=== PATIENT | male | born 1935 | race Caucasian/White ===

== ENCOUNTER 2017-03-14 16:11 | Inpatient (IN) | payer OTHER ==
[2017-03-14 16:30] VITALS: BMI 28.1
[2017-03-14] MEDS ORDERED: SODIUM CHLORIDE 500 ML IV STA (17:51)
[2017-03-14] MEDS ORDERED: PIPERACILLIN/TAZOB 4.5 GM/100 ML PRE-DOCKED IVPB ONE (17:57)
[2017-03-14] MEDS ORDERED: VANCOMYCIN 1,250 MG in DEXTROSE 5%-WATER - 250 ML IVPB ONE (17:57)
--- NOTE | 2017-03-14 18:05 | PDOC ---
History of Present Illness - General Chief Complaint: Redness To Affected Area Stated Complaint: INFECTION Time Seen by Provider: 03/14/17 16:52 History Source: Patient Exam Limitations: No Limitations - History of Present Illness Initial Comments: 03/14/17 18:08 Patient is a 81M with history of IDDM, HTN, Prostate Ca (last treated about 5 years ago, stable now), and prior hospitalization for cellulitis (2 years ago) here today complaining of right foot swelling and erythema, sent by his PCP. He says that he thought that he had the flu, including fevers and chills, last , then noticed that his leg was swollen and erythematous Sunday. He denies having a prior blood clot, recent travel, chest pain and shortness of breath. He also denies nausea and vomiting. Past History - Past Medical History Allergies/Adverse Reactions: Allergies Allergy/AdvReac Type Severity Reaction Status Date / Time No Known Allergies Allergy Verified 04/15/15 18:00 Home Medications: Ambulatory Orders Amlodipine Besylate [Norvasc -] 2.5 mg PO DAILY 04/15/15 Calcium Carb/Vitamin D3/Vit K1 [Calcium + D Soft Chewable Tab] 1 each PO DAILY 04/15/15 Fexofenadine HCl [Mariel] 180 mg PO DAILY PRN 04/15/15 Fluticasone Propionate [Flovent Diskus] 110 mcg IH DAILY 04/15/15 Glimepiride [Amaryl] 2 mg PO BID 04/15/15 Hydrochlorothiazide 50 mg PO DAILY 04/15/15 Insulin (Levemir) [Levemir Flexpen -] 26 units SQ DAILY 04/15/15 Insulin (Novolog) [Novolog Flexpen -] 6 units SQ HS 04/15/15 Irbesartan [Avapro] 300 mg PO DAILY 04/15/15 Metformin HCl 500 mg PO BID 04/15/15 [place]-3 Fatty Acids [[place]-3] 1,000 mg PO DAILY 04/15/15 Red Yeast Rice 120 mg PO DAILY 04/15/15 Tamsulosin HCl [Flomax -] 0.4 mg PO DAILY 04/15/15 Cephalexin Monohydrate [Keflex -] 500 mg PO TID #20 capsule 04/22/15 Asthma: Yes Cancer: Yes (Prostate Cancer) Cardiac Disorders: Yes Diabetes: Yes HTN: Yes - Surgical History Abdominal Surgery: Yes (HERNIA) Orthopedic Surgery: Yes (rotator cuff x 2) - Suicide/Smoking/Psychosocial Hx Smoking History: Never smoked Have you smoked in the past 12 months: No Hx Alcohol Use: No Drug/Substance Use Hx: No Substance Use Type: None Review of Systems - Review of Systems Comments:: 03/14/17 18:13 GENERAL/CONSTITUTIONAL: positive for fevers and chills. No weakness. HEAD, EYES, EARS, NOSE AND THROAT: No change in vision. No sore throat. CARDIOVASCULAR: No chest pain or shortness of breath RESPIRATORY: No cough, wheezing, or hemoptysis. GASTROINTESTINAL: No nausea, vomiting, diarrhea or constipation. GENITOURINARY: No dysuria, frequency, or change in urination. MUSCULOSKELETAL: Positive for right leg pain. No neck or back pain. SKIN: Positive for right leg erythema. NEUROLOGIC: No headache, vertigo, loss of consciousness, or change in strength/ sensation. HEMATOLOGIC/LYMPHATIC: No anemia, easy bleeding, or history of blood clots. ALLERGIC/IMMUNOLOGIC: No hives or skin allergy. *Physical Exam - Vital Signs Last Vital Signs Temp Pulse Resp BP Pulse Ox 98.7 F 117 H 20 156/82 95 03/14/17 16:26 03/14/17 16:26 03/14/17 16:26 03/14/17 16:26 03/14/17 16:26 - Physical Exam Comments: 03/14/17 18:15 GENERAL: Awake, alert, and fully oriented, in no acute distress HEAD: No signs of trauma, normocephalic, atraumatic EYES: PERRLA, EOMI, sclera anicteric, conjunctiva clear ENT: Auricles normal inspection, hearing grossly normal, nares patent, oropharynx clear without exudates. Moist mucosa NECK: Normal ROM, supple, no lymphadenopathy, JVD, or masses LUNGS: No distress, speaks full sentences, clear to auscultation bilaterally HEART: Regular rate and rhythm (HR 90), normal S1 and S2, no murmurs, rubs or gallops, peripheral pulses normal and equal bilaterally. ABDOMEN: Soft, nontender, normoactive bowel sounds. No guarding, no rebound. No masses EXTREMITIES: Normal range of motion. 2+ pitting edema in right leg. Right leg is erythematous and warm to just below albright. No crepitus. No clubbing or cyanosis. NEUROLOGICAL: Cranial nerves II through XII grossly intact. Normal speech, no focal sensorimotor deficits ED Treatment Course - LABORATORY CBC & Chemistry Diagram: 03/14/17 18:57 03/14/17 18:57 - RADIOLOGY Radiology Studies Ordered: Category Date Time Status DUPLEX VASCUL US-1 LEG [US] Stat Ultrasound 03/14/17 17:54 Ordered Medical Decision Making - Medical Decision Making 03/14/17 18:19 Patient is an 81M with history of IDDM, HTN, prostate ca and prior admission for cellulitis here today with right leg swelling and erythema. Tachycardic at triage. HR of 90 at examination. Vital signs otherwise stable and normal. Will evaluate with cbc, cmp, lactate blood cultures and x-ray. Will treat with fluids , vanc and zosyn. 03/14/17 19:41 Laboratory Tests 03/14/17 03/14/17 03/14/17 18:57 18:57 18:57 WBC 9.2 Hgb 14.6 D Hct 42.4 Plt Count 181 D INR 1.11 Anion Gap 7 L CBC normal, no gap, cmp reassuring, INR normal 03/14/17 19:[address] Fisher. Ultrasound still pending. 03/14/17 21:40 No DVT on ultrasound. 03/14/17 21:47 X-ray shows no subcutaneous air. *DC/Admit/Observation/Transfer Diagnosis at time of Disposition: Cellulitis of right anterior lower leg - Discharge Dispostion Condition at time of disposition: Stable Admit: Yes
[2017-03-14] MEDS ORDERED: PIPERACILLIN/TAZOB 4.5 GM 100 ML IVPB ONE (18:18)
[2017-03-14 19:05] LABS: BASOPHIL 0.8 % (0-2.0); EOSINOPHIL 1.2 % (0-4.5); MCH 31.2 pg (25.7-33.7); MCHC 34.4 g/dl (32.0-35.9); MEAN CELL VOLUME 90.5 fl (80-96); MEAN PLT VOLUME 9.4 fl (7.5-11.1); NEUTROPHILS 76.2 % (42.8-82.8); PLATELET COUNT 181 K/MM3 (134-434); WHITE BLOOD COUNT 9.2 K/mm3 (4.0-10.0)
[2017-03-14 19:18] LABS: INR 1.11 (0.82-1.09); PROTHROMBIN TIME (PATIENT) 12.2 SEC (9.98-11.88)
[2017-03-14 19:29] LABS: ALBUMIN 3.5 g/dl (3.4-5.0); ALK PHOS 90 U/L (45-117); ANION GAP 7 (8-16); BILIRUBIN,TOTAL 0.8 mg/dL (0.2-1.0); CALCIUM 9.2 mg/dL (8.5-10.1); CO2 28 mmol/L (21-32); CREATININE 0.8 mg/dL (0.7-1.3); GLUCOSE,RANDOM 176 mg/dL (74-106); SGPT/ALT 25 U/L (12-78); TOT PROT 6.9 g/dl (6.4-8.2)
[2017-03-14 19:35] LABS: SGOT/AST 24 U/L (15-37)
--- NOTE | 2017-03-14 19:42 | PDOC ---
Attending Attestation - Resident Resident Name: ParthAnup - ED Attending Attestation I have performed the following: I have examined & evaluated the patient, The case was reviewed & discussed with the resident, I agree w/resident's findings & plan, Exceptions are as noted - HPI HPI: 03/14/17 19:39 81-year-old male with history of insulin-dependent diabetes, prostate CVA, hypertension presents to the ER with pain, erythema and swelling of the right lower extremity for the past 3 days. - Physicial Exam PE: 03/14/17 19:40 Patient is awake and alert, nontoxic-appearing. Initial evaluation patient is noted to be afebrile and mildly tachycardic. cta rrr sft, nd, nt rle: + Well demarcated erythema extending from the right great toe to mid tibia , warm to touch, mildly tender to palpation consistent with cellulitis. No crepitus is appreciated. There is no proximal lymphadenopathy. - Medical Decision Making 03/14/17 19:41 Patient is 81-year-old male with insulin-dependent diabetes, hypertension, presents to the ER with right lower extremity cellulitis. Will administer IV vancomycin and Zosyn for polymicrobial infection; will rule out DVT with Doppler ultrasound. Will admit. <Sy Salvador - Last Filed: 03/14/17 19:39> - Medical Decision Making 03/14/17 19:42 Dr. Jonas paged via phone answering service. 03/14/17 19:45 Dr. Fuentes returned the page and patients case was discussed. Documentation prepared by Tatiana Blanco, acting as medical billing coordinator for Sy Salvador MD <Tatiana Blanco - Last Filed: 03/14/17 19:46>
[2017-03-14] MEDS ORDERED: LORATADINE 10 MG TABLET PO PRN (20:22)
[2017-03-14] MEDS ORDERED: ACETAMINOPHEN 325 MG TABLET (FP) PO PRN (20:26)
[2017-03-15] MEDS ORDERED: PIPERACILLIN/TAZOB 3.375 GM 3.375 GM in DEXTROSE 5%-WATER - 50 ML IVPB ONE ×2 (02:00→11:30)
[2017-03-15] MEDS ORDERED: PIPERACILLIN/TAZOBACTAM 3.375 GM VIAL IVPB ONE ×3 (02:11→17:11)
[2017-03-15] MEDS ORDERED: DEXTROSE 5%-WATER - 50 ML IVPB ONE ×3 (02:11→17:12)
[2017-03-15] MEDS: HEPARIN NA (PORCINE) 5,000 UNITS/ML 1ML VIAL SQ SCH ×3 (02:32→22:27)
[2017-03-15] MEDS: metFORMIN HCL 500 MG TABLET (FP) PO SCH ×2 (06:24→16:45)
[2017-03-15] MEDS: GLIMEPIRIDE 2 MG TABLET (FP) PO SCH ×2 (06:24→18:51)
[2017-03-15] MEDS: INSULIN SLIDING SCALE (NOVOLOG) 1 VIAL SQ SCH ×5 (06:25→22:32)
[2017-03-15 08:31] LABS: BASOPHIL 0.4 % (0-2.0); EOSINOPHIL 2.6 % (0-4.5); MCHC 34.4 g/dl (32.0-35.9); MEAN CELL VOLUME 90.1 fl (80-96); NEUTROPHILS 71.6 % (42.8-82.8); PLATELET COUNT 172 K/MM3 (134-434); RDW 13.7 % (11.9-15.9); WHITE BLOOD COUNT 7.8 K/mm3 (4.0-10.0)
--- NOTE | 2017-03-15 08:59 | HP ---
Admitting History and Physical - Primary Care Physician PCP: Anup Jonas - Admission Chief Complaint: patient came to my office on the day of admission complaining of feeling weak for 2 days with 101 fevers at home. On the morning of admission he awoke with a red warm rash on his right lateral calf and right foot and great toe. With a history of diabetes he mentioned his glucose recently was quite elevated often over 200. History of Present Illness: Patient is a known diabetic type II on insulin and recently had an improved glucose profile and hemoglobin A1c. However in the last few days he's noticed his glucose to be quite elevated over 200 and low grade fevers up to 101F for 2 nights. On the morning of admission he awoke with an erythematous pruritic rash on his right lateral calf, ankle, foot and swelling of his great toe and foot. Blood sugars remained elevated. He came to the office and a diagnosis acute cellulitis was made. He was sent to the emergency room. Blood cultures were done antibiotics were started and the patient was admitted with the diagnosis of acute cellulitis History Source: Patient Limitations to Obtaining History: No Limitations - Past Medical History Cardiovascular: Yes: HTN, Hyperlipdemia (prostate with radiation and seeds. Bladder cancer followed by Dr. Carranza at [facility]) Pulmonary: Yes: Pneumonia (???) Gastrointestinal: Yes: Other (?? diverticulosis) Renal/: Yes: Cancer (bladder and prostate) Infectious Disease: Yes: Other (pneumonia ) Psych: Yes: Anxiety Musculoskeletal: Yes: Osteoarthritis Endocrine: Yes: Diabetes Mellitus - Smoking History Smoking history: Never smoked Have you smoked in the past 12 months: No - Alcohol/Substance Use Hx Alcohol Use: No History of Substance Use: reports: None - Social History Usual Living Arrangement: Yes: With Spouse ADL: Independent Occupation: retired History of Recent Travel: No Home Medications - Allergies Allergies/Adverse Reactions: Allergies Allergy/AdvReac Type Severity Reaction Status Date / Time No Known Allergies Allergy Verified 03/14/17 22:07 - Home Medications Home Medications: Ambulatory Orders Amlodipine Besylate [Norvasc -] 2.5 mg PO DAILY 04/15/15 Calcium Carb/Vitamin D3/Vit K1 [Calcium + D Soft Chewable Tab] 1 each PO DAILY 04/15/15 Glimepiride [Amaryl] 2 mg PO BID 04/15/15 Hydrochlorothiazide 50 mg PO DAILY 04/15/15 Insulin (Levemir) [Levemir Flexpen -] 26 units SQ AM 04/15/15 Insulin (Novolog) [Novolog Flexpen -] 6 units SQ HS 04/15/15 Irbesartan [Avapro] 300 mg PO DAILY 04/15/15 Metformin HCl 500 mg PO BID 04/15/15 [place]-3 Fatty Acids [[place]-3] 1,000 mg PO DAILY 04/15/15 Tamsulosin HCl [Flomax -] 0.4 mg PO DAILY 04/15/15 Lovastatin 10 mg PO ASDIR 03/14/17 Potassium Chloride [Klor-Con 10] 20 meq PO DAILY 03/14/17 Family Disease History - Family Disease History Family Disease History: Heart Disease: Father, CA: Brother (colon), Respiratory : Father, Other: Mother (pneumonia) Review of Systems - Review of Systems Constitutional: reports: Fever, Lethargy. denies: Chills Eyes: denies: Blurred Vision Cardiovascular: denies: Chest Pain Respiratory: reports: No Symptoms Gastrointestinal: reports: No Symptoms Genitourinary: reports: Frequency. denies: Dysuria Musculoskeletal: reports: Muscle Weakness Integumentary: reports: Change in Color, Erythema, Pruritis, Rash Neurological: reports: Weakness Endocrine: denies: Excessive Sweating Physical Examination Vital Signs: Vital Signs Temperature 98.6 F 03/15/17 05:58 Pulse Rate 63 03/15/17 05:58 Respiratory Rate 18 03/15/17 05:58 Blood Pressure 118/58 03/15/17 05:58 O2 Sat by Pulse Oximetry (%) 96 03/15/17 01:44 Constitutional: Yes: Calm Eyes: Yes: Conjunctiva Clear Cardiovascular: Yes: Regular Rate and Rhythm Respiratory: Yes: Regular. No: Cough Gastrointestinal: Yes: Soft Renal/: No: Jaime Present Extremities: Yes: Erythema (and warmth right lower extremity especially right calf pruriticerythematous rash and erythema and swelling of the great toe and foot right side) Edema: Yes Edema: RLE: 1+ Peripheral Pulses WNL: Yes Integumentary: Yes: Erythema (right lower extremity as described above), Rash Neurological: Yes: Alert, Oriented Labs: CBC, BMP 03/15/17 06:45 Imaging - Results Chest X-ray: Report Reviewed Ultrasound: Report Reviewed EKG: Report Reviewed Problem List - Problems (1) Cellulitis of right anterior lower leg Assessment/Plan: on Zosyn IV. Seen by infectious disease DrMolly Initial white count 9200 Code(s): L03.115 - CELLULITIS OF RIGHT LOWER LIMB (2) Diabetes type 2, uncontrolled Assessment/Plan: BGM's have been ordered. Before this current acute illness blood glucose had been stable with a stable hemoglobin A1c. Code(s): E11.65 - TYPE 2 DIABETES MELLITUS WITH HYPERGLYCEMIA (3) Bladder cancer Assessment/Plan: Has a cystoscopy every [address] Bravo urology . Code(s): C67.9 - MALIGNANT NEOPLASM OF BLADDER, UNSPECIFIED (4) Prostate cancer Assessment/Plan: treated with radiation seeds. Recent lab, PSA nearly undetectable Code(s): C61 - MALIGNANT NEOPLASM OF PROSTATE
[2017-03-15 09:01] LABS: ALK PHOS 73 U/L (45-117); ANION GAP 11 (8-16); BILIRUBIN,TOTAL 0.9 mg/dL (0.2-1.0); CALCIUM 8.6 mg/dL (8.5-10.1); CO2 27 mmol/L (21-32); CREATININE 0.9 mg/dL (0.7-1.3); GLUCOSE,RANDOM 179 mg/dL (74-106); SGOT/AST 11 U/L (15-37); SGPT/ALT 20 U/L (12-78); TOT PROT 5.9 g/dl (6.4-8.2)
[2017-03-15] MEDS: TAMSULOSIN HCL 0.4 MG CAP.ER.24H (FP) PO SCH (09:30)
[2017-03-15] MEDS ORDERED: PIPERACILLIN/TAZOB 3.375 GM/50 ML PRE-DOCKED IVPB SCH (10:00)
[2017-03-15] MEDS ORDERED: INSULIN DETEMIR 100 UNITS/ML MDV SQ SCH (10:00)
[2017-03-15] MEDS ORDERED: RED YEAST RICE PO SCH (10:00)
[2017-03-15] MEDS: LOSARTAN POTASSIUM 50 MG TABLET (FP) PO SCH (10:38)
[2017-03-15] MEDS: HYDROCHLOROTHIAZIDE 25 MG TABLET (FP) PO SCH (10:38)
[2017-03-15] MEDS: amLODIPine BESYLATE 2.5 MG TABLET (FP) PO SCH (10:38)
--- NOTE | 2017-03-15 10:40 | EKG ---
Test Reason : Blood Pressure : / mmHG Vent. Rate : 063 BPM Atrial Rate : 063 BPM P-R Int : 172 ms QRS Dur : 116 ms QT Int : 388 ms P-R-T Axes : -20 -41 011 degrees QTc Int : 397 ms NORMAL SINUS RHYTHM LEFT AXIS DEVIATION ABNORMAL ECG WHEN COMPARED WITH ECG OF 15-APR-2015 18:11, FUSION COMPLEXES ARE NO LONGER PRESENT VENT. RATE HAS DECREASED BY 61 BPM RIGHT BUNDLE BRANCH BLOCK IS NO LONGER PRESENT CRITERIA FOR INFERIOR INFARCT ARE NO LONGER PRESENT Confirmed by MAGAN SEYMOUR MD ([id number]) on 03/15/2017 10:40:06 AM Referred By: JOSEPH HERNANDEZ Confirmed By:MAGAN SEYMOUR MD
[2017-03-15] MEDS: OMEGA-3 ACID ETHYL ESTERS (FATTY-ACIDS) 1 GM CAPSULE (FP) PO SCH (12:03)
[2017-03-15] MEDS ORDERED: FLU VACCINE QUAD 60 MCG/0.5 ML (MDV 17-18) IM ONE (14:45)
--- NOTE | 2017-03-15 16:37 | CON.ID ---
Consult Consult Specialty:: infectious diseases Referred by:: Reason for Consultation:: cellulitis of the rt leg - History of Present Illness Chief Complaint: swelling of the leg and redness History of Present Illness: 81M with history of IDDM, HTN, Prostate Ca ), and prior hospitalization for cellulitis (2 years ago) here today complaining of right foot swelling and erythema, sent by his PCP. He says that he thought that he had the flu, including fevers and chills, last , then noticed that his leg was swollen and erythematous Sunday. H according to his story the patient mentions it came on suddenly on his foot and then extended to the leg also the leg became warm and swollen currently he has cellulitis on the foot and the leg with interval normal skin the cellulitis is extending till the knee but not above that patient denies any fever and currently feels much better no other complaints - History Source History Provided By: Patient Limitations to Obtaining History: No Limitations - Past Medical History Cardio/Vascular: Yes: HTN Pulmonary: Yes: Pneumonia (???) Gastrointestinal: Yes: Other (?? diverticulosis) Renal/: Yes: Cancer (bladder and prostate) Infectious Disease: Yes: Other (pneumonia ) Psych: Yes: Addictions, Anxiety Endocrine: Yes: Diabetes Mellitus Additional Medical History: rotator cuff surgery - Alcohol/Substance Use Hx Alcohol Use: No History of Substance Use: reports: None - Smoking History Smoking history: Never smoked Have you smoked in the past 12 months: No - Social History Usual Living Arrangement: With Spouse ADL: Independent Occupation: retired History of Recent Travel: No Home Medications - Allergies Allergies/Adverse Reactions: Allergies Allergy/AdvReac Type Severity Reaction Status Date / Time No Known Allergies Allergy Verified 03/14/17 22:07 - Home Medications Home Medications: Ambulatory Orders Amlodipine Besylate [Norvasc -] 2.5 mg PO DAILY 04/15/15 Calcium Carb/Vitamin D3/Vit K1 [Calcium + D Soft Chewable Tab] 1 each PO DAILY 04/15/15 Glimepiride [Amaryl] 2 mg PO BID 04/15/15 Hydrochlorothiazide 50 mg PO DAILY 04/15/15 Insulin (Levemir) [Levemir Flexpen -] 26 units SQ AM 04/15/15 Insulin (Novolog) [Novolog Flexpen -] 6 units SQ HS 04/15/15 Irbesartan [Avapro] 300 mg PO DAILY 04/15/15 Metformin HCl 500 mg PO BID 04/15/15 [place]-3 Fatty Acids [[place]-3] 1,000 mg PO DAILY 04/15/15 Tamsulosin HCl [Flomax -] 0.4 mg PO DAILY 04/15/15 Lovastatin 10 mg PO ASDIR 03/14/17 Potassium Chloride [Klor-Con 10] 20 meq PO DAILY 03/14/17 Family Disease History - Family Disease History Family Disease History: Heart Disease: Father, CA: Brother (colon), Respiratory : Father, Other: Mother (pneumonia) Review of Systems - Review of Systems Constitutional: reports: Weakness Eyes: reports: No Symptoms HENT: reports: No Symptoms Neck: reports: No Symptoms Cardiovascular: reports: No Symptoms Respiratory: reports: No Symptoms Gastrointestinal: reports: No Symptoms Genitourinary: reports: No Symptoms Integumentary: reports: Change in Color, Erythema, Other Neurological: reports: No Symptoms Endocrine: reports: No Symptoms Hematology/Lymphatic: reports: No Symptoms Psychiatric: reports: No Symptoms Physical Exam Vital Signs: Vital Signs Temperature 98.5 F 03/15/17 14:19 Pulse Rate 77 03/15/17 14:19 Respiratory Rate 18 03/15/17 10:00 Blood Pressure 116/66 03/15/17 14:19 O2 Sat by Pulse Oximetry (%) 93 L 03/15/17 09:00 Constitutional: Yes: Well Nourished, No Distress, Calm Eyes: Yes: Conjunctiva Clear Cardiovascular: Yes: Regular Rate and Rhythm, S1, S2 Respiratory: Yes: Regular, CTA Bilaterally Gastrointestinal: Yes: Normal Bowel Sounds, Soft Musculoskeletal: Yes: Other Extremities: Yes: Erythema Edema: RLE: 1+ Integumentary: Yes: Erythema, Onychomycosis Neurological: Yes: Alert, Oriented Psychiatric: Yes: Alert, Oriented Labs: CBC, BMP 03/15/17 06:45 03/15/17 06:45 Imaging - Results Chest X-ray: Report Reviewed, Image Reviewed X-ray: Report Reviewed, Image Reviewed Assessment/Plan patient has multiple mediucal problems and developed sudden cellulitis of the leg which is improving also i have noticed that the patient does have fungal infection of the toes which could have lead to this patient is diabetic and he mentions that his sugars were very high cellulitits of the rt leg prostate ca swelling of the leg dm plan abx will add antifungal cream known history f prostate ca,once discharged should be evaluated again
[2017-03-15] MEDS: PIPERACILLIN/TAZOB 3.375 GM 3.375 GM in DEXTROSE 5%-WATER - 50 ML IVPB SCH (17:24)
[2017-03-15] MEDS: VANCOMYCIN 1,000 MG in SODIUM CHLORIDE 250 ML IVPB SCH (18:51)
[2017-03-15] MEDS: MOMETASONE FUROATE 220 MCG/IH INHALER IH SCH (22:27)
[2017-03-15] MEDS: NYSTATIN 100,000 UNIT/GM TOPICAL CREAM 15 GM TUBE TP SCH (22:32)
[2017-03-16] MEDS ORDERED: DEXTROSE 5%-WATER - 50 ML IVPB ONE ×3 (02:47→16:56)
[2017-03-16] MEDS ORDERED: PIPERACILLIN/TAZOBACTAM 3.375 GM VIAL IVPB ONE ×3 (02:47→16:56)
[2017-03-16] MEDS: PIPERACILLIN/TAZOB 3.375 GM 3.375 GM in DEXTROSE 5%-WATER - 50 ML IVPB SCH ×3 (03:04→17:04)
[2017-03-16] MEDS: INSULIN SLIDING SCALE (NOVOLOG) 1 VIAL SQ SCH ×4 (06:33→21:47)
[2017-03-16] MEDS: GLIMEPIRIDE 2 MG TABLET (FP) PO SCH ×2 (06:34→17:03)
[2017-03-16] MEDS: metFORMIN HCL 500 MG TABLET (FP) PO SCH ×2 (06:34→17:03)
[2017-03-16 08:13] LABS: BASOPHIL 0.6 % (0-2.0); EOSINOPHIL 4.6 % (0-4.5); MCH 31.2 pg (25.7-33.7); MCHC 34.3 g/dl (32.0-35.9); MEAN CELL VOLUME 90.9 fl (80-96); MEAN PLT VOLUME 8.7 fl (7.5-11.1); NEUTROPHILS 70.2 % (42.8-82.8); PLATELET COUNT 196 K/MM3 (134-434); WHITE BLOOD COUNT 7.1 K/mm3 (4.0-10.0)
[2017-03-16] MEDS: INSULIN DETEMIR 100 UNITS/ML MDV SQ SCH (08:45)
[2017-03-16] MEDS: TAMSULOSIN HCL 0.4 MG CAP.ER.24H (FP) PO SCH (08:48)
[2017-03-16 09:08] LABS: ANION GAP 5 (8-16); CALCIUM 8.7 mg/dL (8.5-10.1); CO2 31 mmol/L (21-32); CREATININE 0.9 mg/dL (0.7-1.3); GLUCOSE,RANDOM 97 mg/dL (74-106)
[2017-03-16] MEDS: HYDROCHLOROTHIAZIDE 25 MG TABLET (FP) PO SCH (09:51)
[2017-03-16] MEDS: amLODIPine BESYLATE 2.5 MG TABLET (FP) PO SCH (09:51)
[2017-03-16] MEDS: HEPARIN NA (PORCINE) 5,000 UNITS/ML 1ML VIAL SQ SCH ×2 (09:51→21:49)
[2017-03-16] MEDS: OMEGA-3 ACID ETHYL ESTERS (FATTY-ACIDS) 1 GM CAPSULE (FP) PO SCH (09:52)
[2017-03-16] MEDS: NYSTATIN 100,000 UNIT/GM TOPICAL CREAM 15 GM TUBE TP SCH ×2 (09:54→21:50)
--- NOTE | 2017-03-16 09:59 | PN ---
Progress Note (short form) - Note Progress Note: patient seen and examined. Rash right calf fading somewhat but area still warm and swelling great toe right foot improved but still swollen and erythematous. No chills or attempts noted in the last 24 hours. On IV Zosyn antibiotic as per infectious disease physician. BGM satisfactory. We'll start physical therapy. On exam: Vital Signs Temp 98.3 F 03/16/17 06:00 Pulse 77 03/16/17 06:00 Resp 18 03/16/17 06:00 BP 125/67 03/16/17 06:00 Pulse Ox 96 03/15/17 21:00 Intake & Output 03/15/17 03/15/17 03/16/17 11:59 23:59 11:59 Intake Total 450 1245 50 Output Total 270 Balance 450 975 50 Intake: IVPB 200 50 Oral 450 1045 Output: Urine 270 Void 270 Other: Voiding Method Toilet Urinal # Unmeasured Voids Void 1 2 1 Bowel Movement No No No he is alert and in no acute distress Chest clear auscultation Heart regular Abdomen soft Right lower extremity still warmth and erythema and swelling lateral right calf and great toe right foot. 1+ pedal edema right leg and foot Possible tinea pedis Abnormal Lab Results 03/16/17 03/16/17 07:25 07:25 Eosinophils % 4.6 H ESR 32 H Anion Gap 5 L between toes right foot Impression: Slowly resolving acute cellulitis right lower extremity right great toe and foot. Diabetes mellitus currently controlled with BGM monitoring. History of prostate cancer. History of bladder cancer followed by urology. Anxiety regarding who is ill at home. Tinea pedis. Plan: Continue IV antibiotics as per infectious disease. Continue monitoring BGM's Antifungal cream Problem List - Problems (1) Cellulitis of right anterior lower leg Code(s): L03.115 - CELLULITIS OF RIGHT LOWER LIMB (2) Diabetes type 2, uncontrolled Code(s): E11.65 - TYPE 2 DIABETES MELLITUS WITH HYPERGLYCEMIA (3) Bladder cancer Code(s): C67.9 - MALIGNANT NEOPLASM OF BLADDER, UNSPECIFIED (4) Prostate cancer Code(s): C61 - MALIGNANT NEOPLASM OF PROSTATE
[2017-03-16] MEDS: LOSARTAN POTASSIUM 50 MG TABLET (FP) PO SCH (10:08)
[2017-03-16 10:29] LABS: ERYTHROCYTE SEDIMENTATION RATE 32 mm/hr (0-20)
[2017-03-16] MEDS: VANCOMYCIN 1,000 MG in SODIUM CHLORIDE 250 ML IVPB SCH (10:52)
[2017-03-16] MEDS ORDERED: INSULIN (NOVOLOG) ASPART 100 UNITS/ML 10ML VIAL ONE ×2 (11:54→20:06)
[2017-03-16] MEDS ORDERED: INSULIN DETEMIR 100 UNITS/ML MDV SQ ONE (12:28)
--- NOTE | 2017-03-16 14:49 | PN ---
Progress Note, Physician History of Present Illness: cellulitis has improved remarkably still present - Current Medication List Current Medications: Active Medications Acetaminophen (Tylenol -) 650 mg PO Q6H PRN PRN Reason: FEVER OR PAIN Amlodipine Besylate (Norvasc -) 2.5 mg PO DAILY [facility] Last Admin: 03/16/17 09:51 Dose: 2.5 mg Glimepiride (Amaryl -) 2 mg PO BIDAC [facility] Last Admin: 03/16/17 06:34 Dose: 2 mg Heparin Sodium (Porcine) (Heparin -) 5,000 unit SQ BID [facility] Last Admin: 03/16/17 09:51 Dose: 5,000 unit Hydrochlorothiazide (Hctz -) 25 mg PO DAILY [facility] Last Admin: 03/16/17 09:51 Dose: 25 mg Vancomycin HCl 1,000 mg/ (Sodium Chloride) 250 mls @ 250 mls/hr IVPB DAILY [facility]ATHALIE PRN Reason: Protocol Last Admin: 03/16/17 10:52 Dose: 250 mls/hr Piperacillin Sod/Tazobactam (Sod 3.375 gm/ Dextrose) 50 mls @ 100 mls/hr IVPB Q8H-IV NATHALIE PRN Reason: Protocol Last Admin: 03/16/17 09:54 Dose: 100 mls/hr Insulin Aspart (Novolog Vial Sliding Scale -) 1 vial SQ ACHS [facility] PRN Reason: Protocol Last Admin: 03/16/17 12:23 Dose: 2 units Insulin Detemir (Levemir Vial) 26 units SQ DAILY@0800 [facility] Last Admin: 03/16/17 08:45 Dose: 26 units Loratadine (Claritin -) 10 mg PO DAILY PRN PRN Reason: ALLERGY Losartan Potassium (Cozaar -) 100 mg PO DAILY [facility] Last Admin: 03/16/17 10:08 Dose: 100 mg Metformin HCl (Glucophage -) 500 mg PO BIDAC [facility] Last Admin: 03/16/17 06:34 Dose: 500 mg Mometasone Furoate (Asmanex 220mcg -) 1 puff IH HS [facility] Last Admin: 03/15/17 22:27 Dose: 1 puff Nystatin (Mycostatin Cream -) 1 applic TP BID [facility] Last Admin: 03/16/17 09:54 Dose: 1 applic [id number] Ethyl Esters (Lovaza -) 1 gm PO DAILY [facility] Last Admin: 03/16/17 09:52 Dose: 1 gm Tamsulosin HCl (Flomax -) 0.4 mg PO DAILY@0830 [facility] Last Admin: 03/16/17 08:48 Dose: 0.4 mg - Objective Vital Signs: Vital Signs Temperature 97.8 F 03/16/17 09:02 Pulse Rate 84 03/16/17 09:02 Respiratory Rate 18 03/16/17 09:02 Blood Pressure 131/80 03/16/17 09:02 O2 Sat by Pulse Oximetry (%) 99 03/16/17 09:00 Constitutional: Yes: No Distress, Calm Cardiovascular: Yes: Regular Rate and Rhythm Respiratory: Yes: Regular, CTA Bilaterally Gastrointestinal: Yes: Normal Bowel Sounds, Soft Musculoskeletal: Yes: Other Extremities: Yes: Erythema Neurological: Yes: Alert, Oriented Psychiatric: Yes: Alert Labs: CBC, BMP 03/16/17 07:25 03/16/17 07:25 INR, PTT INR 1.11 (0.82-1.09) 03/14/17 18:57 Assessment/Plan cellulitits of the rt leg prostate ca swelling of the leg dm plan continue abx continue antifungal elevation of leg rest as per primary team
[2017-03-16] MEDS ORDERED: PT OWN MED DRAWER 7, Y5N ONE (20:07)
[2017-03-16] MEDS: MOMETASONE FUROATE 220 MCG/IH INHALER IH SCH (21:48)
[2017-03-17] MEDS ORDERED: PIPERACILLIN/TAZOBACTAM 3.375 GM VIAL IVPB ONE ×3 (02:35→18:06)
[2017-03-17] MEDS ORDERED: DEXTROSE 5%-WATER - 50 ML IVPB ONE ×3 (02:35→18:07)
[2017-03-17] MEDS: PIPERACILLIN/TAZOB 3.375 GM 3.375 GM in DEXTROSE 5%-WATER - 50 ML IVPB SCH ×3 (03:00→18:08)
[2017-03-17] MEDS ORDERED: PT OWN MED DRAWER 7, Y5N ONE ×2 (06:31→08:36)
[2017-03-17] MEDS: GLIMEPIRIDE 2 MG TABLET (FP) PO SCH ×2 (06:37→18:02)
[2017-03-17] MEDS: metFORMIN HCL 500 MG TABLET (FP) PO SCH ×2 (06:37→18:06)
[2017-03-17] MEDS: INSULIN SLIDING SCALE (NOVOLOG) 1 VIAL SQ SCH ×4 (06:38→22:09)
[2017-03-17] MEDS: INSULIN DETEMIR 100 UNITS/ML MDV SQ SCH (08:38)
[2017-03-17] MEDS: TAMSULOSIN HCL 0.4 MG CAP.ER.24H (FP) PO SCH (08:39)
[2017-03-17] MEDS: HEPARIN NA (PORCINE) 5,000 UNITS/ML 1ML VIAL SQ SCH ×2 (10:49→22:08)
[2017-03-17] MEDS: HYDROCHLOROTHIAZIDE 25 MG TABLET (FP) PO SCH (10:49)
[2017-03-17] MEDS: LOSARTAN POTASSIUM 50 MG TABLET (FP) PO SCH (10:49)
[2017-03-17] MEDS: amLODIPine BESYLATE 2.5 MG TABLET (FP) PO SCH (10:49)
[2017-03-17] MEDS: NYSTATIN 100,000 UNIT/GM TOPICAL CREAM 15 GM TUBE TP SCH ×2 (10:50→22:08)
[2017-03-17] MEDS: OMEGA-3 ACID ETHYL ESTERS (FATTY-ACIDS) 1 GM CAPSULE (FP) PO SCH (10:50)
[2017-03-17] MEDS: VANCOMYCIN 1,000 MG in SODIUM CHLORIDE 250 ML IVPB SCH (11:31)
--- NOTE | 2017-03-17 12:34 | PN ---
Progress Note, Physician History of Present Illness: Pt seen and examined. Records in EMR, labs reviewed. Events noted. Pt states he is feeling better. - Current Medication List Current Medications: Active Medications Acetaminophen (Tylenol -) 650 mg PO Q6H PRN PRN Reason: FEVER OR PAIN Amlodipine Besylate (Norvasc -) 2.5 mg PO DAILY [facility] Last Admin: 03/17/17 10:49 Dose: 2.5 mg Glimepiride (Amaryl -) 2 mg PO BIDAC [facility] Last Admin: 03/17/17 06:37 Dose: 2 mg Heparin Sodium (Porcine) (Heparin -) 5,000 unit SQ BID [facility] Last Admin: 03/17/17 10:49 Dose: 5,000 unit Hydrochlorothiazide (Hctz -) 25 mg PO DAILY [facility] Last Admin: 03/17/17 10:49 Dose: 25 mg Vancomycin HCl 1,000 mg/ (Sodium Chloride) 250 mls @ 250 mls/hr IVPB DAILY [facility] PRN Reason: Protocol Last Admin: 03/17/17 11:31 Dose: 250 mls/hr Piperacillin Sod/Tazobactam (Sod 3.375 gm/ Dextrose) 50 mls @ 100 mls/hr IVPB Q8H-IV [facility] PRN Reason: Protocol Last Admin: 03/17/17 10:28 Dose: 100 mls/hr Insulin Aspart (Novolog Vial Sliding Scale -) 1 vial SQ ACHS [facility] PRN Reason: Protocol Last Admin: 03/17/17 12:21 Dose: 4 units Insulin Detemir (Levemir Vial) 26 units SQ DAILY@0800 [facility] Last Admin: 03/17/17 08:38 Dose: 26 units Loratadine (Claritin -) 10 mg PO DAILY PRN PRN Reason: ALLERGY Losartan Potassium (Cozaar -) 100 mg PO DAILY [facility] Last Admin: 03/17/17 10:49 Dose: 100 mg Metformin HCl (Glucophage -) 500 mg PO BIDAC [facility] Last Admin: 03/17/17 06:37 Dose: 500 mg Mometasone Furoate (Asmanex 220mcg -) 1 puff IH HS [facility] Last Admin: 03/16/17 21:48 Dose: 1 puff Nystatin (Mycostatin Cream -) 1 applic TP BID [facility] Last Admin: 03/17/17 10:50 Dose: 1 applic Ssgxa-7-Awpi Ethyl Esters (Lovaza -) 1 gm PO DAILY [facility] Last Admin: 03/17/17 10:50 Dose: 1 gm Tamsulosin HCl (Flomax -) 0.4 mg PO DAILY@0830 [facility] Last Admin: 03/17/17 08:39 Dose: 0.4 mg - Objective Vital Signs: Vital Signs Temperature 98.8 F 03/17/17 06:00 Pulse Rate 69 03/17/17 06:00 Respiratory Rate 18 03/17/17 06:00 Blood Pressure 121/68 03/17/17 06:00 O2 Sat by Pulse Oximetry (%) 97 03/16/17 21:00 Constitutional: Yes: No Distress, Calm Eyes: Yes: WNL HENT: Yes: WNL Neck: Yes: WNL Cardiovascular: Yes: Regular Rate and Rhythm Respiratory: Yes: CTA Bilaterally Gastrointestinal: Yes: Normal Bowel Sounds, Soft Genitourinary: Yes: WNL Musculoskeletal: Yes: WNL Extremities: Yes: Erythema (RT leg with mod erythema, less warmth/tenderness) Neurological: Yes: Alert, Oriented Labs: CBC, BMP 03/16/17 07:25 03/16/17 07:25 INR, PTT INR 1.11 (0.82-1.09) 03/14/17 18:57 ESR - 32 Problem List - Problems (1) Cellulitis of right anterior lower leg Code(s): L03.115 - CELLULITIS OF RIGHT LOWER LIMB (2) Prostate cancer Code(s): C61 - MALIGNANT NEOPLASM OF PROSTATE (3) Onychomycosis Code(s): B35.1 - TINEA UNGUIUM Assessment/Plan RT LE cellulitis - clinically improving - continue antibiotics, will switch to po if continues to improve
[2017-03-17] MEDS ORDERED: INSULIN DETEMIR 100 UNITS/ML MDV SQ ONE (13:06)
--- NOTE | 2017-03-17 16:51 | PN ---
Progress Note, Physician History of Present Illness: no complaints - Current Medication List Current Medications: Active Medications Acetaminophen (Tylenol -) 650 mg PO Q6H PRN PRN Reason: FEVER OR PAIN Amlodipine Besylate (Norvasc -) 2.5 mg PO DAILY [facility] Last Admin: 03/17/17 10:49 Dose: 2.5 mg Glimepiride (Amaryl -) 2 mg PO BIDAC [facility] Last Admin: 03/17/17 06:37 Dose: 2 mg Heparin Sodium (Porcine) (Heparin -) 5,000 unit SQ BID [facility] Last Admin: 03/17/17 10:49 Dose: 5,000 unit Hydrochlorothiazide (Hctz -) 25 mg PO DAILY [facility] Last Admin: 03/17/17 10:49 Dose: 25 mg Vancomycin HCl 1,000 mg/ (Sodium Chloride) 250 mls @ 250 mls/hr IVPB DAILY [facility] PRN Reason: Protocol Last Admin: 03/17/17 11:31 Dose: 250 mls/hr Piperacillin Sod/Tazobactam (Sod 3.375 gm/ Dextrose) 50 mls @ 100 mls/hr IVPB Q8H-IV [facility] PRN Reason: Protocol Last Admin: 03/17/17 10:28 Dose: 100 mls/hr Insulin Aspart (Novolog Vial Sliding Scale -) 1 vial SQ ACHS [facility] PRN Reason: Protocol Last Admin: 03/17/17 12:21 Dose: 4 units Insulin Detemir (Levemir Vial) 26 units SQ DAILY@0800 [facility] Last Admin: 03/17/17 08:38 Dose: 26 units Loratadine (Claritin -) 10 mg PO DAILY PRN PRN Reason: ALLERGY Losartan Potassium (Cozaar -) 100 mg PO DAILY [facility] Last Admin: 03/17/17 10:49 Dose: 100 mg Metformin HCl (Glucophage -) 500 mg PO BIDAC [facility] Last Admin: 03/17/17 06:37 Dose: 500 mg Mometasone Furoate (Asmanex 220mcg -) 1 puff IH HS [facility] Last Admin: 03/16/17 21:48 Dose: 1 puff Nystatin (Mycostatin Cream -) 1 applic TP BID [facility] Last Admin: 03/17/17 10:50 Dose: 1 applic Eutjz-6-Yqhb Ethyl Esters (Lovaza -) 1 gm PO DAILY [facility] Last Admin: 03/17/17 10:50 Dose: 1 gm Tamsulosin HCl (Flomax -) 0.4 mg PO DAILY@0830 [facility] Last Admin: 03/17/17 08:39 Dose: 0.4 mg - Objective Vital Signs: Vital Signs Temperature 98.2 F 03/17/17 13:58 Pulse Rate 66 03/17/17 13:58 Respiratory Rate 18 03/17/17 10:00 Blood Pressure 127/56 03/17/17 13:58 O2 Sat by Pulse Oximetry (%) 99 03/17/17 09:00 Constitutional: Yes: No Distress HENT: Yes: Atraumatic Neck: Yes: Supple Cardiovascular: Yes: Regular Rate and Rhythm Respiratory: Yes: CTA Bilaterally Gastrointestinal: Yes: Normal Bowel Sounds Extremities: Yes: Other (rlex cellulitis much improved) Neurological: Yes: Alert, Oriented Labs: CBC, BMP 03/16/17 07:25 03/16/17 07:25 INR, PTT INR 1.11 (0.82-1.09) 03/14/17 18:57 Problem List - Problems (1) Cellulitis of right anterior lower leg Assessment/Plan: iv abx id on board Code(s): L03.115 - CELLULITIS OF RIGHT LOWER LIMB (2) Diabetes type 2, uncontrolled Assessment/Plan: on insulin bgms Code(s): E11.65 - TYPE 2 DIABETES MELLITUS WITH HYPERGLYCEMIA (3) HTN (hypertension) Assessment/Plan: on meds stable Code(s): I10 - ESSENTIAL (PRIMARY) HYPERTENSION Assessment/Plan covering for dr higginbotham/valerie
[2017-03-17] MEDS: MOMETASONE FUROATE 220 MCG/IH INHALER IH SCH (22:08)
[2017-03-18] MEDS ORDERED: PIPERACILLIN/TAZOBACTAM 3.375 GM VIAL IVPB ONE ×3 (01:27→17:21)
[2017-03-18] MEDS ORDERED: DEXTROSE 5%-WATER - 50 ML IVPB ONE ×3 (01:28→17:21)
[2017-03-18] MEDS: PIPERACILLIN/TAZOB 3.375 GM 3.375 GM in DEXTROSE 5%-WATER - 50 ML IVPB SCH ×3 (02:34→17:48)
[2017-03-18] MEDS: INSULIN SLIDING SCALE (NOVOLOG) 1 VIAL SQ SCH ×4 (06:17→21:27)
[2017-03-18] MEDS: metFORMIN HCL 500 MG TABLET (FP) PO SCH ×2 (06:17→17:55)
[2017-03-18] MEDS: GLIMEPIRIDE 2 MG TABLET (FP) PO SCH ×2 (06:17→17:55)
[2017-03-18] MEDS: INSULIN DETEMIR 100 UNITS/ML MDV SQ SCH (08:07)
[2017-03-18] MEDS: TAMSULOSIN HCL 0.4 MG CAP.ER.24H (FP) PO SCH (08:08)
[2017-03-18] MEDS ORDERED: PT OWN MED DRAWER 7, Y5N ONE ×3 (08:56→19:25)
[2017-03-18] MEDS: amLODIPine BESYLATE 2.5 MG TABLET (FP) PO SCH (09:01)
[2017-03-18] MEDS: HYDROCHLOROTHIAZIDE 25 MG TABLET (FP) PO SCH (09:01)
[2017-03-18] MEDS: OMEGA-3 ACID ETHYL ESTERS (FATTY-ACIDS) 1 GM CAPSULE (FP) PO SCH (09:02)
[2017-03-18] MEDS: LOSARTAN POTASSIUM 50 MG TABLET (FP) PO SCH (09:03)
[2017-03-18] MEDS: HEPARIN NA (PORCINE) 5,000 UNITS/ML 1ML VIAL SQ SCH ×2 (09:03→21:21)
[2017-03-18] MEDS: NYSTATIN 100,000 UNIT/GM TOPICAL CREAM 15 GM TUBE TP SCH ×2 (09:04→21:21)
[2017-03-18] MEDS: VANCOMYCIN 1,000 MG in SODIUM CHLORIDE 250 ML IVPB SCH (10:14)
[2017-03-18] MEDS ORDERED: INSULIN (NOVOLOG) ASPART 100 UNITS/ML 10ML VIAL ONE (11:57)
--- NOTE | 2017-03-18 13:34 | PN ---
Progress Note, Physician History of Present Illness: no complaints - Current Medication List Current Medications: Active Medications Acetaminophen (Tylenol -) 650 mg PO Q6H PRN PRN Reason: FEVER OR PAIN Amlodipine Besylate (Norvasc -) 2.5 mg PO DAILY [facility] Last Admin: 03/18/17 09:01 Dose: 2.5 mg Glimepiride (Amaryl -) 2 mg PO BIDAC [facility] Last Admin: 03/18/17 06:17 Dose: 2 mg Heparin Sodium (Porcine) (Heparin -) 5,000 unit SQ BID [facility] Last Admin: 03/18/17 09:03 Dose: 5,000 unit Hydrochlorothiazide (Hctz -) 25 mg PO DAILY [facility] Last Admin: 03/18/17 09:01 Dose: 25 mg Vancomycin HCl 1,000 mg/ (Sodium Chloride) 250 mls @ 250 mls/hr IVPB DAILY [facility] PRN Reason: Protocol Last Admin: 03/18/17 10:14 Dose: 250 mls/hr Piperacillin Sod/Tazobactam (Sod 3.375 gm/ Dextrose) 50 mls @ 100 mls/hr IVPB Q8H-IV [facility] PRN Reason: Protocol Last Admin: 03/18/17 09:03 Dose: 100 mls/hr Insulin Aspart (Novolog Vial Sliding Scale -) 1 vial SQ ACHS [facility] PRN Reason: Protocol Last Admin: 03/18/17 11:59 Dose: 2 units Insulin Detemir (Levemir Vial) 26 units SQ DAILY@0800 [facility] Last Admin: 03/18/17 08:07 Dose: 26 units Loratadine (Claritin -) 10 mg PO DAILY PRN PRN Reason: ALLERGY Losartan Potassium (Cozaar -) 100 mg PO DAILY [facility] Last Admin: 03/18/17 09:03 Dose: 100 mg Metformin HCl (Glucophage -) 500 mg PO BIDAC [facility] Last Admin: 03/18/17 06:17 Dose: 500 mg Mometasone Furoate (Asmanex 220mcg -) 1 puff IH HS [facility] Last Admin: 03/17/17 22:08 Dose: 1 puff Nystatin (Mycostatin Cream -) 1 applic TP BID [facility] Last Admin: 03/18/17 09:04 Dose: 1 applic Adeon-6-Gell Ethyl Esters (Lovaza -) 1 gm PO DAILY [facility] Last Admin: 03/18/17 09:02 Dose: 1 gm Tamsulosin HCl (Flomax -) 0.4 mg PO DAILY@0830 [facility] Last Admin: 03/18/17 08:08 Dose: 0.4 mg - Objective Vital Signs: Vital Signs Temperature 97.0 F L 03/18/17 10:00 Pulse Rate 75 03/18/17 10:00 Respiratory Rate 20 03/18/17 10:00 Blood Pressure 151/73 03/18/17 10:00 O2 Sat by Pulse Oximetry (%) 97 03/18/17 09:00 Constitutional: Yes: No Distress HENT: Yes: Atraumatic Neck: Yes: Supple Cardiovascular: Yes: Regular Rate and Rhythm Respiratory: Yes: CTA Bilaterally Gastrointestinal: Yes: Normal Bowel Sounds Extremities: Yes: Other (R yo cellulitis) Neurological: Yes: Alert, Oriented Labs: CBC, BMP 03/16/17 07:25 03/16/17 07:25 INR, PTT INR 1.11 (0.82-1.09) 03/14/17 18:57 Problem List - Problems (1) Cellulitis of right anterior lower leg Assessment/Plan: iv abx id on board Code(s): L03.115 - CELLULITIS OF RIGHT LOWER LIMB (2) Diabetes type 2, uncontrolled Assessment/Plan: on insulin bgms Code(s): E11.65 - TYPE 2 DIABETES MELLITUS WITH HYPERGLYCEMIA (3) HTN (hypertension) Assessment/Plan: on meds stable Code(s): I10 - ESSENTIAL (PRIMARY) HYPERTENSION Assessment/Plan covering for dr higginbotham/valerie
--- NOTE | 2017-03-18 14:36 | PN ---
Progress Note, Physician History of Present Illness: Pt feels well. No tenderness in RLE but still with less swelling. No new complaints. - Current Medication List Current Medications: Active Medications Acetaminophen (Tylenol -) 650 mg PO Q6H PRN PRN Reason: FEVER OR PAIN Amlodipine Besylate (Norvasc -) 2.5 mg PO DAILY [facility] Last Admin: 03/18/17 09:01 Dose: 2.5 mg Glimepiride (Amaryl -) 2 mg PO BIDAC [facility] Last Admin: 03/18/17 06:17 Dose: 2 mg Heparin Sodium (Porcine) (Heparin -) 5,000 unit SQ BID [facility] Last Admin: 03/18/17 09:03 Dose: 5,000 unit Hydrochlorothiazide (Hctz -) 25 mg PO DAILY [facility] Last Admin: 03/18/17 09:01 Dose: 25 mg Vancomycin HCl 1,000 mg/ (Sodium Chloride) 250 mls @ 250 mls/hr IVPB DAILY [facility] PRN Reason: Protocol Last Admin: 03/18/17 10:14 Dose: 250 mls/hr Piperacillin Sod/Tazobactam (Sod 3.375 gm/ Dextrose) 50 mls @ 100 mls/hr IVPB Q8H-IV [facility] PRN Reason: Protocol Last Admin: 03/18/17 09:03 Dose: 100 mls/hr Insulin Aspart (Novolog Vial Sliding Scale -) 1 vial SQ ACHS [facility] PRN Reason: Protocol Last Admin: 03/18/17 11:59 Dose: 2 units Insulin Detemir (Levemir Vial) 26 units SQ DAILY@0800 [facility] Last Admin: 03/18/17 08:07 Dose: 26 units Loratadine (Claritin -) 10 mg PO DAILY PRN PRN Reason: ALLERGY Losartan Potassium (Cozaar -) 100 mg PO DAILY [facility] Last Admin: 03/18/17 09:03 Dose: 100 mg Metformin HCl (Glucophage -) 500 mg PO BIDAC [facility] Last Admin: 03/18/17 06:17 Dose: 500 mg Mometasone Furoate (Asmanex 220mcg -) 1 puff IH HS [facility] Last Admin: 03/17/17 22:08 Dose: 1 puff Nystatin (Mycostatin Cream -) 1 applic TP BID [facility] Last Admin: 03/18/17 09:04 Dose: 1 applic Abuqv-4-Yvmw Ethyl Esters (Lovaza -) 1 gm PO DAILY [facility] Last Admin: 03/18/17 09:02 Dose: 1 gm Tamsulosin HCl (Flomax -) 0.4 mg PO DAILY@0830 [facility] Last Admin: 03/18/17 08:08 Dose: 0.4 mg - Objective Vital Signs: Vital Signs Temperature 97.0 F L 03/18/17 10:00 Pulse Rate 75 03/18/17 10:00 Respiratory Rate 20 03/18/17 10:00 Blood Pressure 151/73 03/18/17 10:00 O2 Sat by Pulse Oximetry (%) 97 03/18/17 09:00 Constitutional: Yes: No Distress, Calm HENT: Yes: WNL Neck: Yes: WNL Cardiovascular: Yes: Regular Rate and Rhythm Respiratory: Yes: Regular Gastrointestinal: Yes: Normal Bowel Sounds, Soft Genitourinary: Yes: WNL Extremities: Yes: Erythema (Rt ant. tibial erythema improved, Rt forefoot erythema persists, no tenderness) Neurological: Yes: Alert Psychiatric: Yes: WNL Labs: CBC, BMP 03/16/17 07:25 03/16/17 07:25 INR, PTT INR 1.11 (0.82-1.09) 03/14/17 18:57 Problem List - Problems (1) Cellulitis of right anterior lower leg Code(s): L03.115 - CELLULITIS OF RIGHT LOWER LIMB (2) Prostate cancer Code(s): C61 - MALIGNANT NEOPLASM OF PROSTATE (3) Onychomycosis Code(s): B35.1 - TINEA UNGUIUM Assessment/Plan - clinically improving but still with erythema of Rt forefoot - cont. zosyn for now plan switch to po antibiotics with continued improvement
[2017-03-18] MEDS: MOMETASONE FUROATE 220 MCG/IH INHALER IH SCH (21:20)
[2017-03-19] MEDS ORDERED: PIPERACILLIN/TAZOBACTAM 3.375 GM VIAL IVPB ONE ×3 (00:25→17:06)
[2017-03-19] MEDS ORDERED: DEXTROSE 5%-WATER - 50 ML IVPB ONE ×3 (00:26→17:07)
[2017-03-19] MEDS: PIPERACILLIN/TAZOB 3.375 GM 3.375 GM in DEXTROSE 5%-WATER - 50 ML IVPB SCH ×3 (01:41→17:20)
[2017-03-19] MEDS: INSULIN SLIDING SCALE (NOVOLOG) 1 VIAL SQ SCH ×4 (06:41→22:23)
[2017-03-19] MEDS: GLIMEPIRIDE 2 MG TABLET (FP) PO SCH ×2 (06:42→17:20)
[2017-03-19] MEDS: metFORMIN HCL 500 MG TABLET (FP) PO SCH ×2 (06:42→17:20)
[2017-03-19] MEDS ORDERED: PT OWN MED DRAWER 7, Y5N ONE ×5 (06:49→19:56)
[2017-03-19] MEDS ORDERED: INSULIN (NOVOLOG) ASPART 100 UNITS/ML 10ML VIAL ONE ×3 (06:50→11:23)
[2017-03-19] MEDS: TAMSULOSIN HCL 0.4 MG CAP.ER.24H (FP) PO SCH (08:24)
[2017-03-19] MEDS: INSULIN DETEMIR 100 UNITS/ML MDV SQ SCH (08:50)
[2017-03-19] MEDS: amLODIPine BESYLATE 2.5 MG TABLET (FP) PO SCH (09:18)
[2017-03-19] MEDS: HYDROCHLOROTHIAZIDE 25 MG TABLET (FP) PO SCH (09:18)
[2017-03-19] MEDS: LOSARTAN POTASSIUM 50 MG TABLET (FP) PO SCH (09:18)
[2017-03-19] MEDS: HEPARIN NA (PORCINE) 5,000 UNITS/ML 1ML VIAL SQ SCH ×2 (09:19→22:20)
[2017-03-19] MEDS: NYSTATIN 100,000 UNIT/GM TOPICAL CREAM 15 GM TUBE TP SCH ×2 (09:23→22:23)
[2017-03-19] MEDS: OMEGA-3 ACID ETHYL ESTERS (FATTY-ACIDS) 1 GM CAPSULE (FP) PO SCH (09:23)
--- NOTE | 2017-03-19 10:14 | PN ---
Progress Note (short form) - Note Progress Note: Patient seen and examined. Await F/U ID Re: PO antibiotics. Patient still has some swelling great toe area right foot but admits that a lot of the heat and redness his disappearing from his right calf and foot. Continues on IV antibiotics. BGM is being monitored Vital Signs Temp 98.5 F 03/19/17 19:12 Pulse 67 03/19/17 19:12 Resp 18 03/19/17 19:12 BP 135/75 03/19/17 19:12 Pulse Ox 98 03/19/17 08:17 Intake & Output 03/18/17 03/19/17 03/19/17 23:59 11:59 23:59 Intake Total 1100 550 600 Balance 1100 550 600 Intake: IVPB 50 100 200 Oral 900 300 400 Oral Supplement 150 150 Other: Voiding Method Toilet Toilet Toilet # Unmeasured Voids Void 1 1 4 Bowel Movement Yes No No # Bowel Movements 1 on exam: Alert Right foot mild edema laterally right calf but erythema has nearly disappeared. Slight swelling great toe right foot. Tinea pedis still noted between toes right foot. Breathing is regular Patient had a bed to bathroom. impression: Acute cellulitis, right lower extremity calf foot and great toe improved. Diabetes mellitus, uncontrolled due to current infection. History of bladder cancer. History of prostate cancer treated with radiation seeds. Plan: Hopefully can switch to oral medications and be discharged by tomorrow. Followup BGM. out of bed when necessary Problem List - Problems (1) Cellulitis of right anterior lower leg Code(s): L03.115 - CELLULITIS OF RIGHT LOWER LIMB (2) Diabetes type 2, uncontrolled Code(s): E11.65 - TYPE 2 DIABETES MELLITUS WITH HYPERGLYCEMIA (3) Bladder cancer Code(s): C67.9 - MALIGNANT NEOPLASM OF BLADDER, UNSPECIFIED (4) Prostate cancer Code(s): C61 - MALIGNANT NEOPLASM OF PROSTATE
--- NOTE | 2017-03-19 13:45 | PN ---
Progress Note, Physician History of Present Illness: cellulitis has improved remarkably still present - Current Medication List Current Medications: Active Medications Acetaminophen (Tylenol -) 650 mg PO Q6H PRN PRN Reason: FEVER OR PAIN Amlodipine Besylate (Norvasc -) 2.5 mg PO DAILY [facility] Last Admin: 03/19/17 09:18 Dose: 2.5 mg Glimepiride (Amaryl -) 2 mg PO BIDAC [facility] Last Admin: 03/19/17 06:42 Dose: 2 mg Heparin Sodium (Porcine) (Heparin -) 5,000 unit SQ BID [facility] Last Admin: 03/19/17 09:19 Dose: 5,000 unit Hydrochlorothiazide (Hctz -) 25 mg PO DAILY [facility] Last Admin: 03/19/17 09:18 Dose: 25 mg Piperacillin Sod/Tazobactam (Sod 3.375 gm/ Dextrose) 50 mls @ 100 mls/hr IVPB Q8H-IV [facility] PRN Reason: Protocol Last Admin: 03/19/17 09:19 Dose: 100 mls/hr Insulin Aspart (Novolog Vial Sliding Scale -) 1 vial SQ ACHS [facility] PRN Reason: Protocol Last Admin: 03/19/17 11:18 Dose: 4 units Insulin Detemir (Levemir Vial) 26 units SQ DAILY@0800 [facility] Last Admin: 03/19/17 08:50 Dose: 26 units Loratadine (Claritin -) 10 mg PO DAILY PRN PRN Reason: ALLERGY Losartan Potassium (Cozaar -) 100 mg PO DAILY [facility] Last Admin: 03/19/17 09:18 Dose: 100 mg Metformin HCl (Glucophage -) 500 mg PO BIDAC [facility] Last Admin: 03/19/17 06:42 Dose: 500 mg Mometasone Furoate (Asmanex 220mcg -) 1 puff IH HS [facility] Last Admin: 03/18/17 21:20 Dose: 1 puff Nystatin (Mycostatin Cream -) 1 applic TP BID [facility] Last Admin: 03/19/17 09:23 Dose: 1 applic Iwuir-7-Sqne Ethyl Esters (Lovaza -) 1 gm PO DAILY [facility] Last Admin: 03/19/17 09:23 Dose: 1 gm Tamsulosin HCl (Flomax -) 0.4 mg PO DAILY@0830 [facility] Last Admin: 03/19/17 08:24 Dose: 0.4 mg - Objective Vital Signs: Vital Signs Temperature 97.9 F 03/19/17 11:00 Pulse Rate 94 H 03/19/17 11:00 Respiratory Rate 20 03/19/17 11:00 Blood Pressure 139/71 03/19/17 11:00 O2 Sat by Pulse Oximetry (%) 98 03/19/17 08:17 Constitutional: Yes: No Distress, Calm Eyes: Yes: Conjunctiva Clear HENT: Yes: Atraumatic Neck: Yes: Supple, Trachea Midline Cardiovascular: Yes: Regular Rate and Rhythm Respiratory: Yes: Regular, CTA Bilaterally Gastrointestinal: Yes: Normal Bowel Sounds, Soft Musculoskeletal: Yes: Other Extremities: Yes: Other Neurological: Yes: Alert, Oriented Psychiatric: Yes: Alert, Oriented Labs: CBC, BMP 03/16/17 07:25 03/16/17 07:25 INR, PTT INR 1.11 (0.82-1.09) 03/14/17 18:57 Assessment/Plan cellulitits of the rt leg prostate ca swelling of the leg dm plan continue abx continue antifungal today last day of iv elevation of leg rest as per primary team
[2017-03-19] MEDS: MOMETASONE FUROATE 220 MCG/IH INHALER IH SCH (22:20)
[2017-03-20] MEDS ORDERED: PIPERACILLIN/TAZOBACTAM 3.375 GM VIAL IVPB ONE ×2 (02:54→10:54)
[2017-03-20] MEDS ORDERED: DEXTROSE 5%-WATER - 50 ML IVPB ONE ×2 (02:54→10:54)
[2017-03-20] MEDS: PIPERACILLIN/TAZOB 3.375 GM 3.375 GM in DEXTROSE 5%-WATER - 50 ML IVPB SCH ×2 (03:00→10:57)
[2017-03-20] MEDS ORDERED: PT OWN MED DRAWER 7, Y5N ONE ×6 (06:24→15:24)
[2017-03-20] MEDS: metFORMIN HCL 500 MG TABLET (FP) PO SCH (06:41)
[2017-03-20] MEDS: GLIMEPIRIDE 2 MG TABLET (FP) PO SCH (06:42)
[2017-03-20] MEDS: INSULIN SLIDING SCALE (NOVOLOG) 1 VIAL SQ SCH ×2 (06:45→11:43)
[2017-03-20] MEDS ORDERED: INSULIN DETEMIR 100 UNITS/ML MDV SQ ONE ×2 (08:11→09:32)
[2017-03-20] MEDS ORDERED: INSULIN (NOVOLOG) ASPART 100 UNITS/ML 10ML VIAL ONE ×3 (08:12→12:25)
[2017-03-20] MEDS: TAMSULOSIN HCL 0.4 MG CAP.ER.24H (FP) PO SCH (08:42)
[2017-03-20] MEDS: INSULIN DETEMIR 100 UNITS/ML MDV SQ SCH (08:45)
[2017-03-20] MEDS: HYDROCHLOROTHIAZIDE 25 MG TABLET (FP) PO SCH (10:56)
[2017-03-20] MEDS: amLODIPine BESYLATE 2.5 MG TABLET (FP) PO SCH (10:56)
[2017-03-20] MEDS: HEPARIN NA (PORCINE) 5,000 UNITS/ML 1ML VIAL SQ SCH (10:56)
[2017-03-20] MEDS: LOSARTAN POTASSIUM 50 MG TABLET (FP) PO SCH (10:56)
[2017-03-20] MEDS: OMEGA-3 ACID ETHYL ESTERS (FATTY-ACIDS) 1 GM CAPSULE (FP) PO SCH (10:57)
[2017-03-20] MEDS: NYSTATIN 100,000 UNIT/GM TOPICAL CREAM 15 GM TUBE TP SCH (11:44)
--- NOTE | 2017-03-20 13:19 | DS ---
Physical Examination Vital Signs: Vital Signs Temperature 98.2 F 03/20/17 06:00 Pulse Rate 82 03/20/17 10:55 Respiratory Rate 20 03/20/17 10:55 Blood Pressure 147/72 03/20/17 10:55 O2 Sat by Pulse Oximetry (%) 98 03/20/17 11:00 Constitutional: Yes: Calm Eyes: Yes: Conjunctiva Clear Cardiovascular: Yes: Regular Rate and Rhythm Respiratory: Yes: Regular Gastrointestinal: Yes: Soft Extremities: No: Erythema Edema: RLE: Trace Integumentary: Yes: Other (tinea pedis between toes being treated; still some edema at site of cellulitis.) Neurological: Yes: Alert, Oriented Labs: CBC, BMP 03/16/17 07:25 03/16/17 07:25 Discharge Summary Reason For Visit: CELLULITIS OF RIGHT ANTERIOR LOWER LEG Current Active Problems Bladder cancer (Acute) Cellulitis of right anterior lower leg (Acute) HTN (hypertension) (Acute) Onychomycosis (Acute) Prostate cancer (Acute) Diabetes Mellitus(Acute) Procedures: Principal: IV antibiotics. BGM Monitoring. Blood C/S Other Procedures: F/U lad and ID MD consultation. Hospital Course: Slow to improve and remained on IV antibiotics until the day of discharge. Condition: Stable - Instructions Diet, Activity, Other Instructions: No added salt or sugar in diet. Continue blood glucose testing like before. Dr. Jonas visit within 2 weeks. Antibiotics: 3 times a day for 5 more days at home Fungus cream between toes for at least 2 more weeks. Referrals: Anup Jonas MD [Primary Care Provider] - Disposition: HOME - Home Medications Comprehensive Discharge Medication List: Ambulatory Orders Amlodipine Besylate [Norvasc -] 2.5 mg PO DAILY 04/15/15 Calcium Carb/Vitamin D3/Vit K1 [Calcium + D Soft Chewable Tab] 1 each PO DAILY 04/15/15 Glimepiride [Amaryl] 2 mg PO BID 04/15/15 Hydrochlorothiazide 50 mg PO DAILY 04/15/15 Insulin (Levemir) [Levemir Flexpen -] 26 units SQ AM 04/15/15 Insulin (Novolog) [Novolog Flexpen -] 6 units SQ HS 04/15/15 Irbesartan [Avapro] 300 mg PO DAILY 10/29/15 Metformin HCl 500 mg PO BID 04/15/15 [place]-3 Fatty Acids [[place]-3] 1,000 mg PO DAILY 04/15/15 Tamsulosin HCl [Flomax -] 0.4 mg PO DAILY 04/15/15 Lovastatin 10 mg PO ASDIR 03/14/17 Potassium Chloride [Klor-Con 10] 20 meq PO DAILY 03/14/17 Acetaminophen [Tylenol .Regular Strength -] 650 mg PO Q6H PRN #0 tablet Amox-Tr/K Cl [Augmentin 500-125mg Tablet -] 1 tab PO TIDCM #15 cap 03/20/17 Loratadine [Claritin -] 10 mg PO DAILY PRN #0 tablet 03/20/17 Mometasone Furoate [Asmanex 220Mcg -] 1 puff IH HS inhaler 03/20/17 Nystatin Cream [Mycostatin Cream -] 1 applic TP BID #45 grams 03/20/17
--- NOTE | 2017-03-20 14:26 | PN ---
Progress Note, Physician History of Present Illness: doing well no issues leg looks much better - Current Medication List Current Medications: Active Medications Acetaminophen (Tylenol -) 650 mg PO Q6H PRN PRN Reason: FEVER OR PAIN Amlodipine Besylate (Norvasc -) 2.5 mg PO DAILY [facility] Last Admin: 03/20/17 10:56 Dose: 2.5 mg Amoxicillin/Clavulanate Potassium (Augmentin - 500mg Tablet) 1 tab PO TIDCM [facility] Glimepiride (Amaryl -) 2 mg PO BIDAC [facility] Last Admin: 03/20/17 06:42 Dose: 2 mg Hydrochlorothiazide (Hctz -) 25 mg PO DAILY [facility] Last Admin: 03/20/17 10:56 Dose: 25 mg Insulin Detemir (Levemir Vial) 26 units SQ DAILY@0800 [facility] Last Admin: 03/20/17 08:45 Dose: 26 units Loratadine (Claritin -) 10 mg PO DAILY PRN PRN Reason: ALLERGY Losartan Potassium (Cozaar -) 100 mg PO DAILY [facility] Last Admin: 03/20/17 10:56 Dose: 100 mg Metformin HCl (Glucophage -) 500 mg PO BIDAC [facility] Last Admin: 03/20/17 06:41 Dose: 500 mg Mometasone Furoate (Asmanex 220mcg -) 1 puff IH HS [facility] Last Admin: 03/19/17 22:20 Dose: 1 puff Nystatin (Mycostatin Cream -) 1 applic TP BID [facility] Last Admin: 03/20/17 11:44 Dose: 1 applic Ttdmx-6-[id number] Ethyl Esters (Lovaza -) 1 gm PO DAILY [facility] Last Admin: 03/20/17 10:57 Dose: 1 gm Tamsulosin HCl (Flomax -) 0.4 mg PO DAILY@0830 [facility] Last Admin: 03/20/17 08:42 Dose: 0.4 mg - Objective Vital Signs: Vital Signs Temperature 98.2 F 03/20/17 06:00 Pulse Rate 82 03/20/17 10:55 Respiratory Rate 20 03/20/17 10:55 Blood Pressure 147/72 03/20/17 10:55 O2 Sat by Pulse Oximetry (%) 98 03/20/17 11:00 Constitutional: Yes: No Distress, Calm Cardiovascular: Yes: Regular Rate and Rhythm Respiratory: Yes: Regular, CTA Bilaterally Gastrointestinal: Yes: Normal Bowel Sounds, Soft Musculoskeletal: Yes: WNL Extremities: Yes: Other Neurological: Yes: Alert, Oriented Psychiatric: Yes: Alert Labs: CBC, BMP 03/16/17 07:25 03/16/17 07:25 INR, PTT INR 1.11 (0.82-1.09) 03/14/17 18:57 Assessment/Plan cellulitits of the rt leg prostate ca swelling of the leg dm plan continue antifungal continue abx augmentin orally
[2017-03-20 14:27] VITALS: BP 132/73; PULSE 79; TEMP 98.9
[2017-03-20] MEDS ORDERED: AMOX TR/POT CLAV 500MG/125MG TABLETS (FP) PO SCH (17:30)
== END 2017-03-20 15:38 | disposition home or self-care (01) | DRG 603 ==
LOC: JER 16:11 → JERBED 19:53 → J5S 03-15 01:57
PROVIDERS: ADMIT Internal Medicine; ATTEND Internal Medicine
DX: L03.115 Cellulitis of right lower limb (principal); E11.65 Type 2 diabetes mellitus with hyperglycemia; I10 Essential (primary) hypertension; J45.909 Unspecified asthma, uncomplicated; E78.5 Hyperlipidemia, unspecified; F41.8 Other specified anxiety disorders; M19.90 Unspecified osteoarthritis, unspecified site; B35.1 Tinea unguium; B35.3 Tinea pedis; Z85.46 Personal history of malignant neoplasm of prostate; Z85.51 Personal history of malignant neoplasm of bladder; Z79.4 Long term (current) use of insulin
CPT/HCPCS: 36415; 71010-TC; 73590-TC-RT; 80048; 80053; 83036; 83605; 85025; 85610; 85651; 87040; 90688; 93005; 93010; 93971-TC; 97116-GP; 97161-GP; 99282-25; G0008; J1644

== ENCOUNTER 2019-07-05 07:47 | Observation (INO) | payer OTHER ==
--- NOTE | 2019-07-05 09:30 | PDOC ---
History of Present Illness - General Chief Complaint: Shortness of Breath Stated Complaint: SOB,FLU LIKE SYMPTOMS Time Seen by Provider: 07/05/19 08:41 - History of Present Illness Initial Comments: 07/05/19 09:18 Mr. Cutler is an 83y/o male with HTN, HLD, DM, and asthma who arrived by EMS and presents with progressive dyspnea and weakness x1 week. He reports dry cough and rhinorrhea began about 1 week ago, was given z-pack by Dr. Jonas , and finished it yesterday. He still has occasional cough as well as wheezing, decreased PO intake. He normally is able to do ADLs independently at home and does not need walker. Over the last week he is unable to much without getting tired and having to go to sleep. He denies headache, dizziness, chest pain, and dysuria. Pt has hx of PNA. He is a never smoker. He reports a family member became ill 2 days prior to him. Pt saw cards recently and had stress test. He does not know of any problems but knows his f/u is in 6 months. Past History - Past Medical History Allergies/Adverse Reactions: Allergies Allergy/AdvReac Type Severity Reaction Status Date / Time No Known Allergies Allergy Verified 07/05/19 08:23 Home Medications: Ambulatory Orders Amlodipine Besylate [Norvasc -] 2.5 mg PO DAILY 04/15/15 Calcium Carb/Vitamin D3/Vit K1 [Calcium + D Soft Chewable Tab] 1 each PO DAILY 04/15/15 Glimepiride [Amaryl] 2 mg PO BID 04/15/15 Hydrochlorothiazide 50 mg PO DAILY 04/15/15 Insulin (Levemir) [Levemir Flexpen -] 26 units SQ AM 04/15/15 Insulin (Novolog) [Novolog Flexpen -] 7 units SQ HS 04/15/15 Irbesartan [Avapro] 300 mg PO DAILY 04/15/15 [place]-3 Fatty Acids [[place]-3] 1,000 mg PO DAILY 04/15/15 Tamsulosin HCl [Flomax -] 0.4 mg PO DAILY 04/15/15 metFORMIN HCL [Metformin HCl] 500 mg PO BID 04/15/15 Potassium Chloride [Klor-Con 10] 20 meq PO DAILY 03/14/17 Acetaminophen [Tylenol .Regular Strength -] 650 mg PO Q6H PRN #0 tablet Aspirin 81 mg PO DAILY 07/05/19 Fexofenadine HCl 180 mg PO PRN PRN 07/05/19 Asthma: Yes Cancer: Yes (Prostate Cancer) Cardiac Disorders: Yes COPD: No Diabetes: Yes HTN: Yes Hypercholesterolemia: Yes - Surgical History Abdominal Surgery: Yes (HERNIA) Orthopedic Surgery: Yes (rotator cuff x 2) - Immunization History Immunization Up to Date: Yes - Psycho Social/Smoking Cessation Hx Smoking History: Never smoked Have you smoked in the past 12 months: No Information on smoking cessation initiated: No Hx Alcohol Use: No Drug/Substance Use Hx: No Substance Use Type: None Review of Systems - Review of Systems Constitutional: No: Chills, Fever Respiratory: Yes: Cough, Shortness of Breath Cardiac (ROS): No: Chest Pain ABD/GI: No: Nausea, Vomiting Neurological: No: Headache, Dizziness *Physical Exam - Vital Signs Last Vital Signs Temp Pulse Resp BP Pulse Ox 97.4 F L 69 18 139/79 99 07/05/19 08:18 07/05/19 08:18 07/05/19 08:18 07/05/19 08:18 07/05/19 08:18 - Physical Exam General Appearance: Yes: Nourished, Appropriately Dressed. No: Apparent Distress HEENT: positive: EOMI, DON Neck: positive: Trachea midline Respiratory/Chest: positive: Lungs Clear. negative: Rapid RR, Crackles, Wheezing Cardiovascular: positive: Regular Rate, Irregular. negative: Murmur Gastrointestinal/Abdominal: positive: Normal Bowel Sounds. negative: Tender Extremity: negative: Pedal Edema Integumentary: positive: Dry, Warm Neurologic: positive: chemical etching processor II-XII NML intact, Fully Oriented, Alert, Normal Mood/ Affect ED Treatment Course - LABORATORY CBC & Chemistry Diagram: 07/05/19 08:44 07/05/19 08:44 - RADIOLOGY Radiology Studies Ordered: Category Date Time Status CXRPORT [CHEST X-RAY PORTABLE*] [RAD] Stat Radiology 07/05/19 09:16 Ordered Medical Decision Making - Medical Decision Making 07/05/19 09:56 Mr. Cutler is an 83y/o male with HTN, HLD, DM, and asthma who arrived by EMS and presents with progressive dyspnea and weakness x1 week. He completed a z- pack yesterday. differential: bronchitis, cardiac arrhythmia, viral illness orders: CBC, CMP, INR, PTT, rapid flu, EKG, troponin, IV fluids, CXR 07/05/19 10:08 CXR negative for acute processes. EKG- PACs, PVCs, new RBBB, QTc 494 07/05/19 10:20 K 3.3, BUN slightly elevated, Mg 1.7, flu negative, trop negative, BG 223 replete K and Mg PO 07/05/19 11:16 Admitted to medicine service for telemetry Discharge - Discharge Information Problems reviewed: Yes Clinical Impression/Diagnosis: Dyspnea Qualifiers: Dyspnea type: unspecified Qualified Code(s): R06.00 - Dyspnea, unspecified - Admission Yes - Follow up/Referral Referrals: Anup Jonas MD [Primary Care Provider] - - Patient Discharge Instructions - Post Discharge Activity
[2019-07-05 09:43] LABS: BASO % 0.5 % (0-2.0); EOS % 1.6 % (0-4.5); HEMATOCRIT 44.2 % (35.4-49); HEMOGLOBIN 15.5 GM/dL (11.7-16.9); LYMPH % 15.3 % (8-40); MCH 30.9 pg (25.7-33.7); MCHC 35.1 g/dl (32.0-35.9); MEAN PLT VOLUME 9.4 fl (7.5-11.1); NEUT % 73.6 % (42.8-82.8); PLATELET COUNT 158 K/MM3 (134-434); RBC 5.03 M/mm3 (4.00-5.60); RDW 13.9 % (11.9-15.9); WHITE BLOOD COUNT 5.8 K/mm3 (4.0-10.0)
[2019-07-05] MEDS ORDERED: SODIUM CHLORIDE 1,000 ML IV SCH ×2 (09:45→10:36)
[2019-07-05 10:12] LABS: ALBUMIN 3.7 g/dl (3.4-5.0); BILIRUBIN,TOTAL 0.8 mg/dL (0.2-1); BLOOD UREA NITROGEN 18.1 mg/dL (7-18); CREATININE 0.9 mg/dL (0.55-1.3); POTASSIUM 3.3 mmol/L (3.5-5.1); TOT PROT 6.8 g/dl (6.4-8.2)
[2019-07-05 10:27] LABS: MAGNESIUM 1.7 mg/dL (1.8-2.4)
--- NOTE | 2019-07-05 10:27 | PDOC ---
Documentation entered by Fernanda Cardenas SCRIBE, acting as scribe for Hernan Main MD. Hernan Main MD: This documentation has been prepared by the Theresa nance Adrianna, SCRIBE, under my direction and personally reviewed by me in its entirety. I confirm that the documentation accurately reflects all work, treatment, procedures, and medical decision making performed by me. Attending Attestation - Resident Resident Name: Sarah Harry - ED Attending Attestation I have performed the following: I have examined & evaluated the patient, The case was reviewed & discussed with the resident, I agree w/resident's findings & plan, Exceptions are as noted - HPI HPI: The patient is an 83 year old male, with a significant PMH of IDDM, HTN, HLD, Prostate Ca (last treated about 5 years ago, stable now), asthma, and prior hospitalization for cellulitis (2 years ago), who presents to the ED for evaluation of dyspnea and generalized weakness for one week. Patient reports having a cold one week ago, with a dry cough and nasal congestion. Patient was given a Z-pack by his PCP, which he completed yesterday. Patient reports generalized weakness for the past 4-5 days, noting he can not perform his daily activities as he feels too tired. He endorses an occasional dry cough, wheezing , and decreased PO intake. Patient reports his son has been sick recently. Patient has had pneumonia in the past. Denies fever, chills, chest pain, nausea, vomit, diarrhea, constipation, dysuria , hematuria. Allergies: NKA, NKDA Surgical History: Abdominal hernia repair, rotator cuff repair x2 Social History: Denies EtOH, tobacco, or illicit drug use PCP: Dr. Anup Jonas - Physicial Exam PE: 07/05/19 10:28 See resident exam - Medical Decision Making 07/05/19 10:28 83 M with weakness and SOB. Will evaluate for respiratory infection, flu vs PNA. Also consider ACS. EKG with TWIs in septal leads. Pt without any evidence of volume overload. No s/s DVT. - Labs, trop - CXR - Flu swab ED Treatment Course - LABORATORY CBC & Chemistry Diagram: 07/05/19 08:44 07/05/19 08:44 - ADDITIONAL ORDERS Additional order review: Laboratory Results 07/05/19 07/05/19 08:44 08:44 Sodium 135 L Potassium 3.3 L Chloride 100 Carbon Dioxide 26 Anion Gap 9 BUN 18.1 H Creatinine 0.9 Est GFR (CKD-EPI)AfAm 89.95 Est GFR (CKD-EPI)NonAf 77.61 Random Glucose 223 H Calcium 9.0 Total Bilirubin 0.8 AST 23 ALT 30 Alkaline Phosphatase 103 Creatine Kinase 112 Troponin I < 0.02 Total Protein 6.8 Albumin 3.7 07/05/19 08:44 RBC 5.03 MCV 88.0 MCHC 35.1 RDW 13.9 MPV 9.4 Neutrophils % 73.6 Lymphocytes % 15.3 Monocytes % 9.0 Eosinophils % 1.6 Basophils % 0.5 - RADIOLOGY Radiograph Interpretation: EXAM#: TYPE/EXAM: RESULT: [id number] RAD/CHEST X-RAY PORTABLE* Portable chest: Progressive dyspnea Impression: No acute chest pathology. No significant change since 03/14/2017. Reported By: Arnol Edmonds MD 07/05/19 10:03
[2019-07-05] MEDS ORDERED: MAGNESIUM OXIDE 400 MG TABLET (FP) PO ONE (10:43)
[2019-07-05] MEDS ORDERED: POTASSIUM CHLORIDE TABS 20 MEQ TABLET.ER (FP) PO ONE ×2 (10:43→11:01)
[2019-07-05] MEDS ORDERED: MAGNESIUM OXIDE 400 MG TABLET (FP) ONE (11:02)
[2019-07-05] MEDS ORDERED: ALBUTEROL SO4 0.083% IH SOL 2.5 MG/3 ML VIAL.NEB. NEB PRN (11:42)
[2019-07-05] MEDS ORDERED: HYDROCHLOROTHIAZIDE 25 MG TABLET (FP) PO SCH (12:00)
[2019-07-05] MEDS ORDERED: RED YEAST RICE PO SCH (12:00)
[2019-07-05] MEDS: SODIUM CHLORIDE 1,000 ML IV SCH (12:00)
--- NOTE | 2019-07-05 12:28 | HP ---
CHIEF COMPLAINT: dyspnea, weakness PCP: Sumi HISTORY OF PRESENT ILLNESS: Patient is a 83 y/o male with a history of HTN, HLD, DM, and asthma who presented for dyspnea and weakness. Patient reports he has had these feelings since Sunday. His PCP gave him a Zpak a week ago and he took the last dose last night. He reports he is not feeling better. He denies fever, cough, nausea, vomiting, or productive sputum. He reports muscle ache in his shoulder but says it is not new. His son has been feeling the same recently. He has seen his mental health therapist Dr. Zendejas within the past year without any change. Patient is compliant with his medications, he is able to walk without any aid. Shortness of breath is not worth with exertion or lying down ER course was notable for: (1) IV NS (2) (3) Recent Travel: denies PAST MEDICAL HISTORY: HTN, HLD, DM, and asthma PAST SURGICAL HISTORY: hernia Social History: Smoking: never Alcohol: denies Drugs: denies Allergies No Known Allergies Allergy (Verified 07/05/19 08:23) HOME MEDICATIONS: Home Medications Medication Instructions Recorded Amlodipine Besylate [Norvasc -] 2.5 mg PO DAILY 04/15/15 Calcium Carb/Vitamin D3/Vit K1 1 each PO DAILY 04/15/15 [Calcium + D Soft Chewable Tab] Glimepiride [Amaryl] 2 mg PO BID 04/15/15 Hydrochlorothiazide 50 mg PO DAILY 04/15/15 Insulin (Levemir) [Levemir Flexpen 26 units SQ AM 04/15/15 -] Irbesartan [Avapro] 300 mg PO DAILY 04/15/15 [place]-3 Fatty Acids [[place]-3] 1,000 mg PO DAILY 04/15/15 Tamsulosin HCl [Flomax -] 0.4 mg PO DAILY 04/15/15 metFORMIN HCL [Metformin HCl] 500 mg PO BID 04/15/15 Potassium Chloride [Klor-Con 10] 20 meq PO DAILY 03/14/17 Aspirin 81 mg PO DAILY 07/05/19 Fexofenadine HCl 180 mg PO PRN PRN 07/05/19 Insulin Lispro [Humalog] 7 unit SQ HS 07/05/19 Red Yeast Rice 240 mg PO DAILY 07/05/19 REVIEW OF SYSTEMS CONSTITUTIONAL: Absent: fever, chills, diaphoresis, generalized weakness, malaise, loss of appetite, weight change HEENT: Absent: rhinorrhea, nasal congestion, throat pain, throat swelling, difficulty swallowing, mouth swelling, ear pain, eye pain, visual changes CARDIOVASCULAR: Absent: chest pain, syncope, palpitations, irregular heart rate, lightheadedness , peripheral edema RESPIRATORY: dyspnea Absent: cough, shortness of breath, , orthopnea, wheezing, stridor, hemoptysis GASTROINTESTINAL: Absent: abdominal pain, abdominal distension, nausea, vomiting, diarrhea, constipation, melena, hematochezia GENITOURINARY: Absent: dysuria, frequency, urgency, hesitancy, hematuria, flank pain, genital pain MUSCULOSKELETAL: Absent: myalgia, arthralgia, joint swelling, back pain, neck pain SKIN: Absent: rash, itching, pallor HEMATOLOGIC/IMMUNOLOGIC: Absent: easy bleeding, easy bruising, lymphadenopathy, frequent infections ENDOCRINE: Absent: unexplained weight gain, unexplained weight loss, heat intolerance, cold intolerance NEUROLOGIC: Absent: headache, focal weakness or paresthesias, dizziness, unsteady gait, seizure, mental status changes, bladder or bowel incontinence PSYCHIATRIC: Absent: anxiety, depression, suicidal or homicidal ideation, hallucinations. PHYSICAL EXAMINATION Vital Signs - 24 hr 07/05/19 07/05/19 07/05/19 07:49 08:18 10:15 Temperature 97.4 F L Pulse Rate 69 Pulse Rate [ 102 H Apical] Respiratory 18 18 Rate Blood Pressure 139/79 Blood Pressure [Right Arm] O2 Sat by Pulse 100 99 96 Oximetry (%) 07/05/19 11:07 Temperature Pulse Rate Pulse Rate [ 96 H Apical] Respiratory 18 Rate Blood Pressure Blood Pressure 178/73 H [Right Arm] O2 Sat by Pulse 98 Oximetry (%) GENERAL: Awake, alert, and fully oriented, in no acute distress. obese HEAD: Normal with no signs of trauma. EYES: Pupils equal, round and reactive to light, extraocular movements intact EARS, NOSE, THROAT: Moist mucous membranes. LUNGS: Breath sounds equal, clear to auscultation bilaterally. No wheezes, and no crackles. No accessory muscle use. HEART: Regular rate and rhythm, normal S1 and S2 ABDOMEN: Soft, nontender, not distended, normoactive bowel sounds, MUSCULOSKELETAL: Normal range of motion at all joints. LOWER EXTREMITIES: 2+ pulses, warm, well-perfused. No calf tenderness. No peripheral edema. SKIN: Warm, dry, normal turgor, no rashes or lesions noted, normal capillary refill. CBC, BMP 07/05/19 08:44 07/05/19 08:44 ASSESSMENT/PLAN: Patient is a 83 y/o male with a history of HTN, HLD, DM, and asthma who is admitted for acute viral syndrome. #Acute viral syndrome with dyspnea - positive sick contact, symptomatic, recently finished zpak - CXR clear for any acute process - flu negative, repeat ordered as it is low sensitivity - f/u ABG - f/u RSV, f/u ESR - albuterol nebs q4h as needed #RBB - EKG RBB, seen on EKG in 2015 - patient without chest pain, follows with Cristiana as an outpatient #HTN -continue amlodipine, irbesartan - hold HCTZ with fluids #DM - continue SS -continue levemir 26 - BGM TID #DVT ppx - heparin TID #FEN - continue to monitor electrolytes, K and Mg repleted - continue klor-con Dispo: continue to monitor as obs OBS, f/u PT Visit type - Emergency Visit Emergency Visit: Yes ED Registration Date: 07/05/19 Care time: The patient presented to the Emergency Department on the above date and was hospitalized for further evaluation of their emergent condition. - New Patient This patient is new to me today: Yes Date on this admission: 07/05/19 - Critical Care Critical Care patient: No ATTENDING PHYSICIAN STATEMENT I saw and evaluated the patient. I reviewed the resident's note and discussed the case with the resident. I agree with the resident's findings and plan as documented. SUBJECTIVE: OBJECTIVE: ASSESSMENT AND PLAN:
[2019-07-05] MEDS ORDERED: LORATADINE 10 MG TABLET PO PRN (12:31)
[2019-07-05 12:56] LABS: ALLENS TEST POSITIVE; ARTERIAL BLD GAS O2 SATURATION 97.7 % (95-98); ARTERIAL BLOOD GAS BASE EXCESS 1.1 meq/l (-2-2); ARTERIAL BLOOD GAS PCO2 28.9 mmHg (35-45); ARTERIAL BLOOD GAS PO2 97.5 mmHg (80-100)
--- NOTE | 2019-07-05 13:14 | EKG ---
Test Reason : Blood Pressure : / mmHG Vent. Rate : 078 BPM Atrial Rate : 078 BPM P-R Int : 192 ms QRS Dur : 140 ms QT Int : 434 ms P-R-T Axes : 047 -80 036 degrees QTc Int : 494 ms SINUS RHYTHM WITH OCCASIONAL PREMATURE VENTRICULAR COMPLEXES AND PREMATURE ATRIAL COMPLEXES LEFT AXIS DEVIATION RIGHT BUNDLE BRANCH BLOCK ABNORMAL ECG WHEN COMPARED WITH ECG OF 15-MAR-2017 10:10, PREMATURE VENTRICULAR COMPLEXES ARE NOW PRESENT PREMATURE ATRIAL COMPLEXES ARE NOW PRESENT RIGHT BUNDLE BRANCH BLOCK IS NOW PRESENT Confirmed by MAGAN SEYMOUR MD ([id number]) on 07/05/2019 1:14:13 PM Referred By: Confirmed By:MAGAN SEYMOUR MD
[2019-07-05] MEDS: LOSARTAN POTASSIUM 50 MG TABLET (FP) PO SCH (13:48)
[2019-07-05] MEDS: ASPIRIN 81 MG CHEWABLE TABLETS PO SCH (13:48)
[2019-07-05] MEDS: TAMSULOSIN HCL 0.4 MG CAP PO SCH (13:49)
[2019-07-05] MEDS: CALCIUM 250MG/VIT-D 125 UNITS 1 COMBO TABLET PO SCH (13:51)
--- NOTE | 2019-07-05 13:57 | PN ---
Teaching Attending Note Name of Resident: Joseline Salinas ATTENDING PHYSICIAN STATEMENT I saw and evaluated the patient. I reviewed the resident's note and discussed the case with the resident. I agree with the resident's findings and plan as documented. SUBJECTIVE: Feeling less SOB. Mild cough,no sputum/. No CP/palpitations/ hemoptysis. No fevers/chills. No nausea/vomiting. OBJECTIVE: Afebrle, hemodynamically Stable. Last Vital Signs Temp Pulse Resp BP Pulse Ox 97.3 F L 85 18 169/85 99 07/05/19 13:13 07/05/19 13:13 07/05/19 13:13 07/05/19 13:13 07/05/19 11:55 HEENT- Atraumatic, Normocephalic. Heart - S1, S2, RRR Lungs - clear to auscultation Abdomen - soft, non-tender. Bowel Sound normal. Extremities - trace edema, no calf tenderness. Neuro - AAO x 3. Tone/Power normal all extremities. Laboratory Results - last 24 hr 07/05/19 07/05/19 07/05/19 08:44 08:44 08:44 WBC 5.8 RBC 5.03 Hgb 15.5 Hct 44.2 MCV 88.0 MCH 30.9 MCHC 35.1 RDW 13.9 Plt Count 158 MPV 9.4 Absolute Neuts (auto) 4.2 Neutrophils % 73.6 Lymphocytes % 15.3 Monocytes % 9.0 Eosinophils % 1.6 Basophils % 0.5 Nucleated RBC % 0 ESR Anticoagulation Therapy Puncture Site ABG pH ABG pCO2 at Pt Temp ABG pO2 at Pt Temp ABG HCO3 ABG O2 Sat (Measured) ABG O2 Content ABG Base Excess Eddie Test O2 Delivery Device Oxygen Flow Rate Vent Mode Vent Rate Mechanical Rate Pressure Support Vent Sodium 135 L Potassium 3.3 L Chloride 100 Carbon Dioxide 26 Anion Gap 9 BUN 18.1 H Creatinine 0.9 Est GFR (CKD-EPI)AfAm 89.95 Est GFR (CKD-EPI)NonAf 77.61 Random Glucose 223 H Calcium 9.0 Magnesium 1.7 L Total Bilirubin 0.8 AST 23 ALT 30 Alkaline Phosphatase 103 Creatine Kinase 112 Troponin I < 0.02 Total Protein 6.8 Albumin 3.7 Influenza A (Rapid) Influenza B (Rapid) 07/05/19 07/05/19 07/05/19 08:44 09:51 12:29 WBC RBC Hgb Hct MCV MCH MCHC RDW Plt Count MPV Absolute Neuts (auto) Neutrophils % Lymphocytes % Monocytes % Eosinophils % Basophils % Nucleated RBC % ESR 12 Anticoagulation Therapy No Result Required. Puncture Site Right radial ABG pH 7.50 H ABG pCO2 at Pt Temp 28.9 L ABG pO2 at Pt Temp 97.5 ABG HCO3 22.5 ABG O2 Sat (Measured) 97.7 ABG O2 Content 22.2 ABG Base Excess 1.1 Eddie Test Positive O2 Delivery Device No Result Required. Oxygen Flow Rate Room air Vent Mode No Result Required. Vent Rate No Result Required. Mechanical Rate No Result Required. Pressure Support Vent No Result Required. Sodium Potassium Chloride Carbon Dioxide Anion Gap BUN Creatinine Est GFR (CKD-EPI)AfAm Est GFR (CKD-EPI)NonAf Random Glucose Calcium Magnesium Total Bilirubin AST ALT Alkaline Phosphatase Creatine Kinase Troponin I Total Protein Albumin Influenza A (Rapid) Negative Influenza B (Rapid) Negative Current Medications Generic Name Dose Route Start Last Admin Trade Name Freq PRN Reason Stop Dose Admin Albuterol Sulfate 1 amp 07/05/19 11:42 Ventolin 0.083% Nebulizer Soln - NEB Q4H PRN SHORT OF BREATH/WHEEZING Amlodipine Besylate 2.5 mg 07/05/19 12:00 Norvasc - PO DAILY [facility] Aspirin 81 mg 07/05/19 12:00 Asa - PO DAILY [facility] Calcium/Vitamin D 1 tab 07/05/19 12:00 Oscal 250 Mg+D - PO DAILY [facility] Heparin Sodium (Porcine) 5,000 unit 07/05/19 14:00 Heparin - SQ TID NATHALIE Sodium Chloride 1,000 mls @ 42 mls/hr 07/05/19 11:45 07/05/19 12:00 Normal Saline - IV 42 mls/hr ASDIR NATHALIE Administration Insulin Aspart 1 vial 07/05/19 16:30 Novolog Vial Sliding Scale - SQ ACHS [facility] Protocol Insulin Detemir 26 units 07/06/19 07:00 Levemir Vial SQ AM NATHALIE Loratadine 10 mg 07/05/19 12:31 Claritin - PO DAILY PRN ALLERGIES Losartan Potassium 100 mg 07/05/19 12:00 Cozaar - PO DAILY [facility] Wootg-9-Gbol Ethyl Esters 1,000 gm 07/05/19 12:00 Lovaza - PO DAILY NATHALIE Potassium Chloride 20 meq 07/06/19 10:00 K-Dur - PO DAILY [facility] Tamsulosin HCl 0.4 mg 07/05/19 12:00 Flomax - PO DAILY@0830 [facility] Home Medications Medication Instructions Recorded Amlodipine Besylate [Norvasc -] 2.5 mg PO DAILY 04/15/15 Calcium Carb/Vitamin D3/Vit K1 1 each PO DAILY 04/15/15 [Calcium + D Soft Chewable Tab] Glimepiride [Amaryl] 2 mg PO BID 04/15/15 Hydrochlorothiazide 50 mg PO DAILY 04/15/15 Insulin (Levemir) [Levemir Flexpen 26 units SQ AM 04/15/15 -] Irbesartan [Avapro] 300 mg PO DAILY 04/15/15 [place]-3 Fatty Acids [[place]-3] 1,000 mg PO DAILY 04/15/15 Tamsulosin HCl [Flomax -] 0.4 mg PO DAILY 04/15/15 metFORMIN HCL [Metformin HCl] 500 mg PO BID 04/15/15 Potassium Chloride [Klor-Con 10] 20 meq PO DAILY 03/14/17 Aspirin 81 mg PO DAILY 07/05/19 Fexofenadine HCl 180 mg PO PRN PRN 07/05/19 Insulin Lispro [Humalog] 7 unit SQ HS 07/05/19 Red Yeast Rice 240 mg PO DAILY 07/05/19 ASSESSMENT AND PLAN: 83 year old male with HTN, HLD, DM 2, BPH, Asthma presets with generalized weakness and dyspnea, recently completed course of Azithromycin given by his PCP. No fever/chills. 1. Acute Viral Syndrome with Myalgia/Lethargy Flu negative. CXR - no infiltrate. ABG - no hypercapnea/hypoxia Completed Zpak as out-patient. Albuterol PRN Gentle hydration PT 2. HTN - continue Norvasc, Irbesartan. HCTZ held in favor of gentle IV hydration. 3. DM 2 - Maintain on Levemir, Novolog sliding scale. Glimepiride, Metformin held. 4. Hypokalemia/Hypomagnesemia - repleted. 5. BPH - continue Flomax. DVT Px - Heparin SQ.
[2019-07-05 14:00] LABS: INR 1.08 (0.83-1.09); PROTHROMBIN TIME (PATIENT) 12.8 SEC (9.7-13.0)
[2019-07-05] MEDS: OMEGA-3 ACID ETHYL ESTERS (FATTY-ACIDS) 1 GM CAPSULE (FP) PO SCH (14:01)
[2019-07-05] MEDS ORDERED: MAGNESIUM SULF 50% (8.12 MEQ/2 ML-1 GM VIAL) IVPB ONE (14:45)
[2019-07-05] MEDS: HEPARIN NA (PORCINE) 5,000 UNITS/ML 1ML VIAL SQ SCH ×2 (16:51→22:31)
[2019-07-05] MEDS: amLODIPine BESYLATE 2.5 MG TABLET (FP) PO SCH (16:52)
[2019-07-05] MEDS: INSULIN SLIDING SCALE (NOVOLOG) 1 VIAL SQ SCH ×2 (16:53→22:31)
[2019-07-05 18:21] VITALS: BMI 29.0
[2019-07-06] MEDS: HEPARIN NA (PORCINE) 5,000 UNITS/ML 1ML VIAL SQ SCH ×2 (06:16→14:00)
[2019-07-06] MEDS: INSULIN SLIDING SCALE (NOVOLOG) 1 VIAL SQ SCH ×2 (06:16→11:07)
[2019-07-06] MEDS ORDERED: INSULIN (LEVEMIR) 100 UNITS/ML UNITS SQ SCH (07:00)
[2019-07-06] MEDS: SODIUM CHLORIDE 1,000 ML IV SCH ×2 (09:40→16:31)
[2019-07-06] MEDS: amLODIPine BESYLATE 2.5 MG TABLET (FP) PO SCH (09:41)
[2019-07-06] MEDS: ASPIRIN 81 MG CHEWABLE TABLETS PO SCH (09:41)
[2019-07-06] MEDS: CALCIUM 250MG/VIT-D 125 UNITS 1 COMBO TABLET PO SCH (09:42)
[2019-07-06] MEDS: TAMSULOSIN HCL 0.4 MG CAP PO SCH (09:42)
[2019-07-06] MEDS: LOSARTAN POTASSIUM 50 MG TABLET (FP) PO SCH (09:42)
[2019-07-06 09:47] LABS: HEMATOCRIT 42.4 % (35.4-49); HEMOGLOBIN 14.7 GM/dL (11.7-16.9); MCH 30.8 pg (25.7-33.7); MCHC 34.6 g/dl (32.0-35.9); MEAN CELL VOLUME 89.1 fl (80-96); PLATELET COUNT 163 K/MM3 (134-434); RBC 4.76 M/mm3 (4.00-5.60); RDW 13.6 % (11.9-15.9); WHITE BLOOD COUNT 4.9 K/mm3 (4.0-10.0)
[2019-07-06] MEDS ORDERED: POTASSIUM CHLORIDE TABS 20 MEQ TABLET.ER (FP) PO SCH (10:00)
[2019-07-06 10:19] LABS: CALCIUM 8.7 mg/dL (8.5-10.1); CREATININE 0.8 mg/dL (0.55-1.3); MAGNESIUM 2.1 mg/dL (1.8-2.4); PHOSPHOROUS 2.8 mg/dL (2.5-4.9); POTASSIUM 3.6 mmol/L (3.5-5.1)
[2019-07-06] MEDS: OMEGA-3 ACID ETHYL ESTERS (FATTY-ACIDS) 1 GM CAPSULE (FP) PO SCH ×2 (13:00→17:25)
[2019-07-06] MEDS ORDERED: PT OWN MED DRAWER 7, Y5N ONE (15:24)
--- NOTE | 2019-07-06 16:18 | DS ---
Physical Exam: SUBJECTIVE: Feeling much better - no SOB/cough/sputum. No CP/palpitations/ hemoptysis. No fevers/chills. No nausea/vomiting. OBJECTIVE: Afebrle, hemodynamically Stable. Last Vital Signs Temp Pulse Resp BP Pulse Ox 98 F 85 20 134/69 98 07/06/19 10:10 07/06/19 10:10 07/06/19 10:10 07/06/19 10:10 07/06/19 10:07 HEENT- Atraumatic, Normocephalic. Heart - S1, S2, RRR Lungs - clear to auscultation Abdomen - soft, non-tender. Bowel Sound normal. Extremities - trace edema, no calf tenderness. Neuro - AAO x 3. Tone/Power normal all extremities. Laboratory Results - last 24 hr 07/05/19 07/05/19 07/05/19 16:52 18:30 18:30 WBC RBC Hgb Hct MCV MCH MCHC RDW Plt Count MPV Sodium Potassium Chloride Carbon Dioxide Anion Gap BUN Creatinine Est GFR (CKD-EPI)AfAm Est GFR (CKD-EPI)NonAf POC Glucometer 142 Random Glucose Calcium Phosphorus Magnesium Influenza A (Rapid) Negative Influenza B (Rapid) Negative RSV Rapid Negative 07/05/19 07/06/19 07/06/19 22:26 06:12 08:50 WBC 4.9 RBC 4.76 Hgb 14.7 Hct 42.4 MCV 89.1 MCH 30.8 MCHC 34.6 RDW 13.6 Plt Count 163 MPV 9.0 Sodium Potassium Chloride Carbon Dioxide Anion Gap BUN Creatinine Est GFR (CKD-EPI)AfAm Est GFR (CKD-EPI)NonAf POC Glucometer 201 126 Random Glucose Calcium Phosphorus Magnesium Influenza A (Rapid) Influenza B (Rapid) RSV Rapid 07/06/19 07/06/19 08:50 11:06 WBC RBC Hgb Hct MCV MCH MCHC RDW Plt Count MPV Sodium 138 Potassium 3.6 Chloride 104 Carbon Dioxide 28 Anion Gap 6 L BUN 15.0 Creatinine 0.8 Est GFR (CKD-EPI)AfAm 94.41 Est GFR (CKD-EPI)NonAf 81.46 POC Glucometer 242 Random Glucose 140 H Calcium 8.7 Phosphorus 2.8 Magnesium 2.1 Influenza A (Rapid) Influenza B (Rapid) RSV Rapid Discharge Medications Medication Instructions Recorded Amlodipine Besylate [Norvasc -] 2.5 mg PO DAILY 04/15/15 Calcium Carb/Vitamin D3/Vit K1 1 each PO DAILY 04/15/15 [Calcium + D Soft Chewable Tab] Glimepiride [Amaryl] 2 mg PO BID 04/15/15 Hydrochlorothiazide 50 mg PO DAILY 04/15/15 Insulin (Levemir) [Levemir Flexpen 26 units SQ AM 04/15/15 -] Irbesartan [Avapro] 300 mg PO DAILY 04/15/15 Gloucester-3 Fatty Acids [Gloucester-3] 1,000 mg PO DAILY 04/15/15 Tamsulosin HCl [Flomax -] 0.4 mg PO DAILY 04/15/15 metFORMIN HCL [Metformin HCl] 500 mg PO BID 04/15/15 Potassium Chloride [Klor-Con 10] 20 meq PO DAILY 03/14/17 Aspirin 81 mg PO DAILY 07/05/19 Fexofenadine HCl 180 mg PO PRN PRN 07/05/19 Insulin Lispro [Humalog] 7 unit SQ HS 07/05/19 Red Yeast Rice 240 mg PO DAILY 07/05/19 Date of Admission:07/05/19 Date of Discharge: 07/06/19 Minutes to complete discharge: 45 Discharge Summary Problems reviewed: Yes Reason For Visit: DYSPNEA Hospital Course: 83 year old male with HTN, HLD, DM 2, BPH, Asthma presets with generalized weakness and dyspnea, recently completed course of Azithromycin given by his PCP. No fever/chills. 1. Acute Viral Syndrome with Myalgia/Lethargy - much improved. Flu negative. CXR - no infiltrate. ABG - no hypercapnea/hypoxia Completed Zpak as out-patient. Albuterol PRN Responded well to gentle hydration. Afebrile, Hemodynamically stable, tolerating oral intake, mobilizing well. Medically stable for discharge home with PCP follow up. 2. HTN - esume HCTZ, Norvasc, Irbesartan. 3. DM 2 - resume Glimepiride, Metformin, Levemir on discharge. 4. Hypokalemia/Hypomagnesemia - repleted. 5. BPH - continue Flomax. Medically optimized for discharge with PCP follow up. Condition: Good - Instructions Diet, Activity, Other Instructions: You presented with generalized weakness, some shortness of breath, cough, recently completed course of Azithromycin given by your PCP. You were found to be slightly dehydrated, likely secondary to acute viral syndrome with lethargy and myalgias, now resolved. You were found to be negative for flu. No need for further antibiotic therapy. [facility] for further management of your chronic medical issues including Hypertension and Diabetes. Referrals: Anup Jonas MD [Primary Care Provider] - Disposition: HOME - Home Medications Comprehensive Discharge Medication List: Ambulatory Orders Amlodipine Besylate [Norvasc -] 2.5 mg PO DAILY 04/15/15 Calcium Carb/Vitamin D3/Vit K1 [Calcium + D Soft Chewable Tab] 1 each PO DAILY 04/15/15 Glimepiride [Amaryl] 2 mg PO BID 04/15/15 Hydrochlorothiazide 50 mg PO DAILY 04/15/15 Insulin (Levemir) [Levemir Flexpen -] 26 units SQ AM 04/15/15 Irbesartan [Avapro] 300 mg PO DAILY 04/15/15 Gloucester-3 Fatty Acids [Gloucester-3] 1,000 mg PO DAILY 04/15/15 Tamsulosin HCl [Flomax -] 0.4 mg PO DAILY 04/15/15 metFORMIN HCL [Metformin HCl] 500 mg PO BID 04/15/15 Potassium Chloride [Klor-Con 10] 20 meq PO DAILY 03/14/17 Aspirin 81 mg PO DAILY 07/05/19 Fexofenadine HCl 180 mg PO PRN PRN 07/05/19 Insulin Lispro [Humalog] 7 unit SQ HS 07/05/19 Red Yeast Rice 240 mg PO DAILY 07/05/19 This patient is new to me today: No Emergency Visit: Yes ED Registration Date: 07/05/19 Care time: The patient presented to the Emergency Department on the above date and was hospitalized for further evaluation of their emergent condition. Critical Care patient: No - Discharge Referral Referred to [facility] No
[2019-07-06 17:47] VITALS: BP 153/77; PULSE 68; TEMP 98
== END 2019-07-06 17:47 | disposition home or self-care (01) ==
LOC: JER 07:47 → UNDOADMOB 11:14 → INTOOBSV 11:14 → JERBED 11:14 → J8W 13:03
PROC: 3E033GC Introduction of Other Therapeutic Substance into Peripheral Vein, Percutaneous Approach (ICD-10-PCS; principal; 2019-07-05)
PROC: 3E0337Z Introduction of Electrolytic and Water Balance Substance into Peripheral Vein, Percutaneous Approach (ICD-10-PCS; 2019-07-05)
PROC: 3E013VG Introduction of Insulin into Subcutaneous Tissue, Percutaneous Approach (ICD-10-PCS; 2019-07-05)
PROC: 3E013GC Introduction of Other Therapeutic Substance into Subcutaneous Tissue, Percutaneous Approach (ICD-10-PCS; 2019-07-05)
DX: B34.9 Viral infection, unspecified (principal); R06.00 Dyspnea, unspecified; M79.10 Myalgia, unspecified site; R53.83 Other fatigue; I45.10 Unspecified right bundle-branch block; I10 Essential (primary) hypertension; E78.5 Hyperlipidemia, unspecified; E11.9 Type 2 diabetes mellitus without complications; N40.0 Benign prostatic hyperplasia without lower urinary tract symptoms; J45.909 Unspecified asthma, uncomplicated; E87.6 Hypokalemia; Z85.46 Personal history of malignant neoplasm of prostate; Z79.82 Long term (current) use of aspirin; Z79.84 Long term (current) use of oral hypoglycemic drugs; Z79.4 Long term (current) use of insulin
CPT/HCPCS: 36415; 36600; 71045-TC-FY; 80048; 80053; 82550; 82803; 82962; 83735; 84100; 84484; 85025; 85027; 85610; 85651; 85730; 87804; 87807; 93005; 93010; 96372; 96374; 97116-GP; 97161-GP; 99285-25; G0378; J1644; J7030

== ENCOUNTER 2019-07-26 06:24 | Emergency (ER) | payer OTHER ==
[2019-07-26 06:41] VITALS: BMI 31.0
--- NOTE | 2019-07-26 07:11 | PDOC ---
History of Present Illness - General Chief Complaint: Shortness of Breath Stated Complaint: SOB Time Seen by Provider: 07/26/19 07:09 History Source: Patient, Old Records Exam Limitations: No Limitations - History of Present Illness Initial Comments: 07/26/19 07:10 83y M with PMH of IDDM, HTN, HLD, Prostate Ca (last treated about 5 years ago, stable now), Asthma presenting to ED with complaints of cough x3 weeks. Cough is dry, worse at night when he is laying down. He was in the hospital 3 weeks ago for SOB, was found to have low Mg and low K which was repleted. Pt denies chest pain, fever, chills, SOB, leg swelling, headaches, sore throat, back pain, weight gain, recent travel. Endorses congestion. PMD: Sumi PMH: see hpi PSH: Meds: see med rec Allergies: nkda Past History - Past Medical History Allergies/Adverse Reactions: Allergies Allergy/AdvReac Type Severity Reaction Status Date / Time No Known Allergies Allergy Verified 07/26/19 06:40 Home Medications: Ambulatory Orders Amlodipine Besylate [Norvasc -] 2.5 mg PO DAILY 04/15/15 Calcium Carb/Vitamin D3/Vit K1 [Calcium + D Soft Chewable Tab] 1 each PO DAILY 04/15/15 Glimepiride [Amaryl] 2 mg PO BID 04/15/15 Hydrochlorothiazide 50 mg PO DAILY 04/15/15 Insulin (Levemir) [Levemir Flexpen -] 26 units SQ AM 04/15/15 Irbesartan [Avapro] 300 mg PO DAILY 04/15/15 Crocker-3 Fatty Acids [Crocker-3] 1,000 mg PO DAILY 04/15/15 Tamsulosin HCl [Flomax -] 0.4 mg PO DAILY 04/15/15 metFORMIN HCL [Metformin HCl] 500 mg PO BID 04/15/15 Potassium Chloride [Klor-Con 10] 20 meq PO DAILY 03/14/17 Aspirin 81 mg PO DAILY 07/05/19 Fexofenadine HCl 180 mg PO PRN PRN 07/05/19 Insulin Lispro [Humalog] 7 unit SQ HS 07/05/19 Red Yeast Rice 240 mg PO DAILY 07/05/19 Loratadine [Claritin -] 10 mg PO DAILY #30 tablet 07/26/19 Asthma: Yes Cancer: Yes (Prostate Cancer) Cardiac Disorders: Yes COPD: No Diabetes: Yes HTN: Yes Hypercholesterolemia: Yes - Surgical History Abdominal Surgery: Yes (HERNIA) Orthopedic Surgery: Yes (rotator cuff x 2) - Immunization History Immunization Up to Date: Yes - Psycho Social/Smoking Cessation Hx Smoking History: Never smoked Have you smoked in the past 12 months: No Information on smoking cessation initiated: No Hx Alcohol Use: No Drug/Substance Use Hx: No Substance Use Type: None Hx Substance Use Treatment: No Review of Systems - Review of Systems Able to Perform ROS?: Yes Constitutional: No: Symptoms Reported HEENTM: Yes: Nose Congestion Respiratory: Yes: Cough. No: Shortness of Breath, Wheezing, Productive cough Cardiac (ROS): No: Symptoms Reported ABD/GI: No: Symptoms Reported : No: Symptoms Reported Musculoskeletal: No: Symptoms Reported Integumentary: No: Symptoms Reported Neurological: No: Symptoms reported *Physical Exam - Vital Signs Last Vital Signs Temp Pulse Resp BP Pulse Ox 98.7 F 83 20 144/57 L 99 07/26/19 06:38 07/26/19 06:38 07/26/19 06:38 07/26/19 06:38 07/26/19 06:38 - Physical Exam General Appearance: Yes: Nourished, Appropriately Dressed. No: Apparent Distress HEENT: positive: EOMI, DON, Pharynx Normal, Nasal Congestion. negative: Pharyngeal Erythema Neck: positive: Trachea midline, Supple. negative: Stridor, Lymphadenopathy (R) , Lymphadenopathy (L) Respiratory/Chest: positive: Lungs Clear, Normal Breath Sounds, Rhonchi, Wheezing. negative: Respiratory Distress, Accessory Muscle Use, Labored Respiration, Rapid RR, Decreased Breath Sounds, Crackles, Rales, Stridor Cardiovascular: positive: Regular Rhythm, Regular Rate, S1, S2. negative: Edema , JVD, Murmur Gastrointestinal/Abdominal: positive: Normal Bowel Sounds, Soft. negative: Tender Extremity: positive: Normal Capillary Refill. negative: Pedal Edema, Swelling, Calf Tenderness Integumentary: positive: Normal Color, Dry, Warm Neurologic: positive: cardiology clinical nurse specialist II-XII NML intact, Fully Oriented, Alert, Normal Mood/ Affect, Normal Response, Motor Strength 5/5 ED Treatment Course - LABORATORY CBC & Chemistry Diagram: 07/26/19 07:51 07/26/19 07:51 Medical Decision Making - Medical Decision Making 07/26/19 09:48 83M with PMH of IDDM, HTN, Asthma presenting to ED with complaints of 3 weeks of cough ddx includes post nasal drip, viral uri, chf, asthma, acs, pna, pe vitals wnl, saturating well on RA. no clinical signs of fluid overload, low suspicion for CHF. pt not having active chest pain and has had symptoms for 3 weeks. low suspicion for acs, pe (given normal vitals, no clinical signs of dvt) will order cbc, cmp, trop, ekg, cxr will give flonase, duoneb pt feeling better ekg shows RBBB pattern with occasional pvc, L axis deviation, no signs of acute ischemia. negative trop, low Mg (will replete) wbc 14 however pt is afebrile and has signs of upper uri, likely viral. pt does not require second trop given pt has had symptoms for 3 weeks. will send rx for Claritin, advise pmd f/u. pt agrees to plan, given return precautions. Discharge - Discharge Information Problems reviewed: Yes Clinical Impression/Diagnosis: Cough, Post-nasal drip Condition: Improved Disposition: HOME - Admission No - Additional Discharge Information Prescriptions: Loratadine [Claritin -] 10 mg PO DAILY #30 tablet - Follow up/Referral Referrals: Anup Jonas MD [Primary Care Provider] - - Patient Discharge Instructions Patient Printed Discharge Instructions: DI for Cough -- Adult Additional Instructions: You were seen in the emergency room today for a cough. The xray does not show signs of pneumonia and the blood work is normal. You most likely have a viral infection and the cough is due to post nasal drip. I recommend using Flonase daily and taking Claritin. Please make an appointment with Dr. Jonas next week regarding this ED visit. Please come back to the emergency room if you have worsening cough, feel short of breath, develop fever, have chest pain or if any new or concerning symptom develops. Thank you - Post Discharge Activity
--- NOTE | 2019-07-26 07:25 | PDOC ---
*Physical Exam - Vital Signs Last Vital Signs Temp Pulse Resp BP Pulse Ox 98.7 F 83 20 144/57 L 99 07/26/19 06:38 07/26/19 06:38 07/26/19 06:38 07/26/19 06:38 07/26/19 06:38 Heart Score/ECG Review - ECG Impressions Comment:: 07/26/19 13:04 HR 76, LAD w RBB - no acute ischemic change. ED Treatment Course - LABORATORY CBC & Chemistry Diagram: 07/26/19 07:51 07/26/19 07:51 Medical Decision Making - Medical Decision Making 07/26/19 07:25 Patient as seen pre-attending with Dr. Najera (PGY-2) 83 y/o male with HTN, HLD, NIDDM, Prostate CA (s/p presents w/one month h/o non -productive cough worse with lying supine. Associated rhinorhrea No chest pain , shortness of breath, sore throat. and son with similar symptoms. Clinical suspicion for viral syndrome (w/persistent cough 2/2 to post nasal drip ) 07/26/19 08:22 Troponin (-) x1 EKG with no acute ischemic changes as documented in EKG section of EMR CXR negative for acute pathology. Will d/c home with supportive care. Discharge - Discharge Information Problems reviewed: Yes Clinical Impression/Diagnosis: Cough, Post-nasal drip Condition: Improved Disposition: HOME - Additional Discharge Information Prescriptions: Loratadine [Claritin -] 10 mg PO DAILY #30 tablet - Follow up/Referral Referrals: Anup Jonas MD [Primary Care Provider] - - Patient Discharge Instructions Patient Printed Discharge Instructions: DI for Cough -- Adult Additional Instructions: You were seen in the emergency room today for a cough. The xray does not show signs of pneumonia and the blood work is normal. You most likely have a viral infection and the cough is due to post nasal drip. I recommend using Flonase daily and taking Claritin. Please make an appointment with Dr. Jonas next week regarding this ED visit. Please come back to the emergency room if you have worsening cough, feel short of breath, develop fever, have chest pain or if any new or concerning symptom develops. Thank you - Post Discharge Activity
[2019-07-26] MEDS ORDERED: FLUTICASONE PROP 0.05% 16 GM NASAL SPRAY NS ONE (07:32)
[2019-07-26] MEDS ORDERED: ALBUTEROL SO4 0.083% IH SOL 2.5 MG/3 ML VIAL.NEB. NEB ONE ×2 (07:32→08:00)
--- NOTE | 2019-07-26 08:17 | PDOC ---
Attending Attestation - Resident Resident Name: Sandy Najera - ED Attending Attestation I have performed the following: I have examined & evaluated the patient, The case was reviewed & discussed with the resident, I agree w/resident's findings & plan, Exceptions are as noted - HPI HPI: 07/26/19 09:32 83-year-old male with history of DM, hypertension, hypercholesterolemia presents with 1 month of dry nonproductive cough, dyspnea with exertion and intermittent orthopnea. Patient denies unintentional weight gain, leg edema, chest discomfort, fever or chills. Patient's family members experienced similar symptoms. There is no history of travel. - Physicial Exam PE: 07/26/19 09:33 Patient is awake and alert, well-appearing, in no significant distress Normocephalic and atraumatic PERRLA, EOMI No JVD CTA RRR No lower extremity edema. - Medical Decision Making 07/26/19 09:33 83-year-old male with multiple comorbidities presents with 1 month of dry nonproductive cough. Chest x-ray reveals no evidence of infiltrate or effusion , no evidence of cardiomegaly is noted. EKG is at baseline with underlying RBBB. CBC reveals mild leukocytosis likely related to a viral infection. CMP reveals no significant electrolyte abnormalities, hypomagnesemia is noted. Will administer 1 g of magnesium sulfate IV. Will discharge with antihistamines with outpatient follow-up. I do not suspect ACS or PE at this time.
[2019-07-26 08:33] LABS: BASO % 0.4 % (0-2.0); EOS % 0.7 % (0-4.5); HEMATOCRIT 41.5 % (35.4-49); HEMOGLOBIN 14.3 GM/dL (11.7-16.9); MCH 30.8 pg (25.7-33.7); MCHC 34.4 g/dl (32.0-35.9); MEAN CELL VOLUME 89.5 fl (80-96); MONO % 7.3 % (3.8-10.2); NEUT % 86.6 % (42.8-82.8); PLATELET COUNT 206 K/MM3 (134-434); RBC 4.63 M/mm3 (4.00-5.60); RDW 14.3 % (11.9-15.9); WHITE BLOOD COUNT 14.5 K/mm3 (4.0-10.0)
[2019-07-26 08:55] LABS: ALBUMIN 3.3 g/dl (3.4-5.0); ALK PHOS 107 U/L (45-117); ANION GAP 10 MMOL/L (8-16); BILIRUBIN,TOTAL 1.2 mg/dL (0.2-1); BLOOD UREA NITROGEN 13.6 mg/dL (7-18); CALCIUM 8.9 mg/dL (8.5-10.1); CHLORIDE 100 mmol/L (98-107); CO2 25 mmol/L (21-32); CREATININE 0.9 mg/dL (0.55-1.3); GLUCOSE,RANDOM 192 mg/dL (74-106); MAGNESIUM 1.7 mg/dL (1.8-2.4); POTASSIUM 3.5 mmol/L (3.5-5.1); SGOT/AST 14 U/L (15-37); SGPT/ALT 23 U/L (13-61); SODIUM 135 mmol/L (136-145); TOT PROT 6.4 g/dl (6.4-8.2)
[2019-07-26] MEDS ORDERED: MAGNESIUM SULF 50% (8.12 MEQ/2 ML-1 GM VIAL) IVPB ONE (09:17)
[2019-07-26] MEDS ORDERED: MAGNESIUM 1GM/D5W - 2 GM/200 ML IVPB IVPB ONE (09:55)
[2019-07-26 12:28] VITALS: BP 130/46; PULSE 80; TEMP 98.6
--- NOTE | 2019-07-26 14:39 | EKG ---
Test Reason : Blood Pressure : / mmHG Vent. Rate : 076 BPM Atrial Rate : 076 BPM P-R Int : 196 ms QRS Dur : 102 ms QT Int : 430 ms P-R-T Axes : 005 -47 009 degrees QTc Int : 483 ms POOR DATA QUALITY, INTERPRETATION MAY BE ADVERSELY AFFECTED SINUS RHYTHM WITH OCCASIONAL PREMATURE VENTRICULAR COMPLEXES RIGHT BUNDLE BRANCH BLOCK LEFT AXIS DEVIATION ABNORMAL ECG Confirmed by MD ORLY, ELIZABETH ([id number]) on 07/26/2019 2:39:30 PM Referred By: Confirmed By:ELIZABETH VILLALBA MD
== END 2019-07-26 12:31 | disposition home or self-care (01) ==
LOC: JER 06:24
PROC: 3E033GC Introduction of Other Therapeutic Substance into Peripheral Vein, Percutaneous Approach (ICD-10-PCS; principal; 2019-07-26)
DX: R05 Cough (principal); R09.82 Postnasal drip; I10 Essential (primary) hypertension; E78.00 Pure hypercholesterolemia, unspecified; E11.9 Type 2 diabetes mellitus without complications; Z79.4 Long term (current) use of insulin; E83.42 Hypomagnesemia; J45.909 Unspecified asthma, uncomplicated; Z85.46 Personal history of malignant neoplasm of prostate
CPT/HCPCS: 36415; 71046-TC-FY; 80053; 83735; 84484; 85025; 93005; 93010; 96374; 99282-25

== ENCOUNTER 2020-06-28 18:34 | Inpatient (IN) | payer OTHER ==
[2020-06-28] MEDS ORDERED: ACETAMINOPHEN 325 MG TABLET (FP) PO ONE ×2 (19:05→20:52)
[2020-06-28] MEDS ORDERED: SODIUM CHLORIDE 2,722 ML IV ONE (19:33)
[2020-06-28 20:10] LABS: BASO % 0.5 % (0-2.0); HEMATOCRIT 43.7 % (35.4-49); HEMOGLOBIN 14.6 GM/dL (11.7-16.9); LYMPH % 1.1 % (8-40); MCH 30.7 pg (25.7-33.7); MCHC 33.5 g/dl (32.0-35.9); MEAN CELL VOLUME 91.6 fl (80-96); MEAN PLT VOLUME 9.7 fl (7.5-11.1); MONO % 3.6 % (3.8-10.2); NEUT % 94.8 % (42.8-82.8); PLATELET COUNT 199 K/MM3 (134-434); RBC 4.77 M/mm3 (4.00-5.60); RDW 14.1 % (11.9-15.9); WHITE BLOOD COUNT 22.1 K/mm3 (4.0-10.0)
[2020-06-28 20:15] LABS: INR 1.18 (0.83-1.09); PROTHROMBIN TIME (PATIENT) 14.2 SEC (9.7-13.0)
[2020-06-28 20:18] LABS: ACTIVATED PTT 34.9 SECONDS (25.2-36.5)
[2020-06-28 20:19] LABS: CHLORIDE 98 mmol/L (98-107); POTASSIUM 3.6 mmol/L (3.5-5.1); SODIUM 133 mmol/L (136-145)
[2020-06-28 20:22] LABS: GLUCOSE,RANDOM 290 mg/dL (74-106)
[2020-06-28 20:23] LABS: ALBUMIN 3.4 g/dl (3.4-5.0); ANION GAP 9 MMOL/L (8-16); BLOOD UREA NITROGEN 18.2 mg/dL (7-18); CO2 26 mmol/L (21-32)
[2020-06-28 20:26] LABS: CREATININE 1.2 mg/dL (0.55-1.3); SGOT/AST 15 U/L (15-37); SGPT/ALT 26 U/L (13-61)
[2020-06-28 20:27] LABS: BILIRUBIN,TOTAL 1.3 mg/dL (0.2-1); TOT PROT 6.5 g/dl (6.4-8.2)
[2020-06-28 20:29] LABS: ALK PHOS 98 U/L (45-117)
[2020-06-28] MEDS ORDERED: ACETAMINOPHEN 325 MG TABLET (FP) ONE (21:25)
[2020-06-28 23:04] LABS: ANISOCYTOSIS 0; MACROCYTOSIS 0; OVALOCYTE 1+; PLATELET ESTIMATE NORMAL
[2020-06-29 00:57] LABS: PH,URINE 5.5 (5.0-8.0); URINE APPEARANCE CLEAR; URINE BILIRUBIN NEGATIVE (NEGATIVE); URINE COLOR YELLOW; URINE GLUCOSE (UA) 3+ (NEGATIVE); URINE KETONE 1+ (NEGATIVE); URINE LEUK ESTERASE NEGATIVE (NEGATIVE); URINE NITRITE NEGATIVE (NEGATIVE); URINE PROTEIN TRACE (NEGATIVE); URINE UROBILINOGEN 0.2 mg/dL (0.2-1.0)
[2020-06-29] MEDS ORDERED: PIPERACILLIN/TAZOB 4.5 GM 4.5 GM in DEXTROSE 5%-WATER 100 ML IVPB ONE (01:15)
[2020-06-29] MEDS ORDERED: VANCOMYCIN HCL 1,500 MG in DEXTROSE 5%-WATER - 500 ML IVPB ONE (01:16)
[2020-06-29] MEDS ORDERED: PIPERACILLIN/TAZOB 4.5 GM 4.5 GM/100 ML BAG IVPB ONE (01:39)
[2020-06-29] MEDS ORDERED: DEXAMETHASONE 4 MG TABLET (FP) PO ONE (02:47)
[2020-06-29 04:04] LABS: LDH 199 U/L (87-246)
[2020-06-29] MEDS ORDERED: DEXAMETHASONE 4 MG TABLET (FP) ONE (04:15)
[2020-06-29] MEDS ORDERED: INSULIN (LEVEMIR) 100 UNITS/ML UNITS SQ ONE (05:45)
[2020-06-29] MEDS ORDERED: ALBUTEROL SO4 HFA INHALER IH PRN (06:15)
[2020-06-29] MEDS: SODIUM CHLORIDE 1,000 ML IV SCH (08:10)
[2020-06-29 08:34] LABS: BASO % 0.2 % (0-2.0); HEMOGLOBIN 14.3 GM/dL (11.7-16.9); LYMPH % 1.4 % (8-40); MCH 31.1 pg (25.7-33.7); MEAN CELL VOLUME 91.5 fl (80-96); MEAN PLT VOLUME 9.8 fl (7.5-11.1); MONO % 2.2 % (3.8-10.2); NEUT % 96.2 % (42.8-82.8); PLATELET COUNT 170 K/MM3 (134-434); RBC 4.59 M/mm3 (4.00-5.60); RDW 14.3 % (11.9-15.9); WHITE BLOOD COUNT 16.3 K/mm3 (4.0-10.0)
[2020-06-29 08:35] LABS: POTASSIUM 3.6 mmol/L (3.5-5.1)
[2020-06-29 08:38] LABS: CALCIUM 8.1 mg/dL (8.5-10.1)
[2020-06-29 08:39] LABS: BLOOD UREA NITROGEN 18.2 mg/dL (7-18); MAGNESIUM 1.8 mg/dL (1.8-2.4)
[2020-06-29 08:42] LABS: CREATININE 1.1 mg/dL (0.55-1.3); PHOSPHOROUS 1.5 mg/dL (2.5-4.9)
[2020-06-29] MEDS ORDERED: CEFOXITIN SODIUM 1 GM in DEXTROSE 5%-WATER - 100 ML IVPB SCH (09:00)
[2020-06-29] MEDS ORDERED: ENOXAPARIN NA (PORCINE) 40 MG/0.4 ML DISP.SYRIN SQ SCH (10:00)
[2020-06-29] MEDS ORDERED: ASCORBIC ACID 500 MG TABLET (FP) ONE (10:14)
[2020-06-29] MEDS ORDERED: ZINC SULFATE 220 MG CAPSULE (FP) ONE (10:14)
[2020-06-29] MEDS ORDERED: CEFAZOLIN 1 GM/D5W 1 GM/50 ML BAG ONE (10:15)
[2020-06-29] MEDS ORDERED: ENOXAPARIN NA (PORCINE) 40 MG/0.4 ML DISP.SYRIN SQ ONE (10:15)
[2020-06-29] MEDS: ZINC SULFATE 220 MG CAPSULE (FP) PO SCH (10:20)
[2020-06-29] MEDS: CEFAZOLIN 1 GM in DEXTROSE 5%-WATER - 50 ML IVPB SCH ×2 (10:20→19:31)
[2020-06-29] MEDS: ASCORBIC ACID 500 MG TABLET (FP) PO SCH (10:20)
[2020-06-29 12:29] LABS: ANISOCYTOSIS 0; MACROCYTOSIS 0; PLATELET ESTIMATE NORMAL
[2020-06-29] MEDS: CHOLECALCIFEROL (VIT D3) 400 UNIT (10 MCG) TABLET PO SCH (13:24)
[2020-06-29 15:27] VITALS: BMI 30.4
[2020-06-29] MEDS: INSULIN SLIDING SCALE (NOVOLOG) 1 VIAL SQ SCH ×2 (17:09→22:11)
[2020-06-29] MEDS: INSULIN (NOVOLOG) ASPART 100 UNITS/ML 10ML VIAL SQ SCH (17:10)
[2020-06-30] MEDS: CEFAZOLIN 1 GM in DEXTROSE 5%-WATER - 50 ML IVPB SCH (01:49)
[2020-06-30] MEDS: SODIUM CHLORIDE 1,000 ML IV SCH (06:09)
[2020-06-30] MEDS: INSULIN SLIDING SCALE (NOVOLOG) 1 VIAL SQ SCH ×4 (06:54→21:36)
[2020-06-30] MEDS: ZINC SULFATE 220 MG CAPSULE (FP) PO SCH (09:28)
[2020-06-30] MEDS: CHOLECALCIFEROL (VIT D3) 400 UNIT (10 MCG) TABLET PO SCH (09:29)
[2020-06-30] MEDS: ASCORBIC ACID 500 MG TABLET (FP) PO SCH (09:29)
[2020-06-30] MEDS: INSULIN (NOVOLOG) ASPART 100 UNITS/ML 10ML VIAL SQ SCH ×3 (09:30→17:18)
[2020-06-30] MEDS: INSULIN (LEVEMIR) 100 UNITS/ML UNITS SQ SCH ×2 (09:30→21:37)
[2020-06-30] MEDS ORDERED: APIXABAN 5 MG TABLET PO SCH (10:00)
[2020-06-30] MEDS ORDERED: DEXAMETHASONE 4 MG TABLET (FP) PO SCH (10:00)
[2020-06-30] MEDS ORDERED: PIPERACILLIN/TAZOB 3.375 GM 3.375 GM in DEXTROSE 5%-WATER - 50 ML IVPB SCH (10:00)
[2020-06-30 13:05] LABS: BASO % 0.2 % (0-2.0); EOS % 0.3 % (0-4.5); HEMOGLOBIN 12.9 GM/dL (11.7-16.9); MCH 31.1 pg (25.7-33.7); MCHC 34.1 g/dl (32.0-35.9); MEAN CELL VOLUME 91.3 fl (80-96); MEAN PLT VOLUME 9.8 fl (7.5-11.1); NEUT % 85.5 % (42.8-82.8); PLATELET COUNT 165 K/MM3 (134-434); RBC 4.16 M/mm3 (4.00-5.60); RDW 14.2 % (11.9-15.9); WHITE BLOOD COUNT 13.4 K/mm3 (4.0-10.0)
[2020-06-30 13:22] LABS: POTASSIUM 3.5 mmol/L (3.5-5.1)
[2020-06-30 13:28] LABS: ALBUMIN 2.9 g/dl (3.4-5.0); BLOOD UREA NITROGEN 29.3 mg/dL (7-18); CALCIUM 7.9 mg/dL (8.5-10.1)
[2020-06-30 13:32] LABS: BILIRUBIN,TOTAL 0.4 mg/dL (0.2-1); CREATININE 0.8 mg/dL (0.55-1.3); PHOSPHOROUS 1.8 mg/dL (2.5-4.9)
[2020-06-30] MEDS: PIPERACILLIN/TAZOB 3.375 GM 3.375 GM in DEXTROSE 5%-WATER - 50 ML IVPB SCH (17:13)
[2020-07-01] MEDS: PIPERACILLIN/TAZOB 3.375 GM 3.375 GM in DEXTROSE 5%-WATER - 50 ML IVPB SCH ×4 (01:15→18:00)
[2020-07-01] MEDS: INSULIN (LEVEMIR) 100 UNITS/ML UNITS SQ SCH ×2 (06:55→21:55)
[2020-07-01] MEDS: INSULIN SLIDING SCALE (NOVOLOG) 1 VIAL SQ SCH ×4 (06:55→21:57)
[2020-07-01 08:38] LABS: BASO % 0.4 % (0-2.0); EOS % 1.3 % (0-4.5); LYMPH % 13.2 % (8-40); MCH 31.1 pg (25.7-33.7); MCHC 34.3 g/dl (32.0-35.9); MEAN CELL VOLUME 90.7 fl (80-96); MEAN PLT VOLUME 8.9 fl (7.5-11.1); MONO % 7.4 % (3.8-10.2); NEUT % 77.7 % (42.8-82.8); PLATELET COUNT 177 K/MM3 (134-434); RBC 4.19 M/mm3 (4.00-5.60); RDW 14.1 % (11.9-15.9); WHITE BLOOD COUNT 10.1 K/mm3 (4.0-10.0)
[2020-07-01 08:50] LABS: POTASSIUM 3.1 mmol/L (3.5-5.1)
[2020-07-01 08:52] LABS: CALCIUM 7.8 mg/dL (8.5-10.1)
[2020-07-01 08:53] LABS: ALBUMIN 2.9 g/dl (3.4-5.0); BLOOD UREA NITROGEN 21.4 mg/dL (7-18); MAGNESIUM 2.1 mg/dL (1.8-2.4)
[2020-07-01 08:56] LABS: CREATININE 0.8 mg/dL (0.55-1.3)
[2020-07-01 08:57] LABS: BILIRUBIN,TOTAL 0.6 mg/dL (0.2-1); TOT PROT 5.8 g/dl (6.4-8.2)
[2020-07-01] MEDS: INSULIN (NOVOLOG) ASPART 100 UNITS/ML 10ML VIAL SQ SCH ×3 (09:00→17:51)
[2020-07-01] MEDS: ASCORBIC ACID 500 MG TABLET (FP) PO SCH (09:43)
[2020-07-01] MEDS: CHOLECALCIFEROL (VIT D3) 400 UNIT (10 MCG) TABLET PO SCH (09:43)
[2020-07-01] MEDS: ZINC SULFATE 220 MG CAPSULE (FP) PO SCH (09:43)
[2020-07-01] MEDS ORDERED: PIPERACILLIN/TAZOB 3.375 GM 3.375 GM in DEXTROSE 5%-WATER - 50 ML IVPB SCH (10:00)
[2020-07-01] MEDS: KCL 10 MEQ IVPB 10 MEQ/100 ML INFUS.BAG IVPB SCH ×2 (12:08→17:24)
[2020-07-01] MEDS: SODIUM CHLORIDE 1,000 ML IV SCH (17:51)
[2020-07-02] MEDS: PIPERACILLIN/TAZOB 3.375 GM 3.375 GM in DEXTROSE 5%-WATER - 50 ML IVPB SCH ×3 (01:14→18:01)
[2020-07-02] MEDS: SODIUM CHLORIDE 1,000 ML IV SCH (06:41)
[2020-07-02] MEDS: INSULIN (LEVEMIR) 100 UNITS/ML UNITS SQ SCH ×2 (06:44→21:27)
[2020-07-02] MEDS: INSULIN SLIDING SCALE (NOVOLOG) 1 VIAL SQ SCH ×4 (06:45→21:29)
[2020-07-02] MEDS: FAMOTIDINE 10 MG TABLET PO SCH (09:19)
[2020-07-02] MEDS: INSULIN (NOVOLOG) ASPART 100 UNITS/ML 10ML VIAL SQ SCH ×3 (09:19→18:01)
[2020-07-02] MEDS: CHOLECALCIFEROL (VIT D3) 400 UNIT (10 MCG) TABLET PO SCH (09:20)
[2020-07-02] MEDS: ASCORBIC ACID 500 MG TABLET (FP) PO SCH (09:20)
[2020-07-02] MEDS: ZINC SULFATE 220 MG CAPSULE (FP) PO SCH (09:20)
[2020-07-02 09:24] LABS: BASO % 0.6 % (0-2.0); EOS % 2.3 % (0-4.5); HEMATOCRIT 40.2 % (35.4-49); HEMOGLOBIN 13.8 GM/dL (11.7-16.9); LYMPH % 14.5 % (8-40); MCH 31.2 pg (25.7-33.7); MCHC 34.3 g/dl (32.0-35.9); MEAN CELL VOLUME 90.9 fl (80-96); MEAN PLT VOLUME 9.1 fl (7.5-11.1); MONO % 8.5 % (3.8-10.2); NEUT % 74.1 % (42.8-82.8); PLATELET COUNT 196 K/MM3 (134-434); RBC 4.42 M/mm3 (4.00-5.60); WHITE BLOOD COUNT 8.6 K/mm3 (4.0-10.0)
[2020-07-02 09:44] LABS: POTASSIUM 3.6 mmol/L (3.5-5.1)
[2020-07-02 10:04] LABS: ALBUMIN 3.2 g/dl (3.4-5.0)
[2020-07-02 10:09] LABS: BLOOD UREA NITROGEN 13.6 mg/dL (7-18); CALCIUM 8.2 mg/dL (8.5-10.1)
[2020-07-02 10:11] LABS: MAGNESIUM 2.1 mg/dL (1.8-2.4)
[2020-07-02 10:13] LABS: BILIRUBIN,TOTAL 1.2 mg/dL (0.2-1); CREATININE 0.8 mg/dL (0.55-1.3); TOT PROT 6.2 g/dl (6.4-8.2)
[2020-07-02] MEDS: HEPARIN NA (PORCINE) 5,000 UNITS/ML 1ML VIAL SQ SCH ×2 (13:06→21:24)
[2020-07-02] MEDS: VANCOMYCIN HCL 1,250 MG in DEXTROSE 5%-WATER - 1,250 MG/250 ML IVPB IVPB SCH (14:07)
[2020-07-03] MEDS: PIPERACILLIN/TAZOB 3.375 GM 3.375 GM in DEXTROSE 5%-WATER - 50 ML IVPB SCH ×3 (01:46→17:50)
[2020-07-03] MEDS: INSULIN (LEVEMIR) 100 UNITS/ML UNITS SQ SCH ×2 (06:35→22:21)
[2020-07-03] MEDS: INSULIN SLIDING SCALE (NOVOLOG) 1 VIAL SQ SCH ×4 (06:51→22:20)
[2020-07-03] MEDS: INSULIN (NOVOLOG) ASPART 100 UNITS/ML 10ML VIAL SQ SCH ×3 (08:38→16:56)
[2020-07-03 10:45] LABS: BASO % 0.5 % (0-2.0); EOS % 2.7 % (0-4.5); HEMATOCRIT 39.4 % (35.4-49); HEMOGLOBIN 13.3 GM/dL (11.7-16.9); LYMPH % 13.5 % (8-40); MCH 31.2 pg (25.7-33.7); MCHC 33.9 g/dl (32.0-35.9); MEAN CELL VOLUME 92.1 fl (80-96); MEAN PLT VOLUME 9.1 fl (7.5-11.1); MONO % 7.2 % (3.8-10.2); NEUT % 76.1 % (42.8-82.8); PLATELET COUNT 189 K/MM3 (134-434); RBC 4.28 M/mm3 (4.00-5.60); RDW 14.1 % (11.9-15.9); WHITE BLOOD COUNT 8.2 K/mm3 (4.0-10.0)
[2020-07-03 11:15] LABS: POTASSIUM 3.4 mmol/L (3.5-5.1)
[2020-07-03 11:16] LABS: CALCIUM 8.2 mg/dL (8.5-10.1)
[2020-07-03 11:17] LABS: ALBUMIN 2.7 g/dl (3.4-5.0)
[2020-07-03 11:20] LABS: CREATININE 0.8 mg/dL (0.55-1.3)
[2020-07-03 11:21] LABS: BILIRUBIN,TOTAL 0.6 mg/dL (0.2-1)
[2020-07-03 11:22] LABS: TOT PROT 5.6 g/dl (6.4-8.2)
[2020-07-03] MEDS: HEPARIN NA (PORCINE) 5,000 UNITS/ML 1ML VIAL SQ SCH ×2 (11:46→22:21)
[2020-07-03] MEDS: ASCORBIC ACID 500 MG TABLET (FP) PO SCH (11:47)
[2020-07-03] MEDS: ZINC SULFATE 220 MG CAPSULE (FP) PO SCH (11:47)
[2020-07-03] MEDS: CHOLECALCIFEROL (VIT D3) 400 UNIT (10 MCG) TABLET PO SCH (11:47)
[2020-07-03] MEDS: FAMOTIDINE 10 MG TABLET PO SCH (11:47)
[2020-07-03] MEDS: VANCOMYCIN HCL 1,250 MG in DEXTROSE 5%-WATER - 1,250 MG/250 ML IVPB IVPB SCH (13:47)
[2020-07-04] MEDS: PIPERACILLIN/TAZOB 3.375 GM 3.375 GM in DEXTROSE 5%-WATER - 50 ML IVPB SCH ×3 (02:00→17:24)
[2020-07-04] MEDS: INSULIN SLIDING SCALE (NOVOLOG) 1 VIAL SQ SCH ×4 (06:03→22:09)
[2020-07-04] MEDS: INSULIN (LEVEMIR) 100 UNITS/ML UNITS SQ SCH ×2 (06:03→22:06)
[2020-07-04] MEDS: INSULIN (NOVOLOG) ASPART 100 UNITS/ML 10ML VIAL SQ SCH ×3 (08:26→17:36)
[2020-07-04] MEDS: FAMOTIDINE 10 MG TABLET PO SCH (10:09)
[2020-07-04] MEDS: ZINC SULFATE 220 MG CAPSULE (FP) PO SCH (10:09)
[2020-07-04] MEDS: HEPARIN NA (PORCINE) 5,000 UNITS/ML 1ML VIAL SQ SCH ×2 (10:09→22:05)
[2020-07-04] MEDS: ASCORBIC ACID 500 MG TABLET (FP) PO SCH (10:10)
[2020-07-04] MEDS: CHOLECALCIFEROL (VIT D3) 400 UNIT (10 MCG) TABLET PO SCH (10:10)
[2020-07-04] MEDS ORDERED: POTASSIUM CHLORIDE TABS 20 MEQ TABLET.ER (FP) PO ONE (15:20)
[2020-07-04] MEDS ORDERED: AMOX TR/POT CLAV 875MG/125MG TABLETS (FP) PO SCH (17:30)
[2020-07-04] MEDS: VANCOMYCIN 1 GRAM (PRE-DOCKED) 1,000 MG/250 ML BAG IVPB SCH (17:31)
[2020-07-05] MEDS: PIPERACILLIN/TAZOB 3.375 GM 3.375 GM in DEXTROSE 5%-WATER - 50 ML IVPB SCH ×2 (01:47→09:50)
[2020-07-05] MEDS: VANCOMYCIN 1 GRAM (PRE-DOCKED) 1,000 MG/250 ML BAG IVPB SCH ×2 (04:57→17:30)
[2020-07-05] MEDS: INSULIN (LEVEMIR) 100 UNITS/ML UNITS SQ SCH ×2 (06:19→21:32)
[2020-07-05] MEDS: INSULIN SLIDING SCALE (NOVOLOG) 1 VIAL SQ SCH ×4 (06:20→21:33)
[2020-07-05] MEDS: INSULIN (NOVOLOG) ASPART 100 UNITS/ML 10ML VIAL SQ SCH ×3 (08:31→16:48)
[2020-07-05] MEDS: CHOLECALCIFEROL (VIT D3) 400 UNIT (10 MCG) TABLET PO SCH (09:51)
[2020-07-05] MEDS: HEPARIN NA (PORCINE) 5,000 UNITS/ML 1ML VIAL SQ SCH ×2 (09:51→21:32)
[2020-07-05] MEDS: FAMOTIDINE 10 MG TABLET PO SCH (09:51)
[2020-07-05] MEDS: ASCORBIC ACID 500 MG TABLET (FP) PO SCH (09:52)
[2020-07-05] MEDS: ZINC SULFATE 220 MG CAPSULE (FP) PO SCH (09:52)
[2020-07-05 14:01] LABS: BASO % 0.5 % (0-2.0); EOS % 4.2 % (0-4.5); HEMATOCRIT 42.9 % (35.4-49); HEMOGLOBIN 14.6 GM/dL (11.7-16.9); LYMPH % 12.8 % (8-40); MCH 31.1 pg (25.7-33.7); MEAN CELL VOLUME 91.5 fl (80-96); MEAN PLT VOLUME 9.6 fl (7.5-11.1); MONO % 7.3 % (3.8-10.2); NEUT % 75.2 % (42.8-82.8); PLATELET COUNT 276 K/MM3 (134-434); RBC 4.69 M/mm3 (4.00-5.60); RDW 14.1 % (11.9-15.9); WHITE BLOOD COUNT 7.9 K/mm3 (4.0-10.0)
[2020-07-05 14:14] LABS: POTASSIUM 4.4 mmol/L (3.5-5.1)
[2020-07-05 14:15] LABS: CALCIUM 9.4 mg/dL (8.5-10.1)
[2020-07-05 14:16] LABS: BLOOD UREA NITROGEN 14.5 mg/dL (7-18); MAGNESIUM 2.2 mg/dL (1.8-2.4)
[2020-07-05 14:19] LABS: CREATININE 0.8 mg/dL (0.55-1.3); PHOSPHOROUS 3.4 mg/dL (2.5-4.9)
[2020-07-06] MEDS: VANCOMYCIN 1 GRAM (PRE-DOCKED) 1,000 MG/250 ML BAG IVPB SCH ×2 (04:32→17:27)
[2020-07-06] MEDS: INSULIN (LEVEMIR) 100 UNITS/ML UNITS SQ SCH (07:12)
[2020-07-06] MEDS: INSULIN SLIDING SCALE (NOVOLOG) 1 VIAL SQ SCH ×3 (07:12→18:04)
[2020-07-06] MEDS ORDERED: TAMSULOSIN HCL 0.4 MG CAP PO SCH (08:30)
[2020-07-06] MEDS ORDERED: INSULIN SLIDING SCALE (NOVOLOG) 1 VIAL SQ ONE (09:19)
[2020-07-06] MEDS: INSULIN (NOVOLOG) ASPART 100 UNITS/ML 10ML VIAL SQ SCH ×3 (09:35→18:05)
[2020-07-06] MEDS: CHOLECALCIFEROL (VIT D3) 400 UNIT (10 MCG) TABLET PO SCH (09:35)
[2020-07-06] MEDS: HEPARIN NA (PORCINE) 5,000 UNITS/ML 1ML VIAL SQ SCH (09:36)
[2020-07-06] MEDS: FAMOTIDINE 10 MG TABLET PO SCH (09:36)
[2020-07-06] MEDS: ZINC SULFATE 220 MG CAPSULE (FP) PO SCH (09:36)
[2020-07-06] MEDS: ASCORBIC ACID 500 MG TABLET (FP) PO SCH (09:37)
[2020-07-06] MEDS ORDERED: amLODIPine BESYLATE 2.5 MG TABLET (FP) PO SCH (10:00)
[2020-07-06] MEDS ORDERED: LOSARTAN POTASSIUM 50 MG TABLET PO SCH (10:00)
[2020-07-06] MEDS ORDERED: ASPIRIN 81 MG CHEWABLE TABLETS PO SCH (10:00)
[2020-07-06] MEDS ORDERED: HYDROCHLOROTHIAZIDE 50 MG TABLET PO SCH (10:00)
[2020-07-06] MEDS ORDERED: VANCOMYCIN 1 GM in D5W (PRE-DOCKED) 1,000 MG/250 ML IVPB ONE (17:33)
[2020-07-06 20:31] VITALS: BP 150/74; PULSE 75; TEMP 98.3
== END 2020-07-06 20:30 | disposition home or self-care (01) | DRG 872 ==
LOC: JER 18:34 → JERBED 06-29 02:45 → J5WEST-2 06-29 13:15
PROVIDERS: ADMIT Hospitalist; ATTEND Internal Medicine
DX: A41.89 Other specified sepsis (principal); E87.2 Acidosis; E87.1 Hypo-osmolality and hyponatremia; J98.11 Atelectasis; L03.115 Cellulitis of right lower limb; I10 Essential (primary) hypertension; E78.5 Hyperlipidemia, unspecified; J45.909 Unspecified asthma, uncomplicated; R50.9 Fever, unspecified; D72.829 Elevated white blood cell count, unspecified; E87.6 Hypokalemia; E11.65 Type 2 diabetes mellitus with hyperglycemia; R09.02 Hypoxemia; F41.9 Anxiety disorder, unspecified; E66.9 Obesity, unspecified; Z68.30 Body mass index [BMI] 30.0-30.9, adult; Z85.46 Personal history of malignant neoplasm of prostate; Z85.51 Personal history of malignant neoplasm of bladder
CPT/HCPCS: 36415; 71045-TC-FY; 71275-TC; 80048; 80053; 81003; 82728; 82962; 83605; 83615; 83735; 84100; 84484; 85025; 85379; 85610; 85651; 85730; 86140; 87040; 87086; 87804; 93005; 93010; 93970-TC; 94010; 97116-GP; 97161-GP; 99285-25; C9803; J1644; Q9967; U0003

== ENCOUNTER 2021-06-24 18:17 | Inpatient (IN) | payer OTHER ==
[2021-06-24] MEDS ORDERED: LACTATED RINGERS SOLUTION 1000 ML INFUS.BAG IV ONE (19:19)
[2021-06-24] MEDS ORDERED: ACETAMINOPHEN 1000 MG/100 ML BAG IVPB ONE (19:30)
[2021-06-24] MEDS ORDERED: ACETAMINOPHEN INJECTION 100 ML IVPB ONE (19:31)
[2021-06-24 20:27] LABS: BASO % 0.6 % (0-2.0); EOS % 0.1 % (0-4.5); HEMATOCRIT 45.3 % (35.4-49); HEMOGLOBIN 15.4 GM/dL (11.7-16.9); LYMPH % 1.1 % (8-40); MCH 30.5 pg (25.7-33.7); MCHC 34.1 g/dl (32.0-35.9); MEAN CELL VOLUME 89.5 fl (80-96); MEAN PLT VOLUME 8.7 fl (7.5-11.1); MONO % 4.3 % (3.8-10.2); NEUT % 93.9 % (42.8-82.8); PLATELET COUNT 212 10^3/uL (134-434); RBC 5.06 M/mm3 (4.00-5.60); RDW 14.1 % (11.9-15.9); WHITE BLOOD COUNT 23.2 K/mm3 (4.0-10.0)
[2021-06-24] MEDS ORDERED: CEFTRIAXONE 1 GM in DEXTROSE 5%-WATER - 100 ML IVPB ONE (20:31)
[2021-06-24] MEDS ORDERED: PIPERACILLIN/TAZOB 4.5 GM 4.5 GM in DEXTROSE 5%-WATER 100 ML IVPB ONE (20:32)
[2021-06-24 20:37] LABS: INR 1.15 (0.83-1.09); PROTHROMBIN TIME (PATIENT) 13.2 SEC (9.7-13.0)
[2021-06-24 20:39] LABS: CHLORIDE 101 mmol/L (98-107); SODIUM 139 mmol/L (136-145)
[2021-06-24 20:40] LABS: ACTIVATED PTT 35.2 SECONDS (25.2-36.5)
[2021-06-24 20:41] LABS: CALCIUM 9.3 mg/dL (8.5-10.1)
[2021-06-24 20:42] LABS: ALBUMIN 3.9 g/dl (3.4-5.0); ANION GAP 8 MMOL/L (8-16); BLOOD UREA NITROGEN 18.7 mg/dL (7-18); CO2 30 mmol/L (21-32); GLUCOSE,RANDOM 158 mg/dL (74-106)
[2021-06-24 20:45] LABS: CREATININE 0.9 mg/dL (0.55-1.3); SGOT/AST 22 U/L (15-37); SGPT/ALT 29 U/L (13-61)
[2021-06-24] MEDS ORDERED: PIPERACILLIN/TAZOB 4.5 GM 4.5 GM/100 ML BAG IVPB ONE (20:46)
[2021-06-24 20:47] LABS: BILIRUBIN,TOTAL 0.7 mg/dL (0.2-1); VENOUS BASE EXCESS 2.8 mmol/L (-2-2); VENOUS PCO2 33.3 mmHg (38-52); VENOUS PH 7.499 (7.310-7.410)
[2021-06-24 20:48] LABS: ALK PHOS 123 U/L (45-117)
[2021-06-24] MEDS ORDERED: VANCOMYCIN 1 GM in D5W (PRE-DOCKED) 1,000 MG/250 ML IVPB ONE (21:53)
[2021-06-24 23:44] LABS: URINE APPEARANCE CLEAR; URINE BILIRUBIN NEGATIVE (NEGATIVE); URINE COLOR YELLOW; URINE GLUCOSE (UA) 1+ (NEGATIVE); URINE KETONE 1+ (NEGATIVE); URINE LEUK ESTERASE NEGATIVE (NEGATIVE); URINE NITRITE NEGATIVE (NEGATIVE); URINE PROTEIN TRACE (NEGATIVE); URINE UROBILINOGEN 0.2 mg/dL (0.2-1.0)
[2021-06-25] MEDS ORDERED: SODIUM CHLORIDE 1,000 ML IV SCH (00:45)
[2021-06-25] MEDS: CEFAZOLIN 1 GM in DEXTROSE 5%-WATER - 50 ML IVPB SCH ×3 (03:40→18:36)
[2021-06-25] MEDS ORDERED: ceFAZolin SODIUM 1 GM VIAL ONE ×4 (03:51→17:56)
[2021-06-25] MEDS ORDERED: TAMSULOSIN HCL 0.4 MG CAP ONE (07:56)
[2021-06-25] MEDS: INSULIN SLIDING SCALE (NOVOLOG) 1 VIAL SQ SCH ×4 (08:05→22:20)
[2021-06-25] MEDS: TAMSULOSIN HCL 0.4 MG CAP PO SCH (08:05)
[2021-06-25 08:27] LABS: HEMOGLOBIN 13.5 GM/dL (11.7-16.9); MCH 30.3 pg (25.7-33.7); MCHC 33.8 g/dl (32.0-35.9); MEAN CELL VOLUME 89.6 fl (80-96); MEAN PLT VOLUME 8.9 fl (7.5-11.1); PLATELET COUNT 182 10^3/uL (134-434); RBC 4.47 M/mm3 (4.00-5.60); RDW 13.7 % (11.9-15.9); WHITE BLOOD COUNT 18.3 K/mm3 (4.0-10.0)
[2021-06-25 08:43] LABS: CALCIUM 8.6 mg/dL (8.5-10.1)
[2021-06-25 08:50] LABS: PHOSPHOROUS 2.8 mg/dL (2.5-4.9)
[2021-06-25] MEDS: LOSARTAN POTASSIUM 50 MG TABLET PO SCH (10:02)
[2021-06-25] MEDS: amLODIPine BESYLATE 2.5 MG TABLET (FP) PO SCH (10:03)
[2021-06-25] MEDS ORDERED: HYDROCHLOROTHIAZIDE 25 MG TABLET (FP) ONE (10:07)
[2021-06-25] MEDS ORDERED: ENOXAPARIN NA (PORCINE) 40 MG/0.4 ML DISP.SYRIN SQ ONE (10:08)
[2021-06-25] MEDS: ENOXAPARIN NA (PORCINE) 40 MG/0.4 ML DISP.SYRIN SQ SCH (10:36)
[2021-06-25] MEDS: HYDROCHLOROTHIAZIDE 25 MG TABLET (FP) PO SCH (10:36)
[2021-06-25] MEDS ORDERED: POTASSIUM CHLORIDE TABS 20 MEQ TABLET.ER (FP) PO ONE ×2 (12:54→13:07)
[2021-06-25] MEDS ORDERED: DOXYCYCLINE HYCLATE 100 MG VIAL ONE ×2 (13:07→21:58)
[2021-06-25] MEDS: DOXYCYCLINE INJECTION 100 MG in DEXTROSE 5%-WATER 100 ML IVPB SCH ×2 (13:45→22:21)
[2021-06-25] MEDS: Insulin (LOG) Aspart 100 UNITS/ML VIAL SQ SCH (18:14)
[2021-06-25] MEDS ORDERED: DEXTROSE 5%-WATER 100 ML IVPB ONE (21:59)
[2021-06-25] MEDS: INSULIN (LEVEMIR) 100 UNITS/ML UNITS SQ SCH (22:19)
[2021-06-25 22:55] VITALS: BMI 30.6
[2021-06-26] MEDS ORDERED: ceFAZolin SODIUM 1 GM VIAL ONE ×2 (01:58→09:24)
[2021-06-26] MEDS ORDERED: DEXTROSE 5%-WATER - 50 ML IVPB ONE ×2 (01:59→09:25)
[2021-06-26] MEDS: CEFAZOLIN 1 GM in DEXTROSE 5%-WATER - 50 ML IVPB SCH ×3 (02:01→20:49)
[2021-06-26] MEDS: INSULIN SLIDING SCALE (NOVOLOG) 1 VIAL SQ SCH ×4 (06:41→21:29)
[2021-06-26] MEDS: Insulin (LOG) Aspart 100 UNITS/ML VIAL SQ SCH ×3 (06:41→17:03)
[2021-06-26 09:23] LABS: CALCIUM 8.2 mg/dl (8.5-10); CREATININE 0.9 mg/dl (0.55-1.3)
[2021-06-26] MEDS ORDERED: DOXYCYCLINE HYCLATE 100 MG VIAL ONE ×2 (09:23→21:21)
[2021-06-26] MEDS ORDERED: DEXTROSE 5%-WATER 100 ML IVPB ONE ×2 (09:24→21:21)
[2021-06-26] MEDS: TAMSULOSIN HCL 0.4 MG CAP PO SCH (09:30)
[2021-06-26 09:35] LABS: BASO % 0.2 % (0-2.0); EOS % 0.9 % (0-4.5); HEMATOCRIT 38.2 % (35.4-49); HEMOGLOBIN 13.2 GM/dL (11.7-16.9); LYMPH % 7.4 % (8-40); MCH 30.7 pg (25.7-33.7); MCHC 34.5 g/dl (32.0-35.9); MEAN CELL VOLUME 89.1 fl (80-96); MONO % 7.8 % (3.8-10.2); NEUT % 83.7 % (42.8-82.8); PLATELET COUNT 147 10^3/uL (134-434); RBC 4.28 M/mm3 (4.00-5.60); WHITE BLOOD COUNT 10.2 K/mm3 (4.0-10.0)
[2021-06-26] MEDS: amLODIPine BESYLATE 2.5 MG TABLET (FP) PO SCH (09:42)
[2021-06-26] MEDS: HYDROCHLOROTHIAZIDE 25 MG TABLET (FP) PO SCH (09:43)
[2021-06-26] MEDS: LOSARTAN POTASSIUM 50 MG TABLET PO SCH (09:43)
[2021-06-26] MEDS: INSULIN (LEVEMIR) 100 UNITS/ML UNITS SQ SCH ×2 (09:44→21:29)
[2021-06-26] MEDS: DOXYCYCLINE INJECTION 100 MG in DEXTROSE 5%-WATER 100 ML IVPB SCH ×2 (09:45→21:29)
[2021-06-26] MEDS: ENOXAPARIN NA (PORCINE) 40 MG/0.4 ML DISP.SYRIN SQ SCH (09:46)
[2021-06-27] MEDS: CEFAZOLIN 1 GM in DEXTROSE 5%-WATER - 50 ML IVPB SCH ×3 (03:14→17:33)
[2021-06-27] MEDS: INSULIN SLIDING SCALE (NOVOLOG) 1 VIAL SQ SCH ×4 (07:17→22:07)
[2021-06-27] MEDS: Insulin (LOG) Aspart 100 UNITS/ML VIAL SQ SCH ×3 (07:40→17:12)
[2021-06-27 09:21] LABS: BILIRUBIN,TOTAL 0.9 mg/dl (0.2-1); CALCIUM 8.6 mg/dl (8.5-10); CREATININE 0.8 mg/dl (0.55-1.3); MAGNESIUM 1.7 mg/dL (1.8-2.4); TOT PROT 5.6 g/dl (6.4-8.2)
[2021-06-27] MEDS ORDERED: DOXYCYCLINE HYCLATE 100 MG VIAL ONE (09:42)
[2021-06-27] MEDS ORDERED: DEXTROSE 5%-WATER 100 ML IVPB ONE (09:42)
[2021-06-27] MEDS: DOXYCYCLINE INJECTION 100 MG in DEXTROSE 5%-WATER 100 ML IVPB SCH (10:01)
[2021-06-27] MEDS: HYDROCHLOROTHIAZIDE 25 MG TABLET (FP) PO SCH (10:02)
[2021-06-27] MEDS: TAMSULOSIN HCL 0.4 MG CAP PO SCH (10:02)
[2021-06-27] MEDS: amLODIPine BESYLATE 2.5 MG TABLET (FP) PO SCH (10:02)
[2021-06-27] MEDS: LOSARTAN POTASSIUM 50 MG TABLET PO SCH (10:02)
[2021-06-27] MEDS: INSULIN (LEVEMIR) 100 UNITS/ML UNITS SQ SCH ×2 (10:03→21:16)
[2021-06-27] MEDS: ENOXAPARIN NA (PORCINE) 40 MG/0.4 ML DISP.SYRIN SQ SCH (10:03)
[2021-06-27 10:19] LABS: BASO % 0.4 % (0-2.0); EOS % 2.5 % (0-4.5); HEMATOCRIT 39.3 % (35.4-49); HEMOGLOBIN 13.4 GM/dL (11.7-16.9); LYMPH % 13.1 % (8-40); MCH 30.5 pg (25.7-33.7); MCHC 34.1 g/dl (32.0-35.9); MEAN CELL VOLUME 89.5 fl (80-96); MEAN PLT VOLUME 8.7 fl (7.5-11.1); MONO % 9.5 % (3.8-10.2); NEUT % 74.5 % (42.8-82.8); PLATELET COUNT 150 10^3/uL (134-434); RBC 4.39 M/mm3 (4.00-5.60); RDW 13.9 % (11.9-15.9); WHITE BLOOD COUNT 8.3 K/mm3 (4.0-10.0)
[2021-06-27] MEDS ORDERED: MAGNESIUM 2GM/50ML STERILE WATER IVPB IVPB ONE (12:50)
[2021-06-27] MEDS ORDERED: ceFAZolin SODIUM 1 GM VIAL ONE (17:15)
[2021-06-27] MEDS ORDERED: DEXTROSE 5%-WATER - 50 ML IVPB ONE (17:16)
[2021-06-27] MEDS: VANCOMYCIN/WATER BAGS 1,250 MG/250 ML BAG IVPB SCH (21:16)
[2021-06-28] MEDS ORDERED: ceFAZolin SODIUM 1 GM VIAL ONE ×4 (00:09→23:01)
[2021-06-28] MEDS ORDERED: DEXTROSE 5%-WATER - 50 ML IVPB ONE ×4 (00:09→23:01)
[2021-06-28] MEDS: CEFAZOLIN 1 GM in DEXTROSE 5%-WATER - 50 ML IVPB SCH ×3 (02:07→17:15)
[2021-06-28] MEDS: INSULIN SLIDING SCALE (NOVOLOG) 1 VIAL SQ SCH ×4 (06:06→22:06)
[2021-06-28] MEDS: Insulin (LOG) Aspart 100 UNITS/ML VIAL SQ SCH ×3 (08:23→17:13)
[2021-06-28 08:48] LABS: ALBUMIN 2.8 g/dl (3.4-5.0); BILIRUBIN,TOTAL 0.9 mg/dl (0.2-1); CALCIUM 8.3 mg/dl (8.5-10); CREATININE 0.7 mg/dl (0.55-1.3); MAGNESIUM 1.9 mg/dL (1.8-2.4); TOT PROT 5.6 g/dl (6.4-8.2)
[2021-06-28] MEDS: amLODIPine BESYLATE 2.5 MG TABLET (FP) PO SCH (10:38)
[2021-06-28] MEDS: HYDROCHLOROTHIAZIDE 25 MG TABLET (FP) PO SCH (10:38)
[2021-06-28] MEDS: LOSARTAN POTASSIUM 50 MG TABLET PO SCH (10:38)
[2021-06-28] MEDS: TAMSULOSIN HCL 0.4 MG CAP PO SCH (10:39)
[2021-06-28] MEDS: ENOXAPARIN NA (PORCINE) 40 MG/0.4 ML DISP.SYRIN SQ SCH (10:39)
[2021-06-28] MEDS ORDERED: POTASSIUM CHLORIDE TABS 20 MEQ TABLET.ER (FP) PO ONE (10:40)
[2021-06-28] MEDS: INSULIN (LEVEMIR) 100 UNITS/ML UNITS SQ SCH ×2 (10:44→22:04)
[2021-06-28 10:48] LABS: BASO % 0.3 % (0-2.0); EOS % 3.3 % (0-4.5); HEMATOCRIT 38.8 % (35.4-49); HEMOGLOBIN 13.7 GM/dL (11.7-16.9); LYMPH % 12.4 % (8-40); MCH 31.1 pg (25.7-33.7); MCHC 35.2 g/dl (32.0-35.9); MEAN CELL VOLUME 88.3 fl (80-96); PLATELET COUNT 167 10^3/uL (134-434); RDW 13.8 % (11.9-15.9); WHITE BLOOD COUNT 7.4 K/mm3 (4.0-10.0)
[2021-06-28] MEDS ORDERED: PT OWN MED DRAWER 7, Y5N ONE (17:19)
[2021-06-28] MEDS: VANCOMYCIN/WATER BAGS 1,250 MG/250 ML BAG IVPB SCH (19:00)
[2021-06-29] MEDS: CEFAZOLIN 1 GM in DEXTROSE 5%-WATER - 50 ML IVPB SCH ×3 (02:00→18:05)
[2021-06-29] MEDS ORDERED: DEXTROSE 5%-WATER - 50 ML IVPB ONE ×3 (03:18→17:46)
[2021-06-29] MEDS ORDERED: ceFAZolin SODIUM 1 GM VIAL ONE ×3 (03:18→17:45)
[2021-06-29] MEDS: VANCOMYCIN/WATER BAGS 1,250 MG/250 ML BAG IVPB SCH ×2 (06:25→21:26)
[2021-06-29] MEDS: INSULIN SLIDING SCALE (NOVOLOG) 1 VIAL SQ SCH ×4 (06:32→21:24)
[2021-06-29] MEDS: Insulin (LOG) Aspart 100 UNITS/ML VIAL SQ SCH ×3 (06:33→17:07)
[2021-06-29 09:07] LABS: ALBUMIN 3.3 g/dl (3.4-5.0); BILIRUBIN,TOTAL 1.1 mg/dl (0.2-1); CALCIUM 8.9 mg/dl (8.5-10); CREATININE 0.7 mg/dl (0.55-1.3); TOT PROT 6.3 g/dl (6.4-8.2)
[2021-06-29] MEDS: LOSARTAN POTASSIUM 50 MG TABLET PO SCH (09:25)
[2021-06-29] MEDS: ENOXAPARIN NA (PORCINE) 40 MG/0.4 ML DISP.SYRIN SQ SCH (09:25)
[2021-06-29] MEDS: TAMSULOSIN HCL 0.4 MG CAP PO SCH (09:25)
[2021-06-29] MEDS: HYDROCHLOROTHIAZIDE 25 MG TABLET (FP) PO SCH (09:25)
[2021-06-29] MEDS: amLODIPine BESYLATE 2.5 MG TABLET (FP) PO SCH (09:25)
[2021-06-29] MEDS: INSULIN (LEVEMIR) 100 UNITS/ML UNITS SQ SCH ×2 (09:25→21:24)
[2021-06-29 10:14] LABS: BASO % 0.5 % (0-2.0); EOS % 3.5 % (0-4.5); HEMATOCRIT 42.8 % (35.4-49); HEMOGLOBIN 14.3 GM/dL (11.7-16.9); LYMPH % 16.8 % (8-40); MCH 29.9 pg (25.7-33.7); MCHC 33.3 g/dl (32.0-35.9); MEAN CELL VOLUME 89.6 fl (80-96); MONO % 8.8 % (3.8-10.2); NEUT % 70.4 % (42.8-82.8); PLATELET COUNT 235 10^3/uL (134-434); RBC 4.78 M/mm3 (4.00-5.60); RDW 13.7 % (11.9-15.9); WHITE BLOOD COUNT 7.3 K/mm3 (4.0-10.0)
[2021-06-29 11:49] LABS: MAGNESIUM 2.3 mg/dL (1.8-2.4)
[2021-06-29] MEDS: GABAPENTIN 100 MG CAPSULE PO SCH (21:26)
[2021-06-30] MEDS: CEFAZOLIN 1 GM in DEXTROSE 5%-WATER - 50 ML IVPB SCH ×3 (02:00→17:37)
[2021-06-30] MEDS: INSULIN SLIDING SCALE (NOVOLOG) 1 VIAL SQ SCH ×4 (06:42→21:09)
[2021-06-30] MEDS: Insulin (LOG) Aspart 100 UNITS/ML VIAL SQ SCH ×3 (06:43→14:40)
[2021-06-30 08:40] LABS: ALBUMIN 2.8 g/dl (3.4-5.0); BILIRUBIN,TOTAL 0.9 mg/dl (0.2-1); CALCIUM 8.5 mg/dl (8.5-10); CREATININE 0.7 mg/dl (0.55-1.3); MAGNESIUM 1.6 mg/dL (1.8-2.4); TOT PROT 5.3 g/dl (6.4-8.2)
[2021-06-30] MEDS: HYDROCHLOROTHIAZIDE 25 MG TABLET (FP) PO SCH (09:15)
[2021-06-30] MEDS: GABAPENTIN 100 MG CAPSULE PO SCH ×2 (09:15→21:09)
[2021-06-30] MEDS: amLODIPine BESYLATE 2.5 MG TABLET (FP) PO SCH (09:15)
[2021-06-30] MEDS: LOSARTAN POTASSIUM 50 MG TABLET PO SCH (09:15)
[2021-06-30] MEDS: TAMSULOSIN HCL 0.4 MG CAP PO SCH (09:15)
[2021-06-30] MEDS: ENOXAPARIN NA (PORCINE) 40 MG/0.4 ML DISP.SYRIN SQ SCH (09:15)
[2021-06-30] MEDS: INSULIN (LEVEMIR) 100 UNITS/ML UNITS SQ SCH ×2 (09:16→21:09)
[2021-06-30] MEDS ORDERED: DEXTROSE 5%-WATER - 50 ML IVPB ONE ×3 (09:26→20:48)
[2021-06-30] MEDS ORDERED: ceFAZolin SODIUM 1 GM VIAL ONE ×3 (09:26→20:48)
[2021-06-30 10:29] LABS: BASO % 0.5 % (0-2.0); EOS % 3.4 % (0-4.5); HEMATOCRIT 39.3 % (35.4-49); LYMPH % 15.1 % (8-40); MCH 29.4 pg (25.7-33.7); MEAN CELL VOLUME 89.2 fl (80-96); MEAN PLT VOLUME 8.8 fl (7.5-11.1); MONO % 8.4 % (3.8-10.2); NEUT % 72.6 % (42.8-82.8); PLATELET COUNT 228 10^3/uL (134-434); RBC 4.41 M/mm3 (4.00-5.60); RDW 13.3 % (11.9-15.9); WHITE BLOOD COUNT 7.2 K/mm3 (4.0-10.0)
[2021-06-30] MEDS: VANCOMYCIN/WATER BAGS 1,250 MG/250 ML BAG IVPB SCH (16:45)
[2021-07-01] MEDS: CEFAZOLIN 1 GM in DEXTROSE 5%-WATER - 50 ML IVPB SCH ×2 (02:00→09:36)
[2021-07-01] MEDS ORDERED: ceFAZolin SODIUM 1 GM VIAL ONE ×2 (03:10→09:27)
[2021-07-01] MEDS ORDERED: DEXTROSE 5%-WATER - 50 ML IVPB ONE ×2 (03:10→09:27)
[2021-07-01] MEDS: INSULIN SLIDING SCALE (NOVOLOG) 1 VIAL SQ SCH ×2 (06:13→11:20)
[2021-07-01] MEDS: Insulin (LOG) Aspart 100 UNITS/ML VIAL SQ SCH ×2 (06:14→11:22)
[2021-07-01] MEDS: TAMSULOSIN HCL 0.4 MG CAP PO SCH (09:34)
[2021-07-01] MEDS: LOSARTAN POTASSIUM 50 MG TABLET PO SCH (09:36)
[2021-07-01] MEDS: HYDROCHLOROTHIAZIDE 25 MG TABLET (FP) PO SCH (09:36)
[2021-07-01] MEDS: ENOXAPARIN NA (PORCINE) 40 MG/0.4 ML DISP.SYRIN SQ SCH (09:38)
[2021-07-01] MEDS: amLODIPine BESYLATE 2.5 MG TABLET (FP) PO SCH (09:39)
[2021-07-01] MEDS: GABAPENTIN 100 MG CAPSULE PO SCH (09:39)
[2021-07-01] MEDS: INSULIN (LEVEMIR) 100 UNITS/ML UNITS SQ SCH (09:49)
[2021-07-01 14:46] VITALS: BP 143/59; PULSE 59; TEMP 98.3
== END 2021-07-01 16:35 | disposition home or self-care (01) | DRG 872 ==
LOC: JER 18:17 → JERBED 22:55 → FM/S 06-25 21:54
PROVIDERS: ADMIT Hospitalist; ATTEND Nurse Practitioner Acute Care
DX: A41.9 Sepsis, unspecified organism (principal); L03.116 Cellulitis of left lower limb; E11.65 Type 2 diabetes mellitus with hyperglycemia; E83.42 Hypomagnesemia; I10 Essential (primary) hypertension; E78.5 Hyperlipidemia, unspecified; Z79.4 Long term (current) use of insulin; C61 Malignant neoplasm of prostate; J45.909 Unspecified asthma, uncomplicated
CPT/HCPCS: 36415; 71045-TC-FY; 80048; 80053; 81003; 82803; 82962; 83036; 83605; 83735; 84100; 84484; 85025; 85027; 85610; 85730; 87040; 87086; 87804; 93005; 93010; 93971-TC; 97116-GP; 97162-GP; 99285-25; C9803; J0131; U0003; U0005

== ENCOUNTER 2021-09-28 12:37 | Emergency (ER) | payer OTHER ==
[2021-09-28 12:53] VITALS: TEMP 97.8; BMI 32.1
[2021-09-28 15:08] LABS: BASO % 0.8 % (0-2.0); EOS % 3.8 % (0-4.5); HEMATOCRIT 43.9 % (35.4-49); HEMOGLOBIN 14.6 GM/dL (11.7-16.9); LYMPH % 19.7 % (8-40); MCH 29.6 pg (25.7-33.7); MCHC 33.4 g/dl (32.0-35.9); MEAN CELL VOLUME 88.9 fl (80-96); MEAN PLT VOLUME 8.9 fl (7.5-11.1); MONO % 7.3 % (3.8-10.2); NEUT % 68.4 % (42.8-82.8); PLATELET COUNT 221 10^3/uL (134-434); RBC 4.94 M/mm3 (4.00-5.60); RDW 14.2 % (11.9-15.9); WHITE BLOOD COUNT 8.4 K/mm3 (4.0-10.0)
[2021-09-28 15:30] LABS: BLOOD UREA NITROGEN 18.8 mg/dL (7-18); CALCIUM 9.2 mg/dL (8.5-10.1)
[2021-09-28 15:31] LABS: ALBUMIN 3.5 g/dl (3.4-5.0)
[2021-09-28 15:33] LABS: CREATININE 0.8 mg/dL (0.55-1.3)
[2021-09-28 15:34] LABS: BILIRUBIN,TOTAL 0.6 mg/dL (0.2-1); TOT PROT 6.8 g/dl (6.4-8.2)
[2021-09-28] MEDS ORDERED: CEFAZOLIN 1 GM in DEXTROSE 5%-WATER - 50 ML IVPB ONE (16:04)
[2021-09-28] MEDS ORDERED: ceFAZolin SODIUM 1 GM VIAL ONE (16:15)
[2021-09-28 17:19] VITALS: BP 144/78; PULSE 78
== END 2021-09-28 17:31 | disposition home or self-care (01) ==
LOC: JER 12:37
PROC: 3E033GC Introduction of Other Therapeutic Substance into Peripheral Vein, Percutaneous Approach (ICD-10-PCS; principal; 2021-09-28)
DX: L03.116 Cellulitis of left lower limb (principal)
CPT/HCPCS: 36415; 80053; 85025; 93971-TC; 99284-25

== ENCOUNTER 2022-01-20 21:01 | Inpatient (IN) | payer OTHER ==
[2022-01-20 23:48] LABS: BASO % 0.9 % (0-2.0); EOS % 0.1 % (0-4.5); HEMATOCRIT 44.3 % (35.4-49); HEMOGLOBIN 15.2 GM/dL (11.7-16.9); LYMPH % 2.1 % (8-40); MCH 30.3 pg (25.7-33.7); MCHC 34.3 g/dl (32.0-35.9); MEAN CELL VOLUME 88.3 fl (80-96); MEAN PLT VOLUME 8.4 fl (7.5-11.1); NEUT % 91.9 % (42.8-82.8); PLATELET COUNT 195 10^3/uL (134-434); RBC 5.02 M/mm3 (4.00-5.60); RDW 14.3 % (11.9-15.9); WHITE BLOOD COUNT 20.8 K/mm3 (4.0-10.0)
[2022-01-21 00:09] LABS: INR 1.14 (0.83-1.09); PROTHROMBIN TIME (PATIENT) 13.1 SEC (9.7-13.0)
[2022-01-21 00:12] LABS: ACTIVATED PTT 34.4 SECONDS (25.2-36.5)
[2022-01-21] MEDS ORDERED: VANCOMYCIN 1,000 MG in DEXTROSE 5%-WATER - 250 ML IVPB ONE (00:15)
[2022-01-21] MEDS ORDERED: PIPERACILLIN/TAZOB 3.375 GM 3.375 GM in DEXTROSE 5%-WATER - 50 ML IVPB ONE (00:16)
[2022-01-21 00:17] LABS: ALBUMIN 3.4 g/dl (3.4-5.0); BLOOD UREA NITROGEN 19.7 mg/dL (7-18); CALCIUM 8.4 mg/dL (8.5-10.1)
[2022-01-21] MEDS ORDERED: CLINDAMYCIN 600MG PREMIX IVPB 600 MG/50 ML BAG IVPB ONE ×2 (00:17→02:30)
[2022-01-21 00:18] LABS: MAGNESIUM 1.9 mg/dL (1.8-2.4)
[2022-01-21] MEDS ORDERED: SODIUM CHLORIDE 0.9% 500 ML INFUS.BAG IV ONE (00:18)
[2022-01-21 00:20] LABS: CREATININE 0.9 mg/dL (0.55-1.3)
[2022-01-21 00:22] LABS: BILIRUBIN,TOTAL 0.8 mg/dL (0.2-1); TOT PROT 7.3 g/dl (6.4-8.2)
[2022-01-21] MEDS ORDERED: PIPERACILLIN/TAZOB 3.375 GM 3.375 GM/50 ML BAG IVPB ONE ×4 (01:16→18:10)
[2022-01-21 01:39] LABS: VENOUS BASE EXCESS 2.4 mmol/L (-2-2); VENOUS O2 SATURATION 74.3 % (70-80); VENOUS PCO2 40.7 mmHg (38-52); VENOUS PH 7.436 (7.310-7.410)
[2022-01-21] MEDS ORDERED: ACETAMINOPHEN 1000 MG/100 ML BAG IVPB ONE (02:29)
[2022-01-21] MEDS ORDERED: VANCOMYCIN/WATER FOR INJ (PEG) 1,000 MG/200 ML BAG IVPB ONE (02:30)
[2022-01-21] MEDS ORDERED: ACETAMINOPHEN INJECTION 100 ML IVPB ONE (02:30)
[2022-01-21] MEDS ORDERED: SODIUM CHLORIDE 1,000 ML IV SCH (05:00)
[2022-01-21] MEDS ORDERED: ACETAMINOPHEN 325 MG TABLET (FP) PO PRN (05:08)
[2022-01-21] MEDS ORDERED: MELATONIN 5 MG TABLETS PO PRN (05:08)
[2022-01-21] MEDS ORDERED: VANCOMYCIN PREMIX 1.5 GM 1,500 MG/300 ML BAG IVPB SCH (06:00)
[2022-01-21 07:59] LABS: ANISOCYTOSIS 2+; MACROCYTOSIS 0
[2022-01-21] MEDS ORDERED: PIPERACILLIN/TAZOB 3.375 GM 3.375 GM in DEXTROSE 5%-WATER - 50 ML IVPB SCH (08:00)
[2022-01-21 09:07] LABS: URINE APPEARANCE CLEAR; URINE COLOR YELLOW
[2022-01-21 09:08] LABS: PH,URINE 5.5 (5.0-8.0); URINE BILIRUBIN NEGATIVE (NEGATIVE); URINE GLUCOSE (UA) 500 mg/dl (NEGATIVE); URINE KETONE 15 mg/dl (NEGATIVE); URINE LEUK ESTERASE NEGATIVE (NEGATIVE); URINE NITRITE NEGATIVE (NEGATIVE); URINE PROTEIN 2+ (NEGATIVE); URINE UROBILINOGEN 0.2 mg/dL (0.2-1.0)
[2022-01-21 09:09] LABS: EPI CELLS 5.5 /uL (0-25.1); HYALINE CASTS 1.5 /uL (0-3.1); URINE BACTERIA 1.9 /uL (0-1359); URINE RBC 3.7 /uL (0-23.9); URINE WBC 4.7 /uL (0-25.8)
[2022-01-21 09:17] LABS: HEMATOCRIT 41.6 % (35.4-49); HEMOGLOBIN 14.1 GM/dL (11.7-16.9); MCH 30.2 pg (25.7-33.7); MCHC 33.8 g/dl (32.0-35.9); MEAN CELL VOLUME 89.2 fl (80-96); MEAN PLT VOLUME 8.8 fl (7.5-11.1); PLATELET COUNT 168 10^3/uL (134-434); RBC 4.67 M/mm3 (4.00-5.60); WHITE BLOOD COUNT 17.7 K/mm3 (4.0-10.0)
[2022-01-21 09:43] LABS: CALCIUM 8.2 mg/dL (8.5-10.1)
[2022-01-21 09:44] LABS: ALBUMIN 3.1 g/dl (3.4-5.0); BLOOD UREA NITROGEN 17.9 mg/dL (7-18)
[2022-01-21 09:47] LABS: PHOSPHOROUS 2.9 mg/dL (2.5-4.9)
[2022-01-21 09:48] LABS: TOT PROT 6.1 g/dl (6.4-8.2)
[2022-01-21] MEDS ORDERED: amLODIPine BESYLATE 2.5 MG TABLET (FP) ONE (09:50)
[2022-01-21] MEDS ORDERED: TAMSULOSIN HCL 0.4 MG CAP ONE (09:50)
[2022-01-21] MEDS ORDERED: ENOXAPARIN NA (PORCINE) 40 MG/0.4 ML DISP.SYRIN SQ ONE (09:50)
[2022-01-21] MEDS ORDERED: amLODIPine BESYLATE 2.5 MG TABLET (FP) PO SCH (10:00)
[2022-01-21] MEDS: TAMSULOSIN HCL 0.4 MG CAP PO SCH (10:30)
[2022-01-21] MEDS: ENOXAPARIN NA (PORCINE) 40 MG/0.4 ML DISP.SYRIN SQ SCH (10:30)
[2022-01-21] MEDS ORDERED: POTASSIUM CHLORIDE TABS 20 MEQ TABLET.ER (FP) PO ONE ×2 (10:36→14:07)
[2022-01-21] MEDS ORDERED: ACETAMINOPHEN 325 MG TABLET (FP) ONE (10:38)
[2022-01-21 10:42] LABS: ANISOCYTOSIS 0; HELMET CELLS 0; HOWELL-JOLLY BODIES 0; MACROCYTOSIS 0; OVALOCYTE 0; ROULEAU 0; SICKELED CELLS 0; TARGET CELLS 0; TEAR DROP CELLS 0; TOXIC GRANULATION 0
[2022-01-21] MEDS: PIPERACILLIN/TAZOB 3.375 GM 3.375 GM in DEXTROSE 5%-WATER - 50 ML IVPB SCH (18:30)
[2022-01-21] MEDS: VANCOMYCIN PREMIX 1.5 GM 1,500 MG/300 ML BAG IVPB SCH (18:51)
[2022-01-21] MEDS ORDERED: INSULIN (LEVEMIR) 100 UNITS/ML UNITS SQ ONE (22:59)
[2022-01-22] MEDS: PIPERACILLIN/TAZOB 3.375 GM 3.375 GM in DEXTROSE 5%-WATER - 50 ML IVPB SCH ×3 (02:02→17:41)
[2022-01-22] MEDS: VANCOMYCIN PREMIX 1.5 GM 1,500 MG/300 ML BAG IVPB SCH (02:23)
[2022-01-22 03:26] VITALS: BMI 31.6
[2022-01-22] MEDS: INSULIN SLIDING SCALE (NOVOLOG) 1 VIAL SQ SCH ×4 (06:08→22:28)
[2022-01-22 08:27] LABS: BASO % 0.5 % (0-2.0); EOS % 1.8 % (0-4.5); HEMATOCRIT 37.2 % (35.4-49); HEMOGLOBIN 12.8 GM/dL (11.7-16.9); LYMPH % 8.8 % (8-40); MCH 30.3 pg (25.7-33.7); MCHC 34.4 g/dl (32.0-35.9); MEAN CELL VOLUME 88.2 fl (80-96); MEAN PLT VOLUME 8.7 fl (7.5-11.1); MONO % 8.5 % (3.8-10.2); NEUT % 80.4 % (42.8-82.8); PLATELET COUNT 176 10^3/uL (134-434); RBC 4.22 M/mm3 (4.00-5.60); RDW 14.4 % (11.9-15.9); WHITE BLOOD COUNT 10.7 K/mm3 (4.0-10.0)
[2022-01-22 08:48] LABS: BLOOD UREA NITROGEN 17.9 mg/dL (7-18); CALCIUM 8.2 mg/dL (8.5-10.1)
[2022-01-22 08:52] LABS: CREATININE 0.8 mg/dL (0.55-1.3)
[2022-01-22] MEDS ORDERED: PIPERACILLIN/TAZOB 3.375 GM 3.375 GM in DEXTROSE 5%-WATER - 50 ML IVPB SCH (09:00)
[2022-01-22] MEDS: TAMSULOSIN HCL 0.4 MG CAP PO SCH (10:14)
[2022-01-22] MEDS: ENOXAPARIN NA (PORCINE) 40 MG/0.4 ML DISP.SYRIN SQ SCH (10:14)
[2022-01-22 22:31] VITALS: RESP 18
[2022-01-23] MEDS: PIPERACILLIN/TAZOB 3.375 GM 3.375 GM in DEXTROSE 5%-WATER - 50 ML IVPB SCH ×3 (01:45→17:45)
[2022-01-23] MEDS: INSULIN SLIDING SCALE (NOVOLOG) 1 VIAL SQ SCH ×4 (06:46→22:31)
[2022-01-23] MEDS: TAMSULOSIN HCL 0.4 MG CAP PO SCH (12:37)
[2022-01-23] MEDS: ENOXAPARIN NA (PORCINE) 40 MG/0.4 ML DISP.SYRIN SQ SCH (17:56)
[2022-01-24] MEDS: PIPERACILLIN/TAZOB 3.375 GM 3.375 GM in DEXTROSE 5%-WATER - 50 ML IVPB SCH ×3 (02:07→17:15)
[2022-01-24] MEDS: INSULIN SLIDING SCALE (NOVOLOG) 1 VIAL SQ SCH ×4 (06:02→23:21)
[2022-01-24] MEDS: TAMSULOSIN HCL 0.4 MG CAP PO SCH (08:33)
[2022-01-24] MEDS: VANCOMYCIN PREMIX 1.5 GM 1,500 MG/300 ML BAG IVPB SCH ×2 (09:22→18:20)
[2022-01-24] MEDS: ENOXAPARIN NA (PORCINE) 40 MG/0.4 ML DISP.SYRIN SQ SCH (09:23)
[2022-01-24] MEDS: NYSTATIN 100,000 UNIT/GM TOPICAL CREAM 15 GM TUBE TP SCH ×2 (11:31→23:21)
[2022-01-24 12:59] LABS: HEMATOCRIT 37.6 % (35.4-49); HEMOGLOBIN 13.1 GM/dL (11.7-16.9); MCH 30.5 pg (25.7-33.7); MCHC 34.7 g/dl (32.0-35.9); MEAN CELL VOLUME 87.9 fl (80-96); MEAN PLT VOLUME 9.6 fl (7.5-11.1); PLATELET COUNT 211 10^3/uL (134-434); RBC 4.27 M/mm3 (4.00-5.60); RDW 13.9 % (11.9-15.9); WHITE BLOOD COUNT 9.4 K/mm3 (4.0-10.0)
[2022-01-24 14:32] LABS: ALBUMIN 2.8 g/dl (3.4-5.0); BILIRUBIN,TOTAL 1.1 mg/dL (0.2-1); BLOOD UREA NITROGEN 14.7 mg/dL (7-18); CALCIUM 8.9 mg/dL (8.5-10.1); CREATININE 0.7 mg/dL (0.55-1.3)
[2022-01-24] MEDS ORDERED: LISINOPRIL 5 MG TABLET PO ONE (20:00)
[2022-01-25] MEDS: PIPERACILLIN/TAZOB 3.375 GM 3.375 GM in DEXTROSE 5%-WATER - 50 ML IVPB SCH ×3 (02:12→19:45)
[2022-01-25] MEDS: INSULIN SLIDING SCALE (NOVOLOG) 1 VIAL SQ SCH ×3 (06:42→18:19)
[2022-01-25] MEDS: TAMSULOSIN HCL 0.4 MG CAP PO SCH (09:03)
[2022-01-25 09:19] LABS: HEMATOCRIT 39.6 % (35.4-49); HEMOGLOBIN 13.8 GM/dL (11.7-16.9); MCH 30.7 pg (25.7-33.7); MCHC 34.7 g/dl (32.0-35.9); MEAN CELL VOLUME 88.5 fl (80-96); MEAN PLT VOLUME 8.7 fl (7.5-11.1); PLATELET COUNT 242 10^3/uL (134-434); RBC 4.48 M/mm3 (4.00-5.60); RDW 13.9 % (11.9-15.9)
[2022-01-25] MEDS: NYSTATIN 100,000 UNIT/GM TOPICAL CREAM 15 GM TUBE TP SCH (09:57)
[2022-01-25] MEDS: ENOXAPARIN NA (PORCINE) 40 MG/0.4 ML DISP.SYRIN SQ SCH (09:58)
[2022-01-25 15:37] VITALS: BP 146/77; PULSE 77; TEMP 98.3
== END 2022-01-25 18:29 | disposition home or self-care (01) | DRG 872 ==
LOC: JER 21:01 → JERBED 01-21 06:26 → J5S 01-21 19:42
PROVIDERS: ADMIT Hospitalist; ATTEND Internal Medicine
DX: A41.9 Sepsis, unspecified organism (principal); L03.115 Cellulitis of right lower limb; L03.116 Cellulitis of left lower limb; E11.9 Type 2 diabetes mellitus without complications; I10 Essential (primary) hypertension; D72.829 Elevated white blood cell count, unspecified; Z98.890 Other specified postprocedural states; Z79.01 Long term (current) use of anticoagulants; R50.9 Fever, unspecified; M19.90 Unspecified osteoarthritis, unspecified site; E78.5 Hyperlipidemia, unspecified; J45.909 Unspecified asthma, uncomplicated; Z79.84 Long term (current) use of oral hypoglycemic drugs; C61 Malignant neoplasm of prostate; R60.9 Edema, unspecified; R00.0 Tachycardia, unspecified
CPT/HCPCS: 0241U-QW; 36415; 71045-TC-FY; 71275-TC; 80048; 80053; 81003; 82803; 82962; 83605; 83735; 84100; 84443; 84484; 85025; 85027; 85610; 85651; 85730; 86140; 87040; 87086; 93005; 93010; 93306-TC; 93970-TC; 99285-25; C9803-CS; Q9967; U0003; U0005

== ENCOUNTER 2022-09-29 11:18 | Observation (INO) | payer OTHER ==
[2022-09-29] MEDS ORDERED: ALBUTEROL SO4 2.5/IPRATROPIUM 0.5 INH SOL 3 ML VIAL.NEB. NEB ONE ×2 (11:49→12:45)
[2022-09-29 12:56] LABS: BASO % 0.3 % (0-2.0); EOS % 1.2 % (0-4.5); HEMATOCRIT 44.9 % (35.4-49); HEMOGLOBIN 15.5 GM/dL (11.7-16.9); LYMPH % 12.4 % (8-40); MCH 30.9 pg (25.7-33.7); MCHC 34.5 g/dl (32.0-35.9); MEAN CELL VOLUME 89.5 fl (80-96); MEAN PLT VOLUME 9.1 fl (7.5-11.1); MONO % 7.1 % (3.8-10.2); PLATELET COUNT 240 10^3/uL (134-434); RBC 5.02 M/mm3 (4.00-5.60); RDW 14.1 % (11.9-15.9); VENOUS BASE EXCESS 0.1 mmol/L (-2-2); VENOUS PCO2 30.1 mmHg (38-52); VENOUS PH 7.485 (7.310-7.410); WHITE BLOOD COUNT 9.6 K/mm3 (4.0-10.0)
[2022-09-29 13:02] LABS: INR 1.1 (0.83-1.09); PROTHROMBIN TIME (PATIENT) 12.8 SEC (9.7-13.0)
[2022-09-29 13:04] LABS: ACTIVATED PTT 38.7 SECONDS (25.2-36.5)
[2022-09-29 13:17] LABS: ALBUMIN 3.9 g/dl (3.4-5.0); BLOOD UREA NITROGEN 17.7 mg/dL (7-18); CALCIUM 9.1 mg/dL (8.5-10.1); MAGNESIUM 2.1 mg/dL (1.8-2.4)
[2022-09-29 13:20] LABS: CREATININE 0.9 mg/dL (0.55-1.3); PHOSPHOROUS 1.9 mg/dL (2.5-4.9)
[2022-09-29 13:22] LABS: BILIRUBIN,TOTAL 0.8 mg/dL (0.2-1)
[2022-09-29 13:25] LABS: N-TERMINAL BNP 237.8 pg/ml (5-450)
[2022-09-29] MEDS ORDERED: NAPH,MB-DB/K PH,MBDB POWDER PACKET PO ONE (16:50)
[2022-09-29] MEDS ORDERED: amLODIPine BESYLATE 5 MG TABLET (FP) ONE (17:15)
[2022-09-29] MEDS ORDERED: NAPH,MB-DB/K PH,MBDB POWDER PACKET ONE (17:16)
[2022-09-29] MEDS ORDERED: LOSARTAN POTASSIUM 50 MG TABLET ONE (17:16)
[2022-09-29] MEDS: amLODIPine BESYLATE 5 MG TABLET (FP) PO SCH (17:23)
[2022-09-29] MEDS: LOSARTAN POTASSIUM 50 MG TABLET PO SCH (17:23)
[2022-09-29 18:58] VITALS: BMI 30.7
[2022-09-29] MEDS: INSULIN SLIDING SCALE (NOVOLOG) 1 VIAL SQ SCH (21:17)
[2022-09-29] MEDS: PATIENT'S OWN MEDICATION (NON-FORMULARY) (Prednisolone 1% Ophthalmic [Pred Forte 1% -] 1 D OS SCH (22:34)
[2022-09-30] MEDS: INSULIN SLIDING SCALE (NOVOLOG) 1 VIAL SQ SCH ×2 (06:24→11:46)
[2022-09-30 08:13] LABS: BASO % 0.3 % (0-2.0); EOS % 1.7 % (0-4.5); HEMOGLOBIN 14.8 GM/dL (11.7-16.9); LYMPH % 12.9 % (8-40); MCH 31.3 pg (25.7-33.7); MCHC 35.2 g/dl (32.0-35.9); MEAN CELL VOLUME 88.9 fl (80-96); MEAN PLT VOLUME 8.5 fl (7.5-11.1); MONO % 8.4 % (3.8-10.2); NEUT % 76.7 % (42.8-82.8); PLATELET COUNT 227 10^3/uL (134-434); RBC 4.73 M/mm3 (4.00-5.60); WHITE BLOOD COUNT 9.6 K/mm3 (4.0-10.0)
[2022-09-30 08:37] LABS: CALCIUM 9.6 mg/dL (8.5-10.1)
[2022-09-30 08:39] LABS: ALBUMIN 3.7 g/dl (3.4-5.0); BLOOD UREA NITROGEN 19.4 mg/dL (7-18)
[2022-09-30 08:42] LABS: TOT PROT 6.6 g/dl (6.4-8.2)
[2022-09-30 08:43] LABS: BILIRUBIN,TOTAL 0.9 mg/dL (0.2-1)
[2022-09-30] MEDS: LOSARTAN POTASSIUM 50 MG TABLET PO SCH (09:24)
[2022-09-30] MEDS: amLODIPine BESYLATE 5 MG TABLET (FP) PO SCH (09:25)
[2022-09-30] MEDS: PATIENT'S OWN MEDICATION (NON-FORMULARY) (Prednisolone 1% Ophthalmic [Pred Forte 1% -] 1 D OS SCH ×2 (09:32→14:00)
[2022-09-30] MEDS ORDERED: ENOXAPARIN NA (PORCINE) 40 MG/0.4 ML DISP.SYRIN SQ SCH (10:00)
[2022-09-30] MEDS ORDERED: FUROSEMIDE 20 MG TABLET (FP) PO SCH (10:00)
[2022-09-30 14:18] VITALS: BP 146/73; PULSE 87; RESP 18; TEMP 97.3
== END 2022-09-30 15:34 | disposition home or self-care (01) ==
LOC: JER 11:18 → JERBED 15:12 → J5S 18:07
PROVIDERS: ADMIT Internal Medicine; ATTEND Internal Medicine
PROC: 3E0F7GC Introduction of Other Therapeutic Substance into Respiratory Tract, Via Natural or Artificial Opening (ICD-10-PCS; principal; 2022-09-29)
PROC: 3E023GC Introduction of Other Therapeutic Substance into Muscle, Percutaneous Approach (ICD-10-PCS; 2022-09-29)
PROC: 3E013VG Introduction of Insulin into Subcutaneous Tissue, Percutaneous Approach (ICD-10-PCS; 2022-09-29)
DX: R10.9 Unspecified abdominal pain (principal); E11.9 Type 2 diabetes mellitus without complications; E78.5 Hyperlipidemia, unspecified; I10 Essential (primary) hypertension; E66.8 Other obesity; Z68.30 Body mass index [BMI] 30.0-30.9, adult; J45.909 Unspecified asthma, uncomplicated; R06.02 Shortness of breath; Z88.8 Allergy status to other drugs, medicaments and biological substances; Z85.46 Personal history of malignant neoplasm of prostate
CPT/HCPCS: 0241U-QW; 36415; 71045-TC-FY; 71275-TC; 80053; 82803; 82962; 83735; 83880; 84100; 84484; 85025; 85610; 85730; 93005; 93010; 94640; 96372; 99285-25; G0378; Q9967

== ENCOUNTER 2023-03-27 15:08 | Emergency (ER) | payer OTHER ==
[2023-03-27 15:37] VITALS: BP 157/76; PULSE 93; RESP 16; TEMP 98.7; BMI 30.4
[2023-03-27] MEDS ORDERED: KETOROLAC TROMETHAMINE 30 MG/1 ML VIAL IM ONE (16:05)
[2023-03-27] MEDS ORDERED: KETOROLAC TROMETHAMINE 30 MG/1 ML VIAL ONE (16:18)
== END 2023-03-27 16:43 | disposition home or self-care (01) ==
LOC: JER 15:08
PROC: 3E0233Z Introduction of Anti-inflammatory into Muscle, Percutaneous Approach (ICD-10-PCS; principal; 2023-03-27)
DX: R07.89 Other chest pain (principal); R21 Rash and other nonspecific skin eruption; M25.511 Pain in right shoulder; B02.9 Zoster without complications
CPT/HCPCS: 99284-25

== ENCOUNTER 2023-04-23 08:00 | Emergency (ER) | payer OTHER ==
[2023-04-23 08:28] VITALS: BP 137/96; PULSE 120; RESP 16; TEMP 98.1; BMI 31.3
[2023-04-23] MEDS ORDERED: SODIUM CHLORIDE 0.9% 500 ML INFUS.BAG IV ONE (08:35)
[2023-04-23 09:29] LABS: VENOUS BASE EXCESS 1.4 mmol/L (-2-2); VENOUS O2 SATURATION 65.2 % (70-80); VENOUS PCO2 46.2 mmHg (38-52); VENOUS PH 7.386 (7.310-7.410)
[2023-04-23] MEDS ORDERED: DEXTROSE 50%-WATER 25 GM/50 ML DISP.SYRIN IVPUSH ONE (09:31)
[2023-04-23 09:32] LABS: URINE APPEARANCE CLEAR; URINE BILIRUBIN NEGATIVE (NEGATIVE); URINE COLOR YELLOW; URINE GLUCOSE (UA) 2+ (NEGATIVE); URINE KETONE NEGATIVE (NEGATIVE); URINE LEUK ESTERASE NEGATIVE (NEGATIVE); URINE NITRITE NEGATIVE (NEGATIVE); URINE PROTEIN NEGATIVE (NEGATIVE); URINE UROBILINOGEN 0.2 mg/dL (0.2-1.0)
[2023-04-23] MEDS ORDERED: DEXTROSE 50%-WATER 25 GM/50 ML DISP.SYRIN ONE (09:33)
[2023-04-23 09:38] LABS: BASO % 0.5 % (0-2.0); EOS % 3.2 % (0-4.5); HEMATOCRIT 46.1 % (35.4-49); HEMOGLOBIN 15.5 GM/dL (11.7-16.9); LYMPH % 12.3 % (8-40); MCHC 33.6 g/dl (32.0-35.9); MEAN CELL VOLUME 92.3 fl (80-96); MEAN PLT VOLUME 8.9 fl (7.5-11.1); MONO % 5.1 % (3.8-10.2); NEUT % 78.9 % (42.8-82.8); PLATELET COUNT 246 10^3/uL (134-434); RBC 4.99 M/mm3 (4.00-5.60); RDW 14.5 % (11.9-15.9); WHITE BLOOD COUNT 9.5 K/mm3 (4.0-10.0)
[2023-04-23 09:50] LABS: POTASSIUM 3.7 mmol/L (3.5-5.1)
[2023-04-23 09:52] LABS: ALBUMIN 3.9 g/dl (3.4-5.0); BLOOD UREA NITROGEN 17.3 mg/dL (7-18); MAGNESIUM 2.2 mg/dL (1.8-2.4)
[2023-04-23 09:55] LABS: CREATININE 0.8 mg/dL (0.55-1.3)
[2023-04-23 09:57] LABS: BILIRUBIN,TOTAL 0.4 mg/dL (0.2-1); TOT PROT 7.1 g/dl (6.4-8.2)
[2023-04-23 10:51] LABS: EPI CELLS 0 /uL (0-25.1); HYALINE CASTS 0 /uL (0-3.1); URINE BACTERIA 17 /uL (0-1359); URINE RBC 8 /uL (0-23.9); URINE WBC 0 /uL (0-25.8)
[2023-04-23] MEDS ORDERED: PREGABALIN 100 MG CAPSULE PO ONE (11:52)
[2023-04-23] MEDS ORDERED: PREGABALIN 100 MG CAPSULE ONE (12:10)
== END 2023-04-23 15:21 | disposition home or self-care (01) ==
LOC: JER 08:00
PROC: 3E033GC Introduction of Other Therapeutic Substance into Peripheral Vein, Percutaneous Approach (ICD-10-PCS; principal; 2023-04-23)
DX: E16.2 Hypoglycemia, unspecified (principal); T38.3X5A Adverse effect of insulin and oral hypoglycemic [antidiabetic] drugs, initial encounter; R25.1 Tremor, unspecified; R11.10 Vomiting, unspecified; R53.1 Weakness; R53.83 Other fatigue
CPT/HCPCS: 36415; 80053; 81003; 82010; 82803; 82962; 83735; 85025; 87086; 99284-25